=== PATIENT | female | born 1940 | race Caucasian/White ===

== ENCOUNTER → 2017-12-03 13:32 | Outpatient (CLI) | payer MEDICARE, OTHER, SELFPAY ==
--- NOTE | 2017-12-03 13:36 | RAD_ITS ---
STUDY: X-RAY - UNILATERAL RIBS ( LEFT ) WITH CHEST REASON FOR EXAM: Female, 77 years old. Sharp pain in mid lateral to anterior left rib after shutting door TECHNIQUE - RIBS: 2 view(s) of the ribs. TECHNIQUE - CHEST: Single frontal view of the chest. COMPARISON: Chest x-ray 04/30/2015. CT chest 05/19/2014 FINDINGS - RIBS: Acute minimal displaced fracture anterior 6 left rib. FINDINGS - CHEST: There is no demonstrated pneumothorax. Stable hyperinflation with interstitial disease, blunting of the left costophrenic angle. Stable left basilar nodules. New left perihilar linear interstitial changes possible scarring or atelectasis. Left pleural effusion/thickening along the left lower chest wall. Normal size heart. There are calcified mediastinal lymph nodes. Normal visualized pulmonary arteries. There is atherosclerotic calcification of the aortic arch with tortuosity. There is demineralization of the osseous structures. There is degenerative osteoarthritis of the bilateral shoulders. There is no demonstrated abnormality of the visualized soft tissue structures of the upper abdomen. RAD/Ribs Uni Min 3V w/PA Chest IMPRESSION: RIBS: Acute minimally displaced fracture anterior sixth left rib. CHEST: Stable emphysema, chronic interstitial lung disease, blunting of the left costophrenic angle left lower chest wall, remote granulomatous exposure, arteriosclerosis, osteoporosis and degenerative changes. Question of atelectasis and/or scarring in the left perihilar parenchyma. Electronically Signed: Tierra Hinojosa MD at 3:13 EST , Service support ,
== END ==
PROVIDERS: Family Provider Internal Medicine; PCP Internal Medicine; Visit Provider Internal Medicine
DX: R07.81 Pleurodynia (principal)
CPT/HCPCS: 71101

== ENCOUNTER → 2018-06-03 08:05 | Outpatient (CLI) | payer MEDICARE, OTHER, SELFPAY ==
[2018-06-03 08:11] LABS: Bacteria 0 SEEN /hpf (None Seen); Mucous, Urine 0 SEEN /hpf (<or=2+); Red Blood Cells-Urine 0 SEEN /hpf (0-5); White Blood Cells 0 SEEN /hpf (0-5)
[2018-06-03 08:57] LABS: Color, Urine Yellow (Yellow); Glucose, Dipstick Normal (Normal); Ketone-Dipstick Negative (Negative); Leukocyte Esterase-Dipstick Negative /ul (Negative); Nitrite-Dipstick Negative (Negative); Occult Blood-Urine Negative /ul (Negative); Protein-Dipstick 30 mg/dl (Negative); Specific Gravity, Urine 1.005 (1.002-1.030); Urine Bilirubin Dipstick Negative (Negative); Urine Clarity Clear (Clear); Urine Urobilinogen Normal (Normal)
[2018-06-03 09:02] LABS: Squamous Epithelial Cells - UA 0-5 SEEN /hpf (5-10)
[2018-06-03 09:04] LABS: Absolute Lymphocyte Count 1.48 X10^3/ul (0.83-4.51); Absolute Neutrophil Count 7.6 X10^3/uL (2.0-7.7); Basophil# 0.05 X10^3/uL; Basophil% 0.5 % (0-1); Eosinophil# 0.31 X10^3/uL; Hematocrit 55.5 % (37-47); Lymphocyte # 1.48 X10^3/ul (4.0); Lymphocyte % 14.2 % (19-41); Mean Corp Hgb Conc 32.4 g/gl (32-36); Mean Corpuscular Hgb 29.8 pg (27.0-32.0); Mean Corpuscular Volume 91.9 fL (81-99); Mean Platelet Vol. 10.7 fl (6.2-12.0); Monocyte# 0.98 X10^3/uL; Monocyte% 9.4 % (0-10); Neutrophil # 7.56 X10^3/uL (2.7-7.7); Neutrophil % 72.6 % (47-70); Platelet Count 224 K/mm3 (150-450); RBC Distribution Width CV 16.9 % (11.6-14.6); RBC Distribution Width SD 56.5 fl (35.1-43.9); Red Blood Count 6.04 M/mm3 (4.2-5.4); White Blood Count 10.4 K/mm3 (4.4-11.0)
[2018-06-03 09:13] LABS: POSITIVE COUNT NO; POSITIVE DIFFERENTIAL NO; POSITIVE MORPHOLOGY NO
[2018-06-03 09:23] LABS: Microalbumin:Creatinine Ratio 725.2 mg/g CRE (<30 mg/g CRE)
[2018-06-03 09:33] LABS: Vitamin D,25 Hydroxy 48.8 ng/mL (29.95-100.01)
[2018-06-03 09:58] LABS: BUN 12 mg/dL (7-18); Creatinine, Serum 0.75 mg/dL (0.55-1.02); Glucose 85 mg/dL (74-106)
[2018-06-03 09:59] LABS: ALB/GLOB Ratio 0.9 RATIO (0.9-2.4); AST(SGOT) 29 U/L (15-37); Alanine Aminotransfer ALT/SGPT 18 U/L (13-56); Albumin, Serum 3.7 g/dL (3.2-5.0); Alkaline Phosphatase 81 U/L (45-117); Anion Gap 7 (5-15); BUN/Creat Ratio 15.9 RATIO (10-20); Calcium,Total 10.2 mg/dL (8.5-10.1); Chloride 96 mmol/L (98-107); Cholesterol 129 mg/dL (200); EST Glomerular Filtration Rate 79 mL/min (>60); Est Glom Filt Rate - Afr Amer 96 mL/min (>60); Globulin 4.3 g/dL (2.2-4.2); High Density Lipoprotein 59 mg/dL; Potassium 4.8 mmol/L (3.5-5.1); Sodium Level 133 mmol/L (136-145); T4 Free Direct 1.17 ng/dL (0.76-1.46); Thyroid Stim Hormone (TSH) 2.48 uIU/mL (0.358-3.74); Triglycerides 166 mg/dL; Very Low Density Lipoprotein 33 mg/dL (5-40)
[2018-06-05 12:09] LABS: CHOLESTEROL TOTAL 147 mg/dL (100-199); HDL-C 52 mg/dL (>39); HDL-P TOTAL 31.5 umol/L (>=30.5); SMALL LDL-P 279 nmol/L (<=527); TRIGLYCERIDES 168 mg/dL (0-149)
[2018-06-06 17:01] LABS: LDL SIZE 20.9 nm (>20.5); LDL-C 61 mg/dL (0-99); LDL-P 743 nmol/L (<1000); LP-IR SCORE ** 47 (<=45)
== END ==
PROVIDERS: Family Provider Internal Medicine; PCP Internal Medicine; Visit Provider Internal Medicine
DX: E11.65 Type 2 diabetes mellitus with hyperglycemia (principal); I25.10 Atherosclerotic heart disease of native coronary artery without angina pectoris; E78.00 Pure hypercholesterolemia, unspecified; R94.6 Abnormal results of thyroid function studies; E55.9 Vitamin D deficiency, unspecified
CPT/HCPCS: 80053; 80061; 81001; 82043; 82306; 82570; 83704; 84439; 84443; 84481; 85025

== ENCOUNTER → 2018-06-04 09:38 | Outpatient (CLI) | payer MEDICARE, OTHER, SELFPAY ==
--- NOTE | 2018-06-04 09:42 | RAD_ITS ---
STUDY: X-RAY - ABDOMEN/PELVIS REASON FOR EXAM: Female, 78 years old. Abdominal pain TECHNIQUE: A single AP view of the abdomen and pelvis was obtained. COMPARISON: CT abdomen and pelvis dated March 19, 2017 FINDINGS: The lung bases were not imaged. There is an unremarkable bowel gas pattern. There is no demonstrated free abdominal air. There is no demonstrated abnormality of the major organs. There are stable phleboliths in the mid left pelvis. There are diffuse vascular calcifications. There are mild degenerative changes in the visualized spine. RAD/Abdomen Single View IMPRESSION: No acute abnormalities are seen in the abdomen or pelvis. Electronically Signed: America Gan MD at 1:29 EDT Tel Direct: [phone], Service support ,
--- NOTE | 2018-06-04 09:43 | RAD_ITS ---
STUDY: X-RAY - LUMBAR SPINE REASON FOR EXAM: Female, 78 years old. Pain TECHNIQUE: Five view(s) of the lumbar spine were obtained. COMPARISON: CT abdomen and pelvis dated March 19, 2017 FINDINGS: Normal lumbar lordosis. There is no significant scoliosis. There is normal alignment of the vertebrae. The vertebral bodies show no significant abnormalities. Vertebral body heights are maintained. There is mild disc space narrowing at L5-S1. There is atherosclerotic calcification of the abdominal aorta without a demonstrated aneurysm. RAD/L/S Spine Min 4 Views IMPRESSION: There are mild degenerative disc changes at L5-S1. Electronically Signed: America Gan MD at 22:44 EDT Tel Direct: [phone], Service support ,
== END ==
PROVIDERS: Family Provider Internal Medicine; PCP Internal Medicine; Visit Provider Nurse Practitioner Gerontology
DX: M54.5 Low back pain (principal); R10.9 Unspecified abdominal pain
CPT/HCPCS: 72110; 74018

== ENCOUNTER → 2018-07-02 06:25 | Outpatient (CLI) | payer MEDICARE, OTHER, SELFPAY ==
--- NOTE | 2018-07-02 13:18 | STRESSREP ---
Stress Test Report Date: 07/02/2018 Procedure: Pharmacologic stress nuclear imaging study Indications: Abnormal ECG; CAD; PCI Consent: Per the patient Procedure: The patient underwent pharmacologic (Regadenoson) evaluation with a peak heart rate of 110 beats per minute (77 predicted maximal heart rate) and a peak blood pressure of 168/72 mmHg. The baseline ECG demonstrated sinus rhythm with a left bundle branch block pattern. The peak pharmacologic ECG demonstrated a continued left bundle branch block pattern. There were rare ventricular couplets during recovery. There was no complaint of chest discomfort during pharmacologic infusion or recovery. The examination was discontinued secondary to completion of protocol. Impression: 1. Pharmacologic (Regadenoson) evaluation 2. Peak pharmacologic ECG with a continued left bundle branch block pattern. 3. There were rare ventricular couplets during recovery 4. Nuclear images pending Myocardial perfusion imaging study: Technique: The patient was injected with 11.3 millicuries of technetium 99m Cardiolite and subsequently rest SPECT Cardiolite nuclear imaging was obtained in the horizontal long, vertical long, and short axis views. The patient underwent pharmacologic (Regadenoson) evaluation with a peak heart rate of 110 beats per minute (77 % percent predicted maximal heart rate) and a peak blood pressure of 168/72 mmHg. The patient was injected with 33.6 millicuries of technetium 99m Cardiolite and subsequently stress SPECT Cardiolite nuclear imaging was obtained in the horizontal long, vertical long, and short axis views. A gated Cardiolite study at peak stress was obtained. Interpretation: Rest and stress SPECT Cardiolite nuclear imaging status post realignment, normalization, and attenuation correction demonstrate a small area of diminished tracer uptake in portions of the distal anteroseptal/septal apical segments without significant change between rest and stress. There are similar type changes on the resting and stress polar map images. There is end systolic thickening and brightening. The gated Cardiolite study demonstrates myocardial thickening and inward wall motion. The reported LVEF is 67 %. Impression: 1. Rest and stress SPECT currently nuclear imaging demonstrate a small area of diminished tracer uptake in portions of the distal anteroseptal/septal apical segments without significant change between rest and stress potentially compatible with the underlying IVCD pattern, although, an area of previous myocardial injury/infarction cannot necessarily be excluded. There are no myocardial perfusion changes consider diagnostic for associated stress-induced myocardial ischemia. 2. The gated Cardiolite study reports an LVEF of 67 %. This note was generated with [employer] software. It may contain incorrect words, spelling, and punctuation that were not noted in checking the note before signing.
== END ==
PROVIDERS: Family Provider Internal Medicine; PCP Internal Medicine; Visit Provider Internal Medicine
DX: I25.10 Atherosclerotic heart disease of native coronary artery without angina pectoris (principal); R94.31 Abnormal electrocardiogram [ECG] [EKG]; J44.9 Chronic obstructive pulmonary disease, unspecified; M81.0 Age-related osteoporosis without current pathological fracture; Z12.2 Encounter for screening for malignant neoplasm of respiratory organs; Z87.891 Personal history of nicotine dependence
CPT/HCPCS: 78452; 93017; 93306; A9500; G0297; A4216; J2785

== ENCOUNTER → 2018-07-29 10:27 | Outpatient (CLI) | payer MEDICARE, OTHER, SELFPAY ==
--- NOTE | 2018-07-29 07:00 | PET_ITS ---
EXAMINATION: FDG PET CT INDICATIONS: A 78-year-old female with reported history of pulmonary nodularity. COMPARISON EXAMINATION: CT of the chest report dated 07/02/18. NON-INDEX LESION SIZE SUV INTERPRETATION Mediastinum, aorticopulmonary window 2.3 (max) Quantitative criteria for viable neoplasm are not fulfilled Right parotid space 1.1 Quantitative criteria for viable neoplasm are not fulfilled TECHNIQUE: Following the intravenous administration of 15.8 mCi of F-18 deoxyglucose via the right hand, multiplanar image acquisitions of the neck, chest, abdomen and pelvis to level of mid thigh, obtained at one hour post radiopharmaceutical administration contemporaneously interpreted with the current CT of the neck, chest, abdomen and pelvis to level of mid thigh, dated 07/29/[address] of the chest report dated 07/02/18 reveal: SERUM GLUCOSE LEVEL: 124 mg/dl. HEIGHT: 62 inches. WEIGHT: 120 lbs. FINDINGS: 1. Focal increased glucose metabolism is defined in the superior and carinal level mediastinum, region of the aorticopulmonary window generating a calculated maximum standard uptake value of 2.3. 2. Normal physiologic distribution of the radiopharmaceutical is apparent in the hepatic (3.3) and splenic parenchyma, both renal units, bladder and visualized intestinal tract. There is symmetric and preserved glucose metabolism noted in the visualized portion of the frontal, occipital, temporal and parietal lobes of the cerebral cortex, as well as cerebral hemispheres and basal ganglia. Diffuse intestinal tract activity is noted throughout all four quadrants of the abdominal-pelvic retroperitoneum, mesentery consistent with normal physiologic distribution of the radiopharmaceutical. Increased glucose concentration is noted in the right parotid space generating a calculated maximum standard uptake value of 1.1. Pertinent CT findings are as follows. CHEST: Atherosclerotic calcification is defined in the thoracic aorta without evidence of dilatation, aneurysm formation. Coronary arterial calcification is observed. Right-left axillary soft tissue densities with fatty hilus formation are non-glucose avid. Emphysematous change is noted in the bilateral upper-mid lung zones. Parenchymal densities defined in the bilateral hemithorax demonstrate no evidence of quantitatively significant, discernible increased glucose concentration. ABDOMEN AND PELVIS: Calcified granuloma formation is noted within the hepatic and splenic parenchyma. Exophytic density is defined in the left kidney without evidence of facilitated glucose metabolism demonstrating soft tissue density with a Hounsfield unit evaluation. There is evidence of an apparent splenule in the left upper abdomen. Atherosclerotic calcification is defined in the abdominal aorta without evidence of dilatation, aneurysm formation. Pelvic arterial calcification is observed. Colonic diverticulosis is defined. Right-left inguinal soft tissue densities with fatty hilus formation are ametabolic. The uterus appears surgically absent. SKELETAL: Degenerative changes defined in the cervical, thoracic and lumbar spine demonstrate no evidence for glucose hypermetabolism. Diffuse demineralization is defined. PET/PET/CT Tumor Base -Thigh Init IMPRESSION: 1. NEGATIVE EXAMINATION. There is no definitive quantitative scintigraphic evidence of viable neoplasm. 2. Mild increased glucose concentration observed in the mediastinum and aorticopulmonary window does not fulfill quantitative criteria for viable neoplasm. (Velasquezkikrishna et al, Journal of Clinical Oncology 16:2142, 1998). 3. Asymmetric increased FDG concentration noted in the right parotid space does not fulfill quantitative criteria for viable neoplasm. 4. Anatomic stability may be ensured in the bilateral hemithorax ametabolic parenchymal densities with repeat CT of the thorax in six months. (Yuliya, Seminars in Thoracic and Cardiovascular Surgery 14:292, 2002). Electronic Signature Will Bell D.O. Electronically Signed: Will Bell DO at 23:49 EDT Tel , Service support ,
== END ==
PROVIDERS: Family Provider Internal Medicine; PCP Internal Medicine; Visit Provider Internal Medicine
DX: R91.8 Other nonspecific abnormal finding of lung field (principal)
CPT/HCPCS: 78815; A9552

== ENCOUNTER → 2018-08-22 12:24 | Outpatient (CLI) | payer MEDICARE, OTHER, SELFPAY ==
--- NOTE | 2018-08-22 12:27 | BI_ITS ---
MAMMOGRAPHY - BILATERAL SCREENING REASON FOR EXAM: Female, 78 years old. Routine annual screening examination. PERTINENT HISTORY: Non-contributory. Remote right needle breast biopsy. TECHNIQUE: Digital bilateral breast dinora (3D mammographic acquisition) in the CC and MLO projections. 2-D mediolateral oblique (MLO) and craniocaudad (CC) views of both breasts were obtained. CAD: Full Field Digital Mammography with Computer Added Detection was performed. COMPARISON: Comparison is made with prior study dated February 28, 2017 and February 16, 2016. FINDINGS: Breast Composition: There are scattered areas of fibroglandular density. There are no dominant masses or suspicious calcifications. Once again, there is a densely calcified nodule in the mid medial portion of the right breast. This is unchanged. No other significant abnormalities are identified. There has been no significant change since the prior study. BI/SCREENING MAMM (CAD), BILAT IMPRESSION: Stable bilateral screening mammogram. Yearly follow-up mammogram recommended. (A) ASSESSMENT CATEGORY: BIRADS Category 2: Benign. A letter regarding these results will be sent to the patient by the facility within 30 days. Approximately 10% of breast cancers are not detected by mammography. A normal mammogram should not delay biopsy of a clinically suspicious abnormality. [id number] Electronically Signed: Vel David MD at 10:15 EDT Tel [phone], Service support ,
--- NOTE | 2018-08-22 12:29 | BD_ITS ---
STUDY: DUAL ENERGY X-RAY ABSORPTIOMETRY / DXA REASON FOR EXAM: Female, 78 years old. The patient is postmenopausal. Loss of height. TECHNIQUE: Bone Mineral Density (BMD) measurements of lumbar spine and bilateral hips were obtained. COMPARISON: Comparison is made with prior study dated December 29, 2014. FINDINGS: Lumbar Spine (L1-L4): g/cm2 (0.914) / T-score (-2.2) / Z-score (-0.4) Findings are suggestive of osteopenia with a moderate fracture risk. Left Femur Total: g/cm2 (0.643) / T-score (-2.9) / Z-score (-1.0) Left Femoral Neck: g/cm2 (0.635) / T-score (-2.9) / Z-score (-0.8) Right Femur Total: g/cm2 (0.644) / T-score (-2.9) / Z-score (-1.0) Right Femoral Neck: g/cm2 (0.627) / T-score (-3.0) / Z-score (-0.9) The T-Scores on the most recent prior examination were: Lumbar Spine (L1-L4): There has been improvement of bone density since the previous examination. Left Femur Total: which represents an improvement of 1.3%. Right Femur Total: which represents a worsening of 5.7%. BD/Dexa Bone Density Study IMPRESSION: The patient is considered osteoporotic as outlined below according to World [employer]ah[employer] Organization (WHO) criteria with a high fracture risk. There has been improvement of bone density since the previous examination. Reference Information: The T-score is the number of standard deviations above or below the standard which is normal for young adults at their peak bone mineral density. The World Health Organization (WHO) interprets the T-scores as follows: Above -1 Normal bone density Between -1 and -2.5 Osteopenia Equal to / or below -2.5 Osteoporosis As a practical clinical guideline, osteopenia may be graded as follows: Mild -1 through -1.5 Moderate -1.6 through -2.0 Severe -2.1 through -2.4 The Z-score is the number of standard deviations above or below age-matched controls. A Z-score of less than -1.5 would be considered abnormal. References: 1. NIH Osteoporosis and Related Bone Diseases http://www.osteo.org 2. International Society for Clinical Densitometry http://www.iscd.org 3. National Osteoporosis Foundation http://www.nof.org Electronically Signed: Vel David MD at 15:12 EDT Tel [phone], Service support ,
== END ==
PROVIDERS: Family Provider Internal Medicine; PCP Internal Medicine; Visit Provider Internal Medicine
DX: Z12.31 Encounter for screening mammogram for malignant neoplasm of breast (principal); M81.0 Age-related osteoporosis without current pathological fracture
CPT/HCPCS: 77063; 77067; 77080

== ENCOUNTER → 2019-01-30 13:14 | Outpatient (CLI) | payer MEDICARE, OTHER, SELFPAY ==
[2018-10-25 14:08] VITALS: BMI 20.2
--- NOTE | 2019-01-30 13:24 | RAD_ITS ---
STUDY: X-RAY CHEST REASON FOR EXAM: Female, 79 years old. Cough. TECHNIQUE: PA and lateral views of the chest. COMPARISON: Comparison is made with prior study dated April 30, 2015. FINDINGS: There is evidence of diffuse increased interstitial markings in both lungs with areas of confluence in the right lower lobe. Small bilateral pleural effusions slightly worse on the right side. Findings are suggestive of CHF with bibasilar atelectasis and/or superimposed right basilar infiltrate. Normal size heart. Normal mediastinum and mellissa. Normal visualized pulmonary arteries. There is atherosclerotic calcification of the aortic arch with tortuosity. There is demineralization of the osseous structures. Increased kyphosis. Normal visualized ribs, clavicles, and shoulders. There is no demonstrated abnormality of the visualized soft tissue structures of the upper abdomen. RAD/Chest PA and Lateral IMPRESSION: Findings suggestive of CHF with right basilar atelectasis and/or infiltrate and small bilateral effusions. Electronically Signed: Vel David, at 14:30 EDT , Service support ,
== END ==
PROVIDERS: Family Provider Internal Medicine; PCP Internal Medicine; Referring Provider Internal Medicine; Visit Provider Internal Medicine
DX: R05 Cough (principal)
CPT/HCPCS: 71046

== ENCOUNTER 2019-01-31 19:01 | Inpatient (IN) | payer MEDICARE, OTHER, SELFPAY ==
[2018-10-25 14:08] VITALS: BMI 20.2
[2019-01-31] VITALS (15 sets, daily range): BP systolic 123–164; BP diastolic 57–77; PULSE 68–80; RESP 18–38; TEMP 36.4–36.7; O2SAT 78–91; BMI 22.0; BMI 21.9
--- NOTE | 2019-01-31 19:45 | EKG12_ITS ---
Test Reason : Blood Pressure : / mmHG Vent. Rate : 068 BPM Atrial Rate : 068 BPM P-R Int : 198 ms QRS Dur : 140 ms QT Int : 438 ms P-R-T Axes : 062 -28 114 degrees QTc Int : 465 ms Normal sinus rhythm Left bundle branch block Abnormal ECG Confirmed by SHREYAS CRUMP, ABIMBOLA ([id number]), fan mail editor NAOMI HIGGINS ([id number]) on 02/03/2019 1:48:48 PM Referred By: Isaiah Barnes Confirmed By:ABIMBOLA PRITCHETT MD
--- NOTE | 2019-01-31 19:50 | RAD_ITS ---
STUDY: X-RAY CHEST REASON FOR EXAM: Female, 79 years old. Shortness of breath TECHNIQUE: 1 view COMPARISON: January 30, 2019 FINDINGS: There is a background of chronic interstitial lung disease but no acute pneumonia or failure. No pleural effusions. Mild cardiomegaly. Central vascular congestion. Normal visualized thoracic spine. Normal visualized ribs, clavicles, and shoulders. There is no demonstrated abnormality of the visualized soft tissue structures of the upper abdomen. RAD/Chest 1 View (Portable) IMPRESSION: Mild cardiomegaly with central vascular congestion. No chronic interstitial lung disease Electronically Signed: Raymon Kincaid MD at 21:47 EDT Tel , Service support ,
--- NOTE | 2019-01-31 20:09 | ED.DCSUM_ITS ---
- ER Visit Summary Date of Service: 01/31/19 Chief Complaint: Generalized weakness History of Present Illness: The patient is a 79 F history of COPD, CVA, PR x2 with stent on Plavix and aspirin. History of diabetes and chronic hypoxia on O2 secondary to COPD. Patient states she just feels weaker. Her primary care physician Dr. No Espinoza called in and thought she was having more shortness of breath. Patient states it is more generalized weakness and her shortness of breath. She denies chest pain or fever. She denies dysuria. She denies melena or diarrhea. She denies abdominal pain. Her and her friends state this is been going on a month. Physical Examination: Older female vital signs stable except for her pulse ox is only 90% on oxygen she is hypoxic. HEENT exam dry mucous membranes. Neck nontender no JVD. Lungs prolonged expiratory phase bilaterally. Wheezes expiratory. No rales or rhonchi. Heart regular rhythm rate about 70 no murmur. Abdomen is soft and nontender. Normal bowel sounds no peritoneal signs. Extremities moves all 4. She does have 1+ edema both lower extremities primarily around the ankles. Calves are nontender. Neurologically she is awake and alert and moving all 4 extremities. Back nontender. Test Results: Chest x-ray shows chronic changes consistent with COPD. Basilar congestion consistent with CHF. And borderline cardiomegaly. CBC showed a white count 7. Hemoglobin 18. No bands. Chemistry panel shows a potassium of 3.0. Creatinine 1.4. Normal gap. UA normal. Troponin normal. Lactate is pending. BNP of 2261 consistent with CHF. Blood gas pH 7.34 with 84% sat on 4 L of oxygen. With a PCO2 of 52 on oxygen. She is in respiratory failure. Emergency Department Course and Treatment: Elderly female with weakness and chronic hypoxia. Treated with aerosols with DuoNeb and albuterol. IV Solu-Medrol. And she will be given IV Lasix chest. Treatment Plan: Patient is doing better after aerosols. I very spoken to the hospitalist who is in the room evaluating her for admission at this time. Disposition: Admission Impression: Generalized weakness Exacerbation of COPD with chronic hypoxia Acute CHF Respiratory failure with worsening hypoxia History of IDDM This note was generated with [employer] dictation software. It may contain incorrect words, spelling, and punctuation that were not noted in review of the chart prior to signing ED Disposition - Plan for ED Patient: Referrals: No Espinoza DO [Primary Care Provider] -
[2019-01-31] MEDS: MethylPREDNISolone 125 MG/2 ML Vial IV (20:17)
[2019-01-31 20:21] LABS: Absolute Lymphocyte Count 1.14 X10^3/ul (0.83-4.51); Absolute Neutrophil Count 5.6 X10^3/uL (2.0-7.7); Basophil# 0.03 X10^3/uL; Basophil% 0.4 % (0-1); Eosinophils% 1.3 % (0-5); Lymphocyte # 1.14 X10^3/ul (4.0); Lymphocyte % 14.5 % (19-41); Mean Corp Hgb Conc 32.4 g/gl (32-36); Mean Corpuscular Hgb 30.1 pg (27.0-32.0); Mean Corpuscular Volume 92.8 fL (81-99); Mean Platelet Vol. 11.3 fl (6.2-12.0); Monocyte% 12.8 % (0-10); Neutrophil # 5.56 X10^3/uL (2.7-7.7); Neutrophil % 70.9 % (47-70); Platelet Count 127 K/mm3 (150-450); RBC Distribution Width SD 53.9 fl (35.1-43.9); Red Blood Count 6.25 M/mm3 (4.2-5.4); White Blood Count 7.8 K/mm3 (4.4-11.0)
[2019-01-31 20:22] LABS: POSITIVE COUNT NO; POSITIVE DIFFERENTIAL NO; POSITIVE MORPHOLOGY NO
[2019-01-31 20:23] LABS: Hemoglobin 18.8 g/dl (12.0-15.0)
--- NOTE | 2019-01-31 20:27 | ED.RN ---
PT HEMOGLOBIN 18.8. DR. DAVALOS INFORMED.
[2019-01-31 20:31] LABS: Anion Gap 9 (5-15); BUN 24 mg/dL (7-18); BUN/Creat Ratio 16.7 RATIO (10-20); Calcium,Total 8.9 mg/dL (8.5-10.1); Chloride 99 mmol/L (98-107); Creatinine, Serum 1.44 mg/dL (0.55-1.02); EST Glomerular Filtration Rate 37 mL/min (>60); Est Glom Filt Rate - Afr Amer 45 mL/min (>60); Estimated Creatinine Clearance 25.05 ml/min; Glucose 178 mg/dL (74-106); Sodium Level 139 mmol/L (136-145)
[2019-01-31 20:45] LABS: Allen Test POS; Base Excess 4 mmol/L (-2 to +2); Bicarbonate 29.8 mmol/L (22-26); Blood Gas Specimen Type ART; O2 Delivery Device Nasal Can; PO2 52 mmHG (75-100); SITE L Radial; SO2 84 % (95-99); Total Carbon Dioxide 31 mmol/L; pCO2 55.4 mmHg (35-45); pH 7.34 (7.35-7.45)
[2019-01-31 20:54] LABS: BNP,B-Type NATRIURETIC PEPTIDE 2261.6 pg/mL (0-100)
[2019-01-31] MEDS: Albuterol 2.5 MG/3 ML VIAL.NEB. INHALATION ×2 (21:14)
[2019-01-31] MEDS: Ipratropium/Albuterol Sulfate 3 ML AMPUL.NEB INHALATION (21:14)
[2019-01-31 21:51] LABS: Bacteria 0 SEEN /hpf (None Seen); Mucous, Urine 0 SEEN /hpf (<or=2+); Red Blood Cells-Urine 0 SEEN /hpf (0-5)
[2019-01-31 21:53] LABS: Color, Urine Yellow (Yellow); Glucose, Dipstick 100 mg/dl (Normal); Ketone-Dipstick Negative (Negative); Leukocyte Esterase-Dipstick Negative /ul (Negative); Nitrite-Dipstick Negative (Negative); Occult Blood-Urine 150 /ul (Negative); Protein-Dipstick 100 mg/dl (Negative); Urine Bilirubin Dipstick Negative (Negative); Urine Clarity Clear (Clear); Urine Urobilinogen Normal (Normal); Urine pH 6.5 (5.0 - 8.0)
[2019-01-31 22:04] LABS: Squamous Epithelial Cells - UA 0-5 SEEN /hpf (5-10); White Blood Cells 0-5 SEEN /hpf (0-5)
[2019-01-31 22:41] LABS: Lactic Acid 1.4 mmol/L (0.4-2.0)
[2019-01-31] MEDS: Furosemide 40 MG/4 ML Vial IV (23:17)
--- NOTE | 2019-01-31 23:23 | PCM.HP.STD ---
Problem List (1) Shortness of breath Status: Acute (2) Generalized weakness Status: Acute History of Present Illness Date of Admission: 01/31/19 Chief Complaint: Shortness of breath The patient is a 79 year old F who was seen in the emergency room at [facility] with a chief complaint of shortness of breath and generalized weakness. She was sent in by her PCP for evaluation. Patient is on chronic home oxygen at 2 L, patient continues to smoke. Patient denies any fevers or chills, she denies any recent change in the color of her sputum. Patient denies any chest pain. Patient states she has shortness of breath at rest and on activity. Labs obtained in the emergency room revealed an increased hemoglobin at 18.8, arterial blood gas was drawn on 4 L nasal cannula: PH 7.34, PCO2 55.4, PO2 52, patient's chemistry panel was remarkable for potassium of 3, creatinine of 1.44, BUN of 24, glucose of 178, and the patient's beta natruretic peptide was elevated at 2261. Patient's urinalysis was unremarkable. Patient's chest x-ray showed bilateral infiltrates suggesting central vascular congestion, this examiner also felt that the patient had chronic interstitial lung changes present although the radiologist did not agree with this finding. She was given 40 mg of Lasix IV, she will be admitted to PCU for acute diastolic congestive heart failure, she will also be seen by pulmonary medicine in consultation, she will also have a CT of her chest performed. Patient's last chest CT showed a spiculated nodule-this chest CT was performed in June 2018 and the patient had a PET scan in July 2018 which did not show evidence of increased uptake indicative of cancer. CAT scan showed emphysematous changes worse in the upper lobes with increased focal linear scarring in the lingular segment of the left upper lobe. Past Medical History Past Medical History (Chronic Problems): Chronic Problems (Last Updated 08/05/18 @ 16:17 by Nayeli Young) Tobacco abuse (Chronic) Essential hypertension (Chronic) Atherosclerotic heart disease of [place] coronary artery without angina pectoris (Chronic) Presence of stent in coronary artery (Chronic ~03/2002) PTCA/Stent of RCA 03/2002 COPD (chronic obstructive pulmonary disease) (Chronic) Chronic back pain (Chronic) Hyperlipidemia (Chronic) Diabetes mellitus, type II (Chronic) Medical History: Medical History (Last Updated 08/05/18 @ 16:17 by Nayeli Young) History of myocardial infarction (Acute) I25.2 Essential hypertension (Chronic) I10 Atherosclerotic heart disease of [place] coronary artery without angina pectoris (Chronic) I25.10 Decreased stool caliber (Acute) R19.5 Constipation (Acute) K59.00 COPD (chronic obstructive pulmonary disease) (Chronic) J44.9 Chronic back pain (Chronic) M54.9, G89.29 Hyperlipidemia (Chronic) E78.5 Diabetes mellitus, type II (Chronic) E11.9 History of hysterectomy Z90.710 Peripheral vascular disease I73.9 TIA (transient ischemic attack) G45.9 Allergies Sulfa (Sulfonamide Antibiotics) Allergy (Verified 01/31/19 19:04) Nausea/Vom/Diarrhea acetaminophen [From Vicodin] Adverse Reaction (Verified 01/31/19 19:04) Other hydrocodone bitartrate [From Vicodin] Adverse Reaction (Verified 01/31/19 19:04) Other Home Medications: Ambulatory Orders Medication Instructions Recorded Aspirin [Aspirin, Baby] 81 mg PO DAILY@0800 04/30/15 Clopidogrel Bisulfate [Plavix] 75 mg PO DAILY 04/30/15 Folic Acid 0.8 mg PO DAILY@0800 04/30/15 Losartan Potassium [Cozaar] 100 mg PO DAILY 04/30/15 Nitroglycerin [Nitrostat] 0.4 mg SUBLINGUAL Q5M PRN 04/30/15 [place]-3 Fatty Acids [Fish Oil] 300 mg PO DAILY 04/30/15 Rosuvastatin Calcium [Crestor] 40 mg PO DAILY 04/30/15 glipiZIDE [Glucotrol] 10 mg PO BID 04/30/15 Metformin HCl [Glucophage] 1,000 mg PO BID #1 tab 05/02/15 Sitagliptin Phosphate [Januvia] 100 mg PO DAILY 02/19/17 metoprolol succinate ER 100 mg 50 mg PO QDAY tab 04/29/18 tablet,extended release 24 hr spironolactone 25 mg tablet 12.5 mg PO DAILY #45 tab 01/02/19 Surgical History: Surgical History (Last Updated 08/05/18 @ 16:17 by Nayeli Young) Presence of stent in coronary artery (Chronic) Onset Date: ~03/2002 Z95.5 PTCA/Stent of RCA 03/2002 History of breast biopsy Z98.890 History of cholecystectomy Z90.49 History of heart artery stent Z95.5 Postsurgical percutaneous transluminal coronary angioplasty (PTCA) status Onset Date: ~03/2002 Z98.61 PTCA/Stent of RCA 03/2002 Surgical History: cataract, hysterectomy, - - Coronary artery stent placement Psychiatric History: Anxiety [employer] History: No pertinent [employer] history Lives: Alone Smoking Status: Current every day smoker Tobacco Use: Cigarettes Alcohol: None Drugs: None - *Family History Maternal Family History: Family History (Last Updated 08/05/18 @ 16:19 by Nayeli Young) Mother CAD (coronary artery disease) Myocardial infarction, Onset Age: 50 Diabetes Sister CAD (coronary artery disease) History of coronary artery bypass surgery Sister CAD (coronary artery disease) Sister History of coronary artery bypass surgery Other CVA (cerebral vascular accident) Cancer Hypertension History Items: Diabetes Paternal Family History: Family History (Last Updated 08/05/18 @ 16:19 by Nayeli Young) Mother CAD (coronary artery disease) Myocardial infarction, Onset Age: 50 Diabetes Sister CAD (coronary artery disease) History of coronary artery bypass surgery Sister CAD (coronary artery disease) Sister History of coronary artery bypass surgery Other CVA (cerebral vascular accident) Cancer Hypertension History Items: Cancer - Father w/ prostate CA. Review of Systems Constitutional: Reports: Weakness, Fatigue. Denies: Anorexia, Chills, Fever, Night Sweats, Malaise, Weight Change Eyes: Denies: Blurred vision, Cataracts, Conjunctivae Inflammation, Double vision, Drainage HEENT: Denies: Difficulty Swallowing, Dysphasia, Ear Pain, Eye Pain, Hearing Changes, Nasal bleeding, Nasal Congestion, Post Nasal Drip Cardiovascular: Denies: Chest Pain, Claudication, Chest Pressure, Chest Tightness, Heaviness, Orthopnea, Palpitations Respiratory: Reports: Cough, Shortness of Breath, Shortness of breath at rest, Shortness of breath upon exertion, Sputum production - Clear sputum production. Denies: Hemoptysis, Pleuritic Pain Gastrointestinal: Denies: Abdominal Pain, Constipation, Diarrhea, Hematemesis, Hematochezia, Nausea Genitourinary: Denies: Frequency, Hematuria, Nocturia, Retention Gynecological: Denies: Breast symptoms Musculoskeletal: Denies: Back Pain, Foot Pain, Hand Pain, Joint swelling, Joint Tenderness, Leg Pain Skin: Denies: Dryness, Jaundice, Pruritis, Rash Neurological: Denies: Balance problems, Blurred vision, Double vision, Change in Speech, Slurred speech, Difficulty swallowing, Focal weakness, Headaches, Incoordination Psychiatric: Denies: Anxiety, Depression Endocrine: Denies: Change in Body Habitus, Heat/ Cold Intolerance, Polyuria, Hx of Irradiation Hematologic/ Lymphatic: Denies: Adenopathy, Anemia, Petechiae, Purpura VTE Information - Inpt Only VTE Present on Admission: No VTE Mechan Device Prophylaxis: None VTE Pharm Prophylaxis ordered?: Yes Patient Problems: Active and Suspected Problems (Last Updated 08/05/18 @ 16:17 by Nayeli Young) Shortness of breath (Acute) Generalized weakness (Acute) - Physical Exam General: Alert, Oriented x3, Cooperative, No apparent distress, Well developed, Well nourished HEENT: Atraumatic, PERRLA, EOMI, Normocephalic Oral: Moist Mucosa Neck: Supple, No JVD, Negative Carotid Bruits, No Nuchal Rigidity, Trachea Midline, Thyroid Normal Size and Texture Lungs: Normal air movement, No rhonchi, No wheeze, Diminished, Rales - Inspiratory rales are noted over the patient's lower lung [place] bilaterally Cardiovascular: Regular rate, Regular Rhythm, Normal S1, Normal S2, No murmurs, No Ectopic Activity, PMI Normal, No rub noted, No Gallop Abdomen: Bowel Sounds Present, Soft, Non Tender, Non-Distended, No hernias noted Extremities: No clubbing, No cyanosis, Capillary Refill Less than 3 Seconds, Edema - +1 pitting edema is noted over the lower extremities bilaterally Skin: No rashes, No breakdown Musculoskeletal: No Tenderness to Palpation of Joints or Extremities, No Muscle Wasting Neurological: Cranial nerves II-XII grossly intact, Neuro grossly intact, Sensory exam intact to light touch and pain, Coordination normal Psych/Mental Status: Normal Affect, Appropriate, Alert and oriented to time, place, person, mood and affect Vital Signs Temp Pulse Resp BP Pulse Ox 98 F 76 22 H 164/76 H 89 01/31/19 19:30 01/31/19 21:34 01/31/19 21:34 01/31/19 21:34 01/31/19 21:34 Oxygen Flow Rate (L/min) 4 Oxygen Delivery Method Nasal Cannula Weight: 54.7 kg Body Mass Index (BMI) 22.0 Laboratory Tests Past 24 Hrs 01/31/19 01/31/19 01/31/19 19:48 19:48 19:48 WBC 7.8 RBC 6.25 H Hgb 18.8 H* Hct 58.0 H MCV 92.8 MCH 30.1 MCHC 32.4 RDW 16.0 H RDW Differential 53.9 H Plt Count 127 L MPV 11.3 Immature Gran % (Auto) 0.100 Neut % (Auto) 70.9 H Lymph % (Auto) 14.5 L [place] % (Auto) 12.8 H Eos % (Auto) 1.3 Baso % (Auto) 0.4 Absolute Neuts (auto) 5.6 Absolute Lymphs (auto) 1.14 Total Counted Not Reportable Specimen Type Sample Site pH Bicarbonate Actual POC Total CO2 Base Excess O2 Saturation ABG pCO2 ABG pO2 Patrick Test O2 Delivery Device Liter Flow Blood Gas Notified Whom Sodium 139 Potassium 3.0 L Chloride 99 Carbon Dioxide 31.0 Anion Gap 9 BUN 24 H Creatinine 1.44 H Estim Creat Clear Calc 25.05 Est GFR (MDRD) Af Amer 45 L Est GFR (MDRD) Non-Af 37 L BUN/Creatinine Ratio 16.7 Glucose 178 H Lactic Acid Cancelled Calcium 8.9 Troponin I 0.041 B-Natriuretic Peptide Urine Color Urine Clarity Urine pH Ur Specific [place] Urine Protein Urine Glucose (UA) Urine Ketones Urine Occult Blood Urine Nitrite Urine Bilirubin Urine Urobilinogen Ur Leukocyte Esterase Urine RBC Urine WBC Ur Squamous Epith Cells Urine Bacteria Urine Mucus 01/31/19 01/31/19 01/31/19 19:48 20:41 20:46 WBC RBC Hgb Hct MCV MCH MCHC RDW RDW Differential Plt Count MPV Immature Gran % (Auto) Neut % (Auto) Lymph % (Auto) [place] % (Auto) Eos % (Auto) Baso % (Auto) Absolute Neuts (auto) Absolute Lymphs (auto) Total Counted Specimen Type ART Sample Site L Radial pH 7.34 L Bicarbonate Actual 29.8 H POC Total CO2 31 Base Excess 4 H O2 Saturation 84 L ABG pCO2 55.4 H ABG pO2 52 L Patrick Test POS O2 Delivery Device Nasal Can Liter Flow 4.0 Blood Gas Notified Whom ED Sodium Potassium Chloride Carbon Dioxide Anion Gap BUN Creatinine Estim Creat Clear Calc Est GFR (MDRD) Af Amer Est GFR (MDRD) Non-Af BUN/Creatinine Ratio Glucose Lactic Acid Cancelled Calcium Troponin I B-Natriuretic Peptide 2261.6 H Urine Color Urine Clarity Urine pH Ur Specific [place] Urine Protein Urine Glucose (UA) Urine Ketones Urine Occult Blood Urine Nitrite Urine Bilirubin Urine Urobilinogen Ur Leukocyte Esterase Urine RBC Urine WBC Ur Squamous Epith Cells Urine Bacteria Urine Mucus 01/31/19 01/31/19 21:42 21:58 WBC RBC Hgb Hct MCV MCH MCHC RDW RDW Differential Plt Count MPV Immature Gran % (Auto) Neut % (Auto) Lymph % (Auto) [place] % (Auto) Eos % (Auto) Baso % (Auto) Absolute Neuts (auto) Absolute Lymphs (auto) Total Counted Specimen Type Sample Site pH Bicarbonate Actual POC Total CO2 Base Excess O2 Saturation ABG pCO2 ABG pO2 Patrick Test O2 Delivery Device Liter Flow Blood Gas Notified Whom Sodium Potassium Chloride Carbon Dioxide Anion Gap BUN Creatinine Estim Creat Clear Calc Est GFR (MDRD) Af Amer Est GFR (MDRD) Non-Af BUN/Creatinine Ratio Glucose Lactic Acid 1.4 Calcium Troponin I B-Natriuretic Peptide Urine Color Yellow Urine Clarity Clear Urine pH 6.5 Ur Specific [place] 1.010 Urine Protein 100 H Urine Glucose (UA) 100 H Urine Ketones Negative Urine Occult Blood 150 H Urine Nitrite Negative Urine Bilirubin Negative Urine Urobilinogen Normal Ur Leukocyte Esterase Negative Urine RBC 0 SEEN Urine WBC 0-5 SEEN Ur Squamous Epith Cells 0-5 SEEN Urine Bacteria 0 SEEN Urine Mucus 0 SEEN Assessment/Plan All Active Problems (Last Updated 08/05/18 @ 16:17 by Nayeli Yuong) Shortness of breath (Acute) Generalized weakness (Acute) History of myocardial infarction (Acute) Decreased stool caliber (Acute) Constipation (Acute) #1 acute diastolic congestive heart failure-patient will be admitted to PCU, IV Lasix will be administered, I do not feel the patient needs to be seen by cardiology at this point, patient had an echocardiogram done last June which showed a normal EF with severe pulmonary hypertension. #2 acute on chronic hypoxic respiratory failure secondary to #1 with an overlay of COPD-patient will be seen in consultation by pulmonary medicine, O2 sat will be monitored and oxygen will be titrated if possible #3 pulmonary hypertension #4 type 2 diabetes-blood sugars will be monitored and she will be given sliding scale insulin as needed #5 chronic kidney disease stage III secondary to type 2 diabetes #6 reactive polycythemia secondary to smoking #7 hypokalemia-patient will be given potassium supplementation #8 COPD Code Visit Inpatient E&M: [id number] Init Hosp L3
[2019-02-01] VITALS (20 sets, daily range): BP systolic 110–126; BP diastolic 44–53; PULSE 61–77; RESP 16–20; TEMP 36.1–36.7; O2SAT 86–95
[2019-02-01] MEDS: Ipratropium/Albuterol Sulfate 3 ML AMPUL.NEB INHALATION ×4 (00:15→19:25)
[2019-02-01 05:43] LABS: Absolute Lymphocyte Count 0.33 X10^3/ul (0.83-4.51); Absolute Neutrophil Count 5.2 X10^3/uL (2.0-7.7); Hematocrit 55.3 % (37-47); Hemoglobin 17.8 g/dl (12.0-15.0); Lymphocyte # 0.33 X10^3/ul (4.0); Lymphocyte % 5.9 % (19-41); Mean Corp Hgb Conc 32.2 g/gl (32-36); Mean Corpuscular Hgb 30.2 pg (27.0-32.0); Mean Corpuscular Volume 93.7 fL (81-99); Mean Platelet Vol. 11.1 fl (6.2-12.0); Monocyte% 1.8 % (0-10); Neutrophil # 5.18 X10^3/uL (2.7-7.7); Neutrophil % 92.1 % (47-70); Platelet Count 118 K/mm3 (150-450); RBC Distribution Width CV 15.9 % (11.6-14.6); RBC Distribution Width SD 53.2 fl (35.1-43.9); White Blood Count 5.6 K/mm3 (4.4-11.0)
[2019-02-01 05:44] LABS: Differential Indicated SCAN CRITERIA MET; POSITIVE COUNT NO; POSITIVE DIFFERENTIAL YES; POSITIVE MORPHOLOGY NO
[2019-02-01 05:55] LABS: Anion Gap 8 (5-15); BUN 21 mg/dL (7-18); BUN/Creat Ratio 15.2 RATIO (10-20); Calcium,Total 8.8 mg/dL (8.5-10.1); Chloride 100 mmol/L (98-107); Creatinine, Serum 1.38 mg/dL (0.55-1.02); EST Glomerular Filtration Rate 39 mL/min (>60); Est Glom Filt Rate - Afr Amer 47 mL/min (>60); Estimated Creatinine Clearance 26.14 ml/min; Glucose 301 mg/dL (74-106); Potassium 3.4 mmol/L (3.5-5.1); Sodium Level 139 mmol/L (136-145)
--- NOTE | 2019-02-01 05:55 | CT_ITS ---
STUDY: CT CHEST WITHOUT CONTRAST REASON FOR EXAM: Female, 79 years old. Cough and shortness of breath with weakness RADIATION DOSAGE (If Supplied By Facility): CTDIvol = ( 7.43 ) mGy, DLP = ( 273.10 ) mGycm TECHNIQUE: Transaxial imaging was performed without the administration of intravenous contrast material. Individualized dose optimization techniques were used for this CT. COMPARISON: 07/02/2018 FINDINGS: There is hyperinflation of the lungs consistent with chronic obstructive lung disease (COPD). Diffuse pulmonary vascular congestion and interstitial edema compatible with CHF. Superimposed right lower lobe consolidation with effusion. Stable nodular densities along the midsegment of the left lower lobe along the pleural surface. There is mild cardiac enlargement. There are calcifications of the coronary arteries. Stable small mediastinal lymph nodes Normal hilar regions. Normal unenhanced pulmonary arteries. There is atherosclerotic calcification of the aortic arch with tortuosity and elongation of the aortic arch and descending thoracic aorta. There are multi-level degenerative changes of the thoracic spine. Grossly unremarkable upper abdomen CT/Chest without Contrast IMPRESSION: CHF with right lower lobe consolidation and effusion. Cardiomegaly. Stable left lower lobe pleural-based nodularity. Electronically Signed: Timothy Casanova DO at 8:19 EDT Tel , Service support ,
[2019-02-01] MEDS: Furosemide 20 MG/2 ML VIAL IV ×3 (06:45→21:07)
[2019-02-01] MEDS: 0.9% NaCl Peripheral Flush Adult/Peds IV ×2 (06:45→21:08)
[2019-02-01 06:56] LABS: Bedside Glucose 259 mg/dL (70-110)
[2019-02-01] MEDS: glipiZIDE 10 MG Tablet PO ×2 (08:38→16:14)
[2019-02-01] MEDS: Insulin Lispro 100 UNIT/ML INSULN.PEN SC ×3 (08:39→16:14)
[2019-02-01] MEDS: Clopidogrel Bisulfate 75 MG Tablet PO (08:39)
[2019-02-01] MEDS: Folic Acid 1 MG Tablet PO (08:39)
[2019-02-01] MEDS: Aspirin 81 MG TAB.CHEW PO (08:39)
[2019-02-01] MEDS: Spironolactone 25 MG Tablet 12.5 MG PO (08:40)
[2019-02-01] MEDS: Losartan Potassium 100 MG Tablet PO (08:41)
[2019-02-01] MEDS: Metoprolol(XL)Succ 50 MG Tablet PO (08:42)
[2019-02-01] MEDS: LINAGLIPTIN 5 MG TABLET PO (08:42)
[2019-02-01] MEDS: Heparin Injection (Vial) 5,000 UNIT/ML VIAL 5000 UNIT SC ×2 (08:42→21:06)
--- NOTE | 2019-02-01 10:02 | NURSING ---
Student nurse charting reviewed.
--- NOTE | 2019-02-01 11:13 | PCM.PROGNOTE ---
Patient Problems: Active and Suspected Problems (Last Updated 08/05/18 @ 16:17 by Nayeli Young) Shortness of breath (Acute) Generalized weakness (Acute) Subjective: Patient seen and examined. Reports shortness of breath is improved. Continues to complain of generalized weakness although she feels this is improved as well. Denies other complaints. - Physical Exam General: Alert, Oriented x3, Cooperative HEENT: Atraumatic, PERRLA, EOMI, Normocephalic Oral: Moist Mucosa Neck: Supple, No JVD, Negative Carotid Bruits Lungs: Clear to auscultation, Diminished Cardiovascular: Regular rate, Regular Rhythm, Normal S1, Normal S2, No murmurs Abdomen: Bowel Sounds Present, Soft, Non Tender, Non-Distended Extremities: No clubbing, No cyanosis, No edema, Capillary Refill Less than 3 Seconds Skin: No rashes, No breakdown Musculoskeletal: No Tenderness to Palpation of Joints or Extremities Neurological: Cranial nerves II-XII grossly intact, Neuro grossly intact Psych/Mental Status: Normal Affect, Appropriate Vital Signs Temp Pulse Resp BP Pulse Ox 97.8 F 65 18 117/44 L 93 02/01/19 08:45 02/01/19 08:45 02/01/19 08:45 02/01/19 08:45 02/01/19 09:35 Oxygen Flow Rate (L/min) 4 Oxygen Delivery Method Nasal Cannula Weight: 113 lb 12.136 oz Body Mass Index (BMI) 21.9 Intake and Output for Last 24 Hours 01/30/19 01/31/19 02/01/19 23:59 23:59 23:59 Intake Total 240 / 240 240 / 240 Output Total 350 / 350 Balance 240 / 240 -110 / -110 Laboratory Tests Past 24 Hrs 01/31/19 01/31/19 01/31/19 19:48 19:48 19:48 WBC 7.8 RBC 6.25 H Hgb 18.8 H* Hct 58.0 H MCV 92.8 MCH 30.1 MCHC 32.4 RDW 16.0 H RDW Differential 53.9 H Plt Count 127 L MPV 11.3 Immature Gran % (Auto) 0.100 Neut % (Auto) 70.9 H Lymph % (Auto) 14.5 L [place] % (Auto) 12.8 H Eos % (Auto) 1.3 Baso % (Auto) 0.4 Absolute Neuts (auto) 5.6 Absolute Lymphs (auto) 1.14 Total Counted Not Reportable Specimen Type Sample Site pH Bicarbonate Actual POC Total CO2 Base Excess O2 Saturation ABG pCO2 ABG pO2 Patrick Test O2 Delivery Device Liter Flow Blood Gas Notified Whom Sodium 139 Potassium 3.0 L Chloride 99 Carbon Dioxide 31.0 Anion Gap 9 BUN 24 H Creatinine 1.44 H Estim Creat Clear Calc 25.05 Est GFR (MDRD) Af Amer 45 L Est GFR (MDRD) Non-Af 37 L BUN/Creatinine Ratio 16.7 Glucose 178 H Lactic Acid Cancelled Calcium 8.9 Troponin I 0.041 B-Natriuretic Peptide Urine Color Urine Clarity Urine pH Ur Specific [place] Urine Protein Urine Glucose (UA) Urine Ketones Urine Occult Blood Urine Nitrite Urine Bilirubin Urine Urobilinogen Ur Leukocyte Esterase Urine RBC Urine WBC Ur Squamous Epith Cells Urine Bacteria Urine Mucus 01/31/19 01/31/19 01/31/19 19:48 20:41 20:46 WBC RBC Hgb Hct MCV MCH MCHC RDW RDW Differential Plt Count MPV Immature Gran % (Auto) Neut % (Auto) Lymph % (Auto) [place] % (Auto) Eos % (Auto) Baso % (Auto) Absolute Neuts (auto) Absolute Lymphs (auto) Total Counted Specimen Type ART Sample Site L Radial pH 7.34 L Bicarbonate Actual 29.8 H POC Total CO2 31 Base Excess 4 H O2 Saturation 84 L ABG pCO2 55.4 H ABG pO2 52 L Patrick Test POS O2 Delivery Device Nasal Can Liter Flow 4.0 Blood Gas Notified Whom ED MD Sodium Potassium Chloride Carbon Dioxide Anion Gap BUN Creatinine Estim Creat Clear Calc Est GFR (MDRD) Af Amer Est GFR (MDRD) Non-Af BUN/Creatinine Ratio Glucose Lactic Acid Cancelled Calcium Troponin I B-Natriuretic Peptide 2261.6 H Urine Color Urine Clarity Urine pH Ur Specific [place] Urine Protein Urine Glucose (UA) Urine Ketones Urine Occult Blood Urine Nitrite Urine Bilirubin Urine Urobilinogen Ur Leukocyte Esterase Urine RBC Urine WBC Ur Squamous Epith Cells Urine Bacteria Urine Mucus 01/31/19 01/31/19 02/01/19 21:42 21:58 05:10 WBC RBC Hgb Hct MCV MCH MCHC RDW RDW Differential Plt Count MPV Immature Gran % (Auto) Neut % (Auto) Lymph % (Auto) [place] % (Auto) Eos % (Auto) Baso % (Auto) Absolute Neuts (auto) Absolute Lymphs (auto) Total Counted Specimen Type Sample Site pH Bicarbonate Actual POC Total CO2 Base Excess O2 Saturation ABG pCO2 ABG pO2 Patrick Test O2 Delivery Device Liter Flow Blood Gas Notified Whom Sodium 139 Potassium 3.4 L Chloride 100 Carbon Dioxide 31.0 Anion Gap 8 BUN 21 H Creatinine 1.38 H Estim Creat Clear Calc 26.14 Est GFR (MDRD) Af Amer 47 L Est GFR (MDRD) Non-Af 39 L BUN/Creatinine Ratio 15.2 Glucose 301 H Lactic Acid 1.4 Calcium 8.8 Troponin I B-Natriuretic Peptide Urine Color Yellow Urine Clarity Clear Urine pH 6.5 Ur Specific [place] 1.010 Urine Protein 100 H Urine Glucose (UA) 100 H Urine Ketones Negative Urine Occult Blood 150 H Urine Nitrite Negative Urine Bilirubin Negative Urine Urobilinogen Normal Ur Leukocyte Esterase Negative Urine RBC 0 SEEN Urine WBC 0-5 SEEN Ur Squamous Epith Cells 0-5 SEEN Urine Bacteria 0 SEEN Urine Mucus 0 SEEN 02/01/19 05:10 WBC 5.6 RBC 5.90 H Hgb 17.8 H Hct 55.3 H MCV 93.7 MCH 30.2 MCHC 32.2 RDW 15.9 H RDW Differential 53.2 H Plt Count 118 L MPV 11.1 Immature Gran % (Auto) 0.200 Neut % (Auto) 92.1 H Lymph % (Auto) 5.9 L [place] % (Auto) 1.8 Eos % (Auto) 0.0 Baso % (Auto) 0.0 Absolute Neuts (auto) 5.2 Absolute Lymphs (auto) 0.33 L Total Counted Not Reportable Specimen Type Sample Site pH Bicarbonate Actual POC Total CO2 Base Excess O2 Saturation ABG pCO2 ABG pO2 Patrick Test O2 Delivery Device Liter Flow Blood Gas Notified Whom Sodium Potassium Chloride Carbon Dioxide Anion Gap BUN Creatinine Estim Creat Clear Calc Est GFR (MDRD) Af Amer Est GFR (MDRD) Non-Af BUN/Creatinine Ratio Glucose Lactic Acid Calcium Troponin I B-Natriuretic Peptide Urine Color Urine Clarity Urine pH Ur Specific [place] Urine Protein Urine Glucose (UA) Urine Ketones Urine Occult Blood Urine Nitrite Urine Bilirubin Urine Urobilinogen Ur Leukocyte Esterase Urine RBC Urine WBC Ur Squamous Epith Cells Urine Bacteria Urine Mucus POC Glucose 02/01/19 06:47 POC Glucose 259 H Medical Necessity - Tobacco Use Smoking Status: Current every day smoker Tobacco Use: Cigarettes Assessment/Plan All Active Problems (Last Updated 08/05/18 @ 16:17 by Nayeli Young) Shortness of breath (Acute) Generalized weakness (Acute) History of myocardial infarction (Acute) Decreased stool caliber (Acute) Constipation (Acute) 1. Acute diastolic CHF-BNP 2261 on admission. Chest x-ray with central vascular congestion. Chest CT shows CHF with right lower lobe consolidation and effusion. Stable left lower lobe pleural-based nodularity. Echocardiogram June 2018 with EF 55%, RVSP estimated to be 71 mmHg. Unable to assess diastolic dysfunction. Continue IV Lasix 20 mg every 8. Repeat echocardiogram. [place]. 2. Acute on chronic hypoxic respiratory failure in the context of chronic COPD-no acute COPD exacerbation. Increased oxygen requirement secondary to #1. Continue supplement oxygen to maintain O2 at or above 90%. Pulmonary medicine consulted. 3. Acute kidney injury on chronic kidney disease stage II-improving, trend BMP. 4. Severe Pulmonary Hypertension- RVSP 71mmhg on echo 07/02/19. Will order repeat echo. 6. Mild hypokalemia-replace per protocol. Trend BMP. 7. Chronic polycythemia-secondary to #2/tobacco use. 8. Type 2 diabetes mellitus-continue home glipizide, Tradjenta regimen. Accu-Cheks ACHS with sliding scale insulin. 9. CAD status post PCI to RCA-continue aspirin, statin, Plavix. 10. Hypertension-stable, continue home losartan, metoprolol, Aldactone regimen. 11. Hyperlipidemia-continue statin. 12. Tobacco dependence-encouraged smoking cessation. Nicotine replacement patch if desired. 13. Generalized weakness- PT/OT eval. DVT prophylaxis-heparin subcu This patient was seen by [facility] Mon under the supervision of Dr. Bryan.
--- NOTE | 2019-02-01 11:32 | ECHOD_ITS ---
Reason For Study: CHF Procedure This was a 2D Doppler, Color Flow transthoracic echocardiogram. Did not use Definity due to increased PAP. The study was technically difficult. Exam performed portable in patient room. Left Ventricle Normal LV size. Left ventricular systolic function is normal. The estimated ejection fraction is 65 %. There is evidence of diastolic dysfunction. No regional wall motion abnormalities noted. Right Ventricle Moderately dilated right ventricle. Moderate global right ventricular systolic dysfunction. Atria The left atrium is mildly enlarged. The right atrium is moderately enlarged. No doppler evidence for ASD. Mitral Valve There is mild mitral annular calcification. Extension of the mitral annular calcification onto the posterior mitral valve leaflet. Trivial mitral valve insufficiency. Tricuspid Valve Normal tricuspid valve. Moderate (2+) tricuspid valve insufficiency. Right ventricular systolic pressure estimated to be 67 mmHg. Aortic Valve Trisinus/trileaflet aortic valve. Mild diffuse aortic valve thickening. Mild focal aortic valve calcification. Pulmonic Valve The pulmonic valve is not well visualized. Mild (1+) pulmonic valve insufficiency. Great Vessels Normal sized aortic root. Calcified aortic root. Pericardium/Pleural No pericardial effusion. MMode/2D Measurements & Calculations LVIDd: 3.1 cm IVSd: 1.6 cm Ao root diam: 2.8 cm LVIDs: 2.2 cm LVPWd: 1.1 cm RVDd: 5.2 cm FS: 29.2 % LAV(MOD-bp): 25.3 ml LVAd ap4: 14.0 cm2 SV(MOD-sp4): 14.9 ml LAV(MOD-bp) Indexed: 16.3 ml/m2 EDV(MOD-sp4): 27.7 ml LAV(MOD-sp2): 27.6 ml EDV(sp4-el): 29.6 ml LAV(MOD-sp4): 22.4 ml LVAs ap4: 8.6 cm2 ESV(MOD-sp4): 12.8 ml ESV(sp4-el): 13.0 ml EF(MOD-sp4): 53.8 % EF(sp4-el): 56.0 % SV(sp4-el): 16.6 ml LA A4 area: 11.3 cm2 LA dimension(2D): 3.9 cm RA A4 area: 23.5 cm2 Doppler Measurements & Calculations MV E max marco antonio: 66.9 cm/sec Lat Peak E' Marco Antonio: 4.4 cm/sec Med Peak E' Marco Antonio: 3.7 cm/sec MV A max marco antonio: 122.9 cm/sec E/E' lat: 15.2 E/E' med: 17.9 MV E/A: 0.54 Ao V2 max: 147.2 cm/sec LV V1 max: 109.5 cm/sec PA V2 max: 115.6 cm/sec Ao max P.7 mmHg LV V1 max P.8 mmHg Ao V2 mean: 104.2 cm/sec Ao mean P.8 mmHg Ao V2 VTI: 29.7 cm TR max marco antonio: 360.1 cm/sec TR max P.9 mmHg Interpretation Summary The study was technically difficult. Left ventricular systolic function is normal. The estimated ejection fraction is 65 %. Moderately dilated right ventricle. Moderate global right ventricular systolic dysfunction. The left atrium is mildly enlarged. The right atrium is moderately enlarged. There is mild mitral annular calcification. Extension of the mitral annular calcification onto the posterior mitral valve leaflet. Trivial mitral valve insufficiency. Moderate (2+) tricuspid valve insufficiency. Right ventricular systolic pressure estimated to be 67 mmHg. There is evidence of diastolic dysfunction. Ordering Physician: GRACY Mon Referring Physician: No Espinoza Performed By: Rosie Magallanes, STEPHANIE, RVT
[2019-02-01 11:45] LABS: Bedside Glucose 327 mg/dL (70-110)
--- NOTE | 2019-02-01 12:24 | CM.UR ---
RN CM Assessment Met face to face with patient for initial transition planning/care coordination assessment. Introduced myself and my role. Verb understanding and agreement for assessment. Presentation: Increasing weakness PCP: Dr. Espinoza Specialists: Dr. Dunne (cardio), Dr. Bart Martell (Derm). Preferred Pharmacy: [facility]: [facility] Insurance: [facility] w/AARP supplement Prescription Benefit: yes Home: mobile home w/3 steps railing on both sides. ADLs: Usually independent with ADLs. Currently plan is for her niece to stay with her until she gets her strength back. Transportation: drives self DME: Oxygen. Denies has any other DME. States can borrow from sister. States she does NOT have a nebulizer. Gets her o2 from [facility], [place]. Also stating that the portable oxygen is difficult for her to manage, carry as it is heavy. SNF/HHC: Denies ever having either. Passport/waiver clinic mgr: Denies Advance Directives: States has both. Daughter is DPOA: Aixa Cavazos. Requested copy is brought in. States she will ask daughter. DC PLAN: Home w/family staying with her. Jer Helton RN, CCM.
[2019-02-01 15:40] LABS: AST(SGOT) 26 U/L (15-37); Alanine Aminotransfer ALT/SGPT 22 U/L (13-56); Albumin, Serum 2.8 g/dL (3.2-5.0); Alkaline Phosphatase 99 U/L (45-117); Bilirubin, Direct 0.15 mg/dL (0.00-0.30); Globulin 3.6 g/dL (2.2-4.2); Magnesium 2.1 mg/dL (1.6-2.6); Phosphorus 3.1 mg/dL (2.5-4.9); Protein, Total 6.4 g/dL (6.4-8.2)
[2019-02-01 16:20] LABS: Bedside Glucose 253 mg/dL (70-110)
[2019-02-01] MEDS: Atorvastatin Calcium 80 MG Tablet PO (21:07)
[2019-02-01 22:26] LABS: Bedside Glucose 142 mg/dL (70-110)
[2019-02-02] VITALS (15 sets, daily range): BP systolic 116–138; BP diastolic 62–73; PULSE 67–86; RESP 14–20; TEMP 36.7–36.8; O2SAT 87–93
[2019-02-02] MEDS: 0.9% NaCl Peripheral Flush Adult/Peds IV (05:53)
[2019-02-02] MEDS: Furosemide 20 MG/2 ML VIAL IV ×2 (05:55→16:06)
[2019-02-02 06:00] LABS: Hematocrit 52.8 % (37-47); Hemoglobin 13.8 g/dl (12.0-15.0); Mean Corp Hgb Conc 26.1 g/gl (32-36); Mean Corpuscular Hgb 24.4 pg (27.0-32.0); Mean Corpuscular Volume 93.5 fL (81-99); Mean Platelet Vol. 11.4 fl (6.2-12.0); Platelet Count 127 K/mm3 (150-450); RBC Distribution Width CV 15.8 % (11.6-14.6); RBC Distribution Width SD 52.5 fl (35.1-43.9); Red Blood Count 5.65 M/mm3 (4.2-5.4); White Blood Count 10.7 K/mm3 (4.4-11.0)
[2019-02-02 06:06] LABS: Scan Indicated on CBC? Y/N NO
--- NOTE | 2019-02-02 06:07 | CON.PCM_ITS ---
Reason for Consult Date of Consultation: 02/02/19 Reason for Consultation: Acute on chronic respiratory failure History of Present Illness: The patient is a 79-year-old female, with a history as outlined below, who presented to the emergency department on January 31 with complaints of generalized weakness and shortness of breath. The patient has self-reported COPD of unknown severity. She states that she utilizes 2 L/min of supplemental oxygen at her baseline. She has never been evaluated by a theatre instructor, nor has she ever undergone pulmonary function testing. The patient has a 50+ pack year smoking history and continues to smoke approximately 0.5 packs of cigarettes daily. She does not routinely utilize any inhalers at her baseline. On presentation to the emergency department, the patient was noted to be afebrile and hemodynamically stable. She was initially documented to be saturating 78% on room air. Laboratory evaluation revealed a normal white blood cell count. However, the patient did have an elevated hemoglobin to 19 with a hematocrit of 58. Chemistry profile was notable for a potassium of 3.0, along with evidence of acute kidney injury with a creatinine of 1.4. Lactate was within normal limits. Troponin was negative. BNP was elevated to 2261. Plain film chest x-ray initially demonstrated mild cardiomegaly with central vascular congestion. The patient received aerosol treatments along with IV Solu-Medrol and Lasix. She was subsequently admitted to the progressive care unit for ongoing management. Since her admission, the patient has been maintained on scheduled bronchodilators and diuretic therapy. A CT chest obtained on February 01 revealed some pulmonary vascular congestion along with what appears to be a right lower lobe consolidation and associated effusion. Surface echocardiogram revealed normal LV size and function with an ejection fraction of 65%. The RV was moderately dilated with moderate global RV systolic dysfunction. Right ventricular systolic pressure was estimated to be 67 mmHg. There was evidence of diastolic dysfunction. Past Medical History Past Medical History (Chronic Problems): Chronic Problems (Last Updated 08/05/18 @ 16:17 by Nayeli Young) Tobacco abuse (Chronic) Essential hypertension (Chronic) Atherosclerotic heart disease of [place] coronary artery without angina pectoris (Chronic) Presence of stent in coronary artery (Chronic ~03/2002) PTCA/Stent of RCA 03/2002 COPD (chronic obstructive pulmonary disease) (Chronic) Chronic back pain (Chronic) Hyperlipidemia (Chronic) Diabetes mellitus, type II (Chronic) Medical History: Medical History (Last Updated 08/05/18 @ 16:17 by Nayeli Young) History of myocardial infarction (Acute) I25.2 Essential hypertension (Chronic) I10 Atherosclerotic heart disease of [place] coronary artery without angina pectoris (Chronic) I25.10 Decreased stool caliber (Acute) R19.5 Constipation (Acute) K59.00 COPD (chronic obstructive pulmonary disease) (Chronic) J44.9 Chronic back pain (Chronic) M54.9, G89.29 Hyperlipidemia (Chronic) E78.5 Diabetes mellitus, type II (Chronic) E11.9 History of hysterectomy Z90.710 Peripheral vascular disease I73.9 TIA (transient ischemic attack) G45.9 Allergies Sulfa (Sulfonamide Antibiotics) Allergy (Verified 01/31/19 19:04) Nausea/Vom/Diarrhea acetaminophen [From Vicodin] Adverse Reaction (Verified 01/31/19 19:04) Other hydrocodone bitartrate [From Vicodin] Adverse Reaction (Verified 01/31/19 19:04) Other Home Medications: Ambulatory Orders Medication Instructions Recorded Aspirin [Aspirin, Baby] 81 mg PO DAILY@0800 04/30/15 Clopidogrel Bisulfate [Plavix] 75 mg PO DAILY 04/30/15 Folic Acid 0.8 mg PO DAILY@0800 04/30/15 Losartan Potassium [Cozaar] 100 mg PO DAILY 04/30/15 Nitroglycerin [Nitrostat] 0.4 mg SUBLINGUAL Q5M PRN 04/30/15 [place]-3 Fatty Acids [Fish Oil] 300 mg PO DAILY 04/30/15 Rosuvastatin Calcium [Crestor] 40 mg PO DAILY 04/30/15 glipiZIDE [Glucotrol] 10 mg PO BID 04/30/15 Metformin HCl [Glucophage] 1,000 mg PO BID #1 tab 05/02/15 Sitagliptin Phosphate [Januvia] 100 mg PO DAILY 02/19/17 metoprolol succinate ER 100 mg 50 mg PO DAILY tab 04/29/18 tablet,extended release 24 hr spironolactone 25 mg tablet 12.5 mg PO DAILY #45 tab 01/02/19 Surgical History: Surgical History (Last Updated 08/05/18 @ 16:17 by Nayeli Young) Presence of stent in coronary artery (Chronic) Onset Date: ~03/2002 Z95.5 PTCA/Stent of RCA 03/2002 History of breast biopsy Z98.890 History of cholecystectomy Z90.49 History of heart artery stent Z95.5 Postsurgical percutaneous transluminal coronary angioplasty (PTCA) status Onset Date: ~03/2002 Z98.61 PTCA/Stent of RCA 03/2002 Surgical History: cataract, hysterectomy, - - Coronary artery stent placement Psychiatric History: Anxiety 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 pertinent 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 IMPROVEMENT SPECIALIST history Lives: Alone Smoking Status: Current every day smoker Tobacco Use: Cigarettes Alcohol: None Drugs: None - *Family History Maternal Family History: Family History (Last Updated 08/05/18 @ 16:19 by Nayeli Young) Mother CAD (coronary artery disease) Myocardial infarction, Onset Age: 50 Diabetes Sister CAD (coronary artery disease) History of coronary artery bypass surgery Sister CAD (coronary artery disease) Sister History of coronary artery bypass surgery Other CVA (cerebral vascular accident) Cancer Hypertension History Items: Diabetes Paternal Family History: Family History (Last Updated 08/05/18 @ 16:19 by Nayeli Young) Mother CAD (coronary artery disease) Myocardial infarction, Onset Age: 50 Diabetes Sister CAD (coronary artery disease) History of coronary artery bypass surgery Sister CAD (coronary artery disease) Sister History of coronary artery bypass surgery Other CVA (cerebral vascular accident) Cancer Hypertension History Items: Cancer - Father w/ prostate CA. Review of Systems Constitutional: Reports: Weakness, Fatigue Eyes: Denies: Blurred vision, Double vision HEENT: Denies: Head Aches, Sinus Congestion, Sinus Drainage Cardiovascular: Denies: Chest Pain, Palpitations Respiratory: Reports: Cough, Shortness of Breath, Sputum production Gastrointestinal: Denies: Abdominal Pain, Nausea, Vomiting Genitourinary: Denies: Dysuria Musculoskeletal: Denies: Joint Pain, Joint Tenderness Skin: Denies: Rash, Wounds Neurological: Denies: Numbness, Tingling, Focal weakness Psychiatric: Denies: Anxiety, Depression, Homicidal Ideations, Suicidal Ideations Hematologic/ Lymphatic: Denies: Easy Bruising, Easy Bleeding Patient Problems: Active and Suspected Problems (Last Updated 08/05/18 @ 16:17 by Nayeli Young) Shortness of breath (Acute) Generalized weakness (Acute) Objective: The patient's most recent lab work, culture data and imaging studies have all been personally reviewed. - Physical Exam General: Alert, Oriented x3, Cooperative, No apparent distress HEENT: Atraumatic, PERRLA, Normocephalic Oral: No Gingival or Mucosal Lesions/ Ulcerations Neck: Supple, No Nodes, No Nuchal Rigidity, Trachea Midline Lungs: - - Globally diminished air movement throughout all lung sheldon without appreciable wheezes, rales or rhonchi. Increased AP diameter. Cardiovascular: Regular rate, Regular Rhythm, Normal S1, Normal S2, No murmurs Abdomen: Bowel Sounds Present, Soft, Non Tender Extremities: No cyanosis, Clubbing, Edema Skin: No breakdown Musculoskeletal: No Tenderness to Palpation of Joints or Extremities Lymphatic: No Cervical, Supraclavicular, or Inguinal Adenopathy Neurological: Cranial nerves II-XII grossly intact, Neuro grossly intact Psych/Mental Status: Normal Affect, Appropriate Vital Signs Temp Pulse Resp BP Pulse Ox 36.7 C 75 20 H 138/62 H 92 02/02/19 02:56 02/02/19 03:08 02/02/19 02:56 02/02/19 02:56 02/02/19 02:56 Oxygen Flow Rate (L/min) 3 Oxygen Delivery Method Nasal Cannula Weight: 113 lb 12.136 oz Body Mass Index (BMI) 21.9 Intake and Output for Last 24 Hours 01/31/19 02/01/19 02/02/19 23:59 23:59 23:59 Intake Total 240 / 240 1715 / 1715 350 / 350 Output Total 3425 / 3425 1475 / 1475 Balance 240 / 240 -1710 / -1710 -1125 / -1125 Microbiology Past 72 Hours 02/01/19 16:15 Influenza Types A,B Direct FA (ZONIA) - Final Mucosa - Nasopharyngeal Laboratory Tests Past 24 Hrs 02/01/19 02/01/19 02/02/19 05:00 05:10 05:10 WBC Pending RBC Pending Hgb Pending Hct Pending MCV Pending MCH Pending MCHC Pending RDW Pending RDW Differential Pending Plt Count Pending Total Counted Not Reportable Sodium Potassium Chloride Carbon Dioxide Anion Gap BUN Creatinine Est GFR (MDRD) Af Amer Est GFR (MDRD) Non-Af BUN/Creatinine Ratio Glucose Calcium Phosphorus 3.1 Magnesium 2.1 Total Bilirubin 0.50 Direct Bilirubin 0.15 AST 26 ALT 22 Alkaline Phosphatase 99 Total Protein 6.4 Albumin 2.8 L Globulin 3.6 02/02/19 05:10 WBC RBC Hgb Hct MCV MCH MCHC RDW RDW Differential Plt Count Total Counted Sodium Pending Potassium Pending Chloride Pending Carbon Dioxide Pending Anion Gap Pending BUN Pending Creatinine Pending Est GFR (MDRD) Af Amer Pending Est GFR (MDRD) Non-Af Pending BUN/Creatinine Ratio Pending Glucose Pending Calcium Pending Phosphorus Magnesium Total Bilirubin Direct Bilirubin AST ALT Alkaline Phosphatase Total Protein Albumin Globulin POC Glucose 02/01/19 02/01/19 02/01/19 21:05 16:12 11:14 POC Glucose 142 H 253 H 327 H 02/01/19 06:47 POC Glucose 259 H Clinical Impression(s) from Imaging Studies Chest X-Ray 01/31/19 19:50 IMPRESSION: Mild cardiomegaly with central vascular congestion. No chronic interstitial lung disease Electronically Signed: Raymon Kincaid MD at 21:47 EDT Tel , Service support , Chest CT 02/01/19 05:55 IMPRESSION: CHF with right lower lobe consolidation and effusion. Cardiomegaly. Stable left lower lobe pleural-based nodularity. Electronically Signed: Timothy Casanova DO at 8:19 EDT Tel , Service support , Assessment/Plan All Active Problems (Last Updated 08/05/18 @ 16:17 by Nayeli Young) Shortness of breath (Acute) Generalized weakness (Acute) History of myocardial infarction (Acute) Decreased stool caliber (Acute) Constipation (Acute) RECOMMENDATIONS: 1. Continue bronchodilators and IV diuretics. 2. Start Levaquin empirically. 3. Nicotine replacement therapy can be offered to the patient. 4. Electrolyte repletion as indicated. 5. Wean supplemental oxygen to maintain saturations 88-92%. 6. Perform walking oximetry study prior to consideration for discharge from the hospital. 7. Smoking cessation and outpatient pulmonary follow-up was strongly recommended. IMPRESSIONS: 1. Acute on chronic combined respiratory failure The patient presented to the hospital with what appears to be a component of decompensated heart failure along with significant pulmonary hypertension and evidence of a right basilar infiltrate. Sputum culture is currently pending. In the interim, recommend starting Levaquin. Continue scheduled bronchodilators and IV diuretic therapy. The patient's echocardiogram did reveal right-sided systolic dysfunction along with evidence of diastolic dysfunction and pulmonary hypertension. Given the patient's extensive smoking history, I strongly suspect that she has underlying advanced age obstructive lung disease. However, this would require outpatient pulmonary follow-up and PFTs for further quantification. I would continue to wean her supplemental oxygen to maintain saturations at or above 88%. 2. Severe pulmonary hypertension with cor pulmonale I strongly suspect that the patient has underlying obstructive lung disease and despite being on 2 L/min of supplemental oxygen at her baseline is still hypoxic. Continue current supportive measures including diuretic therapy and supplemental oxygen. She would certainly benefit from outpatient pulmonary follow-up and pulmonary function testing. 3. Polycythemia Suspect secondary to long-standing hypoxemia. 4. Hypokalemia Electrolyte repletion as ordered. 5. Hypertension/hyperlipidemia/diabetes mellitus/continuous tobacco dependency Complicates care, management, recovery and prognosis. Smoking cessation is strongly advisable. Nicotine replacement therapy can be offered while the patient is admitted to the hospital. This note was generated with [employer] dictation software. It may contain incorrect words, spelling, and punctuation that were not noted in checking the note before signing. Code Visit Inpatient E&M: 55920 Init Hosp L3
[2019-02-02 06:09] LABS: Anion Gap 7 (5-15); BUN 24 mg/dL (7-18); BUN/Creat Ratio 17.3 RATIO (10-20); Calcium,Total 9.1 mg/dL (8.5-10.1); Chloride 93 mmol/L (98-107); Creatinine, Serum 1.39 mg/dL (0.55-1.02); EST Glomerular Filtration Rate 39 mL/min (>60); Est Glom Filt Rate - Afr Amer 47 mL/min (>60); Estimated Creatinine Clearance 25.96 ml/min; Glucose 126 mg/dL (74-106); Potassium 3.1 mmol/L (3.5-5.1); Sodium Level 135 mmol/L (136-145)
[2019-02-02] MEDS: Ipratropium/Albuterol Sulfate 3 ML AMPUL.NEB INHALATION ×3 (06:31→19:28)
[2019-02-02 07:05] LABS: Bedside Glucose 141 mg/dL (70-110)
[2019-02-02] MEDS: Losartan Potassium 100 MG Tablet PO (08:36)
[2019-02-02] MEDS: Aspirin 81 MG TAB.CHEW PO (08:36)
[2019-02-02] MEDS: Spironolactone 25 MG Tablet 12.5 MG PO (08:36)
[2019-02-02] MEDS: Heparin Injection (Vial) 5,000 UNIT/ML VIAL 5000 UNIT SC ×2 (08:36→21:14)
[2019-02-02] MEDS: Folic Acid 1 MG Tablet PO (08:36)
[2019-02-02] MEDS: glipiZIDE 10 MG Tablet PO ×2 (08:36→16:05)
[2019-02-02] MEDS: LINAGLIPTIN 5 MG TABLET PO (08:37)
[2019-02-02] MEDS: Metoprolol(XL)Succ 50 MG Tablet PO (08:37)
[2019-02-02] MEDS: Clopidogrel Bisulfate 75 MG Tablet PO (08:37)
[2019-02-02] MEDS: levoFLOXacin IV 500 MG/100 ML BAG 100 MG IV (10:01)
[2019-02-02] MEDS: Insulin Lispro 100 UNIT/ML INSULN.PEN SC ×3 (11:08→21:14)
[2019-02-02 11:16] LABS: Bedside Glucose 265 mg/dL (70-110)
--- NOTE | 2019-02-02 12:25 | PN_ITS ---
Patient Problems: Active and Suspected Problems (Last Updated 08/05/18 @ 16:17 by Nayeli Young) Shortness of breath (Acute) Generalized weakness (Acute) Subjective: Patient seen and examined. Reports continued improvement in breathing. Denies other current complaints. - Physical Exam General: Alert, Oriented x3, Cooperative HEENT: Atraumatic, PERRLA, EOMI, Normocephalic Oral: Moist Mucosa Neck: Supple, No JVD, Negative Carotid Bruits Lungs: Clear to auscultation, Diminished Cardiovascular: Regular rate, Regular Rhythm, Normal S1, Normal S2, No murmurs Abdomen: Bowel Sounds Present, Soft, Non Tender, Non-Distended Extremities: No clubbing, No cyanosis, Clubbing, Edema - Nonpitting bilateral lower extremities Skin: No rashes, No breakdown Musculoskeletal: No Tenderness to Palpation of Joints or Extremities Neurological: Cranial nerves II-XII grossly intact, Neuro grossly intact Psych/Mental Status: Normal Affect, Appropriate Vital Signs Temp Pulse Resp BP Pulse Ox 98.2 F 80 14 134/73 H 93 02/02/19 09:00 02/02/19 11:00 02/02/19 09:00 02/02/19 09:00 02/02/19 09:00 Oxygen Flow Rate (L/min) 3 Oxygen Delivery Method Nasal Cannula Weight: 117 lb 4.575 oz Body Mass Index (BMI) 21.9 Intake and Output for Last 24 Hours 01/31/19 02/01/19 02/02/19 23:59 23:59 23:59 Intake Total 240 / 240 1715 / 1715 938 / 938 Output Total 3425 / 3425 2385 / 2385 Balance 240 / 240 -1710 / -1710 -1447 / -1447 Microbiology Past 72 Hours 02/01/19 16:15 Respiratory Panel (PCR) - Final Mucosa - Nose 02/01/19 16:15 Influenza Types A,B Direct FA (ZONIA) - Final Mucosa - Nasopharyngeal Laboratory Tests Past 24 Hrs 02/01/19 02/02/19 02/02/19 05:00 05:10 05:10 WBC 10.7 RBC 5.65 H Hgb 13.8 Hct 52.8 H MCV 93.5 MCH 24.4 L MCHC 26.1 L RDW 15.8 H RDW Differential 52.5 H Plt Count 127 L MPV 11.4 Sodium 135 L Potassium 3.1 L Chloride 93 L Carbon Dioxide 35.0 H Anion Gap 7 BUN 24 H Creatinine 1.39 H Estim Creat Clear Calc 25.96 Est GFR (MDRD) Af Amer 47 L Est GFR (MDRD) Non-Af 39 L BUN/Creatinine Ratio 17.3 Glucose 126 H Calcium 9.1 Phosphorus 3.1 Magnesium 2.1 Total Bilirubin 0.50 Direct Bilirubin 0.15 AST 26 ALT 22 Alkaline Phosphatase 99 Total Protein 6.4 Albumin 2.8 L Globulin 3.6 POC Glucose 02/02/19 02/02/19 02/01/19 11:06 07:01 21:05 POC Glucose 265 H 141 H 142 H 02/01/19 16:12 POC Glucose 253 H Medical Necessity - Tobacco Use Smoking Status: Current every day smoker Tobacco Use: Cigarettes Assessment/Plan All Active Problems (Last Updated 08/05/18 @ 16:17 by Nayeli Young) Shortness of breath (Acute) Generalized weakness (Acute) History of myocardial infarction (Acute) Decreased stool caliber (Acute) Constipation (Acute) 1. Acute diastolic CHF-BNP 2261 on admission. Chest x-ray with central vascular congestion. Chest CT shows CHF with right lower lobe consolidation and effusion. Stable left lower lobe pleural-based nodularity. Echocardiogram June 2018 with EF 55%, RVSP estimated to be 71 mmHg. Unable to assess diastolic dysfunction. Continue IV Lasix 20 mg every 8. Repeat echocardiogram shows an EF of 65%, moderate global right ventricular systolic dysfunction, moderate tricuspid valve insufficiency, RVSP estimated to be 67 mmHg. ZEE san. Repeat chest x-ray in a.m. 2. Acute on chronic combined hypoxic and hypercapnic respiratory failure in the context of chronic COPD-suspect increased oxygen requirement secondary to #1. Continue supplement oxygen to maintain O2 at or above 90%. Pulmonary medicine consulted. Patient does have continued cough, sputum culture pending. IV Levaquin initiated empirically pending culture. No wheezing on assessment, do not feel steroids are necessary at this time. Recommend establishing with pulmonary medicine as outpatient for pulmonary function testing. 3. Acute kidney injury on chronic kidney disease stage II-stable, trend BMP. 4. Severe Pulmonary Hypertension- RVSP 71mmhg on echo 07/02/19. Repeat echo with RVSP 67 mmHg as noted above. 6. Mild hypokalemia-replace per protocol. Trend BMP. 7. Chronic polycythemia-secondary to chronic hypoxia. 8. Type 2 diabetes mellitus-continue home glipizide, Tradjenta regimen. Accu- Cheks ACHS with sliding scale insulin. 9. CAD status post PCI to RCA-continue aspirin, statin, Plavix. 10. Hypertension-stable, continue home losartan, metoprolol, Aldactone regimen. 11. Hyperlipidemia-continue statin. 12. Tobacco dependence-encouraged smoking cessation. Nicotine replacement patch if desired. 13. Generalized weakness- PT/OT eval. DVT prophylaxis-heparin subcu This patient was seen by GRACY Mon under the supervision of Dr. Bryan.
[2019-02-02 16:16] LABS: Bedside Glucose 166 mg/dL (70-110)
[2019-02-02] MEDS: Pantoprazole Sodium 40 MG Tablet PO (16:33)
[2019-02-02] MEDS: Atorvastatin Calcium 80 MG Tablet PO (21:14)
[2019-02-02 22:50] LABS: Bedside Glucose 238 mg/dL (70-110)
[2019-02-03] VITALS (8 sets, daily range): BP systolic 109–118; BP diastolic 55–61; PULSE 67–87; RESP 16–20; TEMP 35.8–36.9; O2SAT 86–98
--- NOTE | 2019-02-03 05:55 | RAD_ITS ---
STUDY: X-RAY CHEST REASON FOR EXAM: Female, 79 years old. History of congestive heart failure. TECHNIQUE: PA and lateral views of the chest. COMPARISON: Comparison is made with prior examination dated January 31, 2019. FINDINGS: EKG electrodes are seen. There now is evidence of a improvement expansion of both lungs. Stable increased interstitial markings in both lungs worse in the left lower lobe with blunting of the left costo phrenic angle. Findings are suggestive of chronic interstitial fibrosis with superimposed vascular congestion. There is borderline cardiomegaly. Normal mediastinum and mellissa. Normal visualized pulmonary arteries. There is atherosclerotic calcification of the aortic arch with tortuosity. There are diffuse degenerative changes of the visualized thoracic spine. Increased kyphosis. Normal visualized ribs, clavicles, and shoulders. There is no demonstrated abnormality of the visualized soft tissue structures of the upper abdomen. RAD/Chest PA and Lateral IMPRESSION: Chronic interstitial fibrosis worse in the left lower lobe with a mild degree of superimposed CHF. Has been mild improvement as compared to prior study. Electronically Signed: Vel David, at 15:52 EDT , Service support ,
[2019-02-03 06:07] LABS: Anion Gap 7 (5-15); BUN 24 mg/dL (7-18); BUN/Creat Ratio 17.6 RATIO (10-20); Calcium,Total 9.1 mg/dL (8.5-10.1); Chloride 94 mmol/L (98-107); Creatinine, Serum 1.36 mg/dL (0.55-1.02); EST Glomerular Filtration Rate 40 mL/min (>60); Est Glom Filt Rate - Afr Amer 48 mL/min (>60); Estimated Creatinine Clearance 26.53 ml/min; Glucose 78 mg/dL (74-106); Potassium 4.1 mmol/L (3.5-5.1); Sodium Level 131 mmol/L (136-145)
[2019-02-03 07:20] LABS: Bedside Glucose 91 mg/dL (70-110)
[2019-02-03] MEDS: glipiZIDE 10 MG Tablet PO (07:48)
[2019-02-03] MEDS: Aspirin 81 MG TAB.CHEW PO (07:49)
[2019-02-03] MEDS: Folic Acid 1 MG Tablet PO (07:49)
[2019-02-03] MEDS: Spironolactone 25 MG Tablet 12.5 MG PO (07:50)
[2019-02-03] MEDS: Losartan Potassium 100 MG Tablet PO (07:51)
[2019-02-03] MEDS: Heparin Injection (Vial) 5,000 UNIT/ML VIAL 5000 UNIT SC (07:51)
[2019-02-03] MEDS: Clopidogrel Bisulfate 75 MG Tablet PO (07:52)
[2019-02-03] MEDS: Furosemide 20 MG/2 ML VIAL IV (07:52)
[2019-02-03] MEDS: Pantoprazole Sodium 40 MG Tablet PO (07:52)
[2019-02-03] MEDS: Metoprolol(XL)Succ 50 MG Tablet PO (07:52)
[2019-02-03] MEDS: LINAGLIPTIN 5 MG TABLET PO (07:53)
[2019-02-03] MEDS: levoFLOXacin IV 250 MG/50 ML BAG 50 MG IV (08:02)
--- NOTE | 2019-02-03 11:05 | PCM.DC ---
- Discharge Diagnoses Current Active Problems: Current Active and Chronic Problems (Last Updated 08/05/18 @ 16:17 by Nayeli Young) 1. Acute diastolic CHF 2. Acute on chronic combined hypoxic and hypercapnic respiratory failure in the context of chronic COPD and right lower lobe community-acquired pneumonia You will use the following diet at home:: Cardiac Discharge Activity: Return to Normal Activity Call your doctor if you observe: Shortness of breath, Dizziness, Fainting spells, Chest pain Allergies/Adverse Reactions: Allergies Sulfa (Sulfonamide Antibiotics) Allergy (Verified 01/31/19 19:04) Nausea/Vom/Diarrhea acetaminophen [From Vicodin] Adverse Reaction (Verified 01/31/19 19:04) Other hydrocodone bitartrate [From Vicodin] Adverse Reaction (Verified 01/31/19 19:04) Other Medications to take at Discharge Aspirin [Aspirin, Baby] 81 mg PO DAILY@0800 04/30/15 Clopidogrel Bisulfate [Plavix] 75 mg PO DAILY 04/30/15 Folic Acid 0.8 mg PO DAILY@0800 04/30/15 Losartan Potassium [Cozaar] 100 mg PO DAILY 04/30/15 Nitroglycerin [Nitrostat] 0.4 mg SUBLINGUAL Q5M PRN 04/30/15 [place]-3 Fatty Acids [Fish Oil] 300 mg PO DAILY 04/30/15 Rosuvastatin Calcium [Crestor] 40 mg PO DAILY 04/30/15 glipiZIDE [Glucotrol] 10 mg PO BID 04/30/15 Metformin HCl [Glucophage] 1,000 mg PO BID #1 tab 05/02/15 Sitagliptin Phosphate [Januvia] 100 mg PO DAILY 02/19/17 metoprolol succinate ER 100 mg tablet,extended release 24 hr 50 mg PO DAILY tab 04/29/18 spironolactone 25 mg tablet 12.5 mg PO DAILY #45 tab 01/02/19 Levofloxacin [Levaquin] 750 mg PO Q48H #3 tablet 02/03/19 Pantoprazole Sodium [Protonix] 40 mg PO DAILY #30 tablet 02/03/19 The following prescriptions were given: Levofloxacin [Levaquin] 750 mg PO Q48H #3 tablet Pantoprazole Sodium [Protonix] 40 mg PO DAILY #30 tablet Primary Care Physician: No Espinoza DO [Primary Care Provider] - Please follow up with your Primary Care Physician in: 1 Week Test Results: Test results from this visit will be discussed in further detail at your follow-up appointment, if applicable. Please Follow Up With: Perico Dunne MD - May see PA/COMMERCIAL ILLUSTRATOR When: 2-3 Weeks Please Follow Up With: Gt Sherwood DO When: Recommend follow up with pulmonary medicine in 1-2 Weeks Proposed Discharge Date: 02/03/19
--- NOTE | 2019-02-03 11:08 | DCINST_ITS ---
- Discharge Diagnoses Current Active Problems: Current Active and Chronic Problems (Last Updated 08/05/18 @ 16:17 by Nayeli Young) 1. Acute diastolic CHF 2. Acute on chronic combined hypoxic and hypercapnic respiratory failure in the context of chronic COPD and right lower lobe community-acquired pneumonia You will use the following diet at home:: Cardiac Discharge Activity: Return to Normal Activity Call your doctor if you observe: Shortness of breath, Dizziness, Fainting spells, Chest pain Allergies/Adverse Reactions: Allergies Sulfa (Sulfonamide Antibiotics) Allergy (Verified 01/31/19 19:04) Nausea/Vom/Diarrhea acetaminophen [From Vicodin] Adverse Reaction (Verified 01/31/19 19:04) Other hydrocodone bitartrate [From Vicodin] Adverse Reaction (Verified 01/31/19 19:04) Other Medications to take at Discharge Aspirin [Aspirin, Baby] 81 mg PO DAILY@0800 04/30/15 Clopidogrel Bisulfate [Plavix] 75 mg PO DAILY 04/30/15 Folic Acid 0.8 mg PO DAILY@0800 04/30/15 Losartan Potassium [Cozaar] 100 mg PO DAILY 04/30/15 Nitroglycerin [Nitrostat] 0.4 mg SUBLINGUAL Q5M PRN 04/30/15 [place]-3 Fatty Acids [Fish Oil] 300 mg PO DAILY 04/30/15 Rosuvastatin Calcium [Crestor] 40 mg PO DAILY 04/30/15 glipiZIDE [Glucotrol] 10 mg PO BID 04/30/15 Metformin HCl [Glucophage] 1,000 mg PO BID #1 tab 05/02/15 Sitagliptin Phosphate [Januvia] 100 mg PO DAILY 02/19/17 metoprolol succinate ER 100 mg tablet,extended release 24 hr 50 mg PO DAILY tab 04/29/18 spironolactone 25 mg tablet 12.5 mg PO DAILY #45 tab 01/02/19 Levofloxacin [Levaquin] 750 mg PO Q48H #3 tablet 02/03/19 Pantoprazole Sodium [Protonix] 40 mg PO DAILY #30 tablet 02/03/19 The following prescriptions were given: Levofloxacin [Levaquin] 750 mg PO Q48H #3 tablet Pantoprazole Sodium [Protonix] 40 mg PO DAILY #30 tablet Primary Care Physician: No Espinoza DO [Primary Care Provider] - Please follow up with your Primary Care Physician in: 1 Week Test Results: Test results from this visit will be discussed in further detail at your follow- up appointment, if applicable. Please Follow Up With: Perico Dunne MD - May see PA/FLUXER When: 2-3 Weeks Please Follow Up With: Gt Sherwood DO When: Recommend follow up with pulmonary medicine in 1-2 Weeks Proposed Discharge Date: 02/03/19
--- NOTE | 2019-02-03 11:11 | PCM.DC.SUM ---
<Rhonda Hamlin - Last Filed: 02/03/19 11:23> Discharge Date and Diagnosis Date of Admission: 01/31/19 Date of Discharge: 02/03/19 - Primary Discharge Diagnosis Active and Suspected Problems (Last Updated 08/05/18 @ 16:17 by Nayeli Young) 1. Acute diastolic CHF 2. Acute on chronic combined hypoxic and hypercapnic respiratory failure in the context of chronic COPD and suspected right lower lobe community acquired pneumonia 3. Acute kidney injury on chronic kidney disease stage II 4. Severe Pulmonary Hypertension with cor pulmonale 6. Mild hypokalemia 7. Chronic polycythemia 8. Type 2 diabetes mellitus 9. CAD status post PCI to RCA 10. Hypertension 11. Hyperlipidemia 12. Tobacco dependence 13. Generalized weakness - Secondary Discharge Diagnosis Chronic Problems (Last Updated 08/05/18 @ 16:17 by Nayeli Young) Tobacco abuse (Chronic) Essential hypertension (Chronic) Atherosclerotic heart disease of [place] coronary artery without angina pectoris (Chronic) Presence of stent in coronary artery (Chronic ~03/2002) PTCA/Stent of RCA 03/2002 COPD (chronic obstructive pulmonary disease) (Chronic) Chronic back pain (Chronic) Hyperlipidemia (Chronic) Diabetes mellitus, type II (Chronic) Hospital Course and Treatment Imaging Results: Diagnostic Data Chest CT 02/01/19 05:55 IMPRESSION: CHF with right lower lobe consolidation and effusion. Cardiomegaly. Stable left lower lobe pleural-based nodularity. Electronically Signed: Timothy Casanova DO at 8:19 EDT Tel , Service support , Dr. Sherwood- Pulmonary Medicine Operations: None Procedures: 2-D Echocardiogram Summary of Care Provided: The patient is a 79 year old F admitted 01/31/2018 due to shortness of breath. 1. Acute diastolic CHF-BNP 2261 on admission. Chest x-ray with central vascular congestion. Chest CT shows CHF with right lower lobe consolidation and effusion. Stable left lower lobe pleural-based nodularity. Echocardiogram June 2018 with EF 55%, RVSP estimated to be 71 mmHg. Unable to assess diastolic dysfunction. Continue IV Lasix 20 mg every 8. Repeat echocardiogram shows an EF of 65%, moderate global right ventricular systolic dysfunction, moderate tricuspid valve insufficiency, RVSP estimated to be 67 mmHg. Continue ZEE hose at discharge. Follow-up with primary care physician in 1 week. Continue follow-up with cardiology as scheduled. 2. Acute on chronic combined hypoxic and hypercapnic respiratory failure in the context of chronic COPD and suspected right lower lobe community-acquired pneumonia-suspect increased oxygen requirement mostly secondary to #1. Continue supplement oxygen to maintain O2 at or above 90%. Pulmonary medicine consulted. IV Levaquin initiated empirically pending culture. Sputum culture showing 3+ gram-positive cocci and 2+ gram-negative cocci. Continue oral Levaquin 750 mg every 48 hours x3 doses at discharge. Patient has been afebrile with no leukocytosis. Recommend establishing with pulmonary medicine as outpatient for pulmonary function testing. Patient declines follow-up with pulmonary medicine at this time. 3. Acute kidney injury on chronic kidney disease stage II-stable, recommend repeat BMP by primary care physician in 1 week. Patient's creatinine actually improved during admission despite IV Lasix. 4. Severe Pulmonary Hypertension with cor pulmonale- RVSP 71mmhg on echo 07/02/19. Repeat echo with RVSP 67 mmHg as noted above. Recommend outpatient follow-up with pulmonary medicine. Patient currently does not wish to follow with another doctor. 6. Mild hypokalemia-replace per protocol, resolved. 7. Chronic polycythemia-secondary to chronic hypoxia. 8. Type 2 diabetes mellitus-continue home glipizide, Tradjenta regimen. 9. CAD status post PCI to RCA-continue aspirin, statin, Plavix. 10. Hypertension-stable, continue home losartan, metoprolol, Aldactone regimen. 11. Hyperlipidemia-continue statin. 12. Tobacco dependence-encouraged smoking cessation. 13. Generalized weakness-PT recommended outpatient physical therapy. Patient declined. General: Alert, Oriented x3, Cooperative HEENT: Atraumatic, PERRLA, EOMI, Normocephalic Oral: Moist Mucosa Neck: Supple, No JVD, Negative Carotid Bruits Lungs: Clear to auscultation, Diminished Cardiovascular: Regular rate, Regular Rhythm, Normal S1, Normal S2, No murmurs Abdomen: Bowel Sounds Present, Soft, Non Tender, Non-Distended Extremities: No clubbing, No cyanosis, Clubbing, Edema - Nonpitting bilateral lower extremities Skin: No rashes, No breakdown Musculoskeletal: No Tenderness to Palpation of Joints or Extremities Neurological: Cranial nerves II-XII grossly intact, Neuro grossly intact Psych/Mental Status: Normal Affect, Appropriate Patient seen and examined prior to discharge. Physical assessment as noted above. Patient is stable for discharge with follow up recommendations as noted above. This patient was seen by GRACY Mon under the supervision of Dr. Thacker. - Physical Exam Vital Signs Temp Pulse Resp BP Pulse Ox 96.4 F L 67 18 109/61 98 02/03/19 08:23 02/03/19 08:23 02/03/19 08:23 02/03/19 08:23 02/03/19 08:23 Oxygen Flow Rate (L/min) 3 Oxygen Delivery Method Nasal Cannula Weight: 115 lb 1.301 oz Body Mass Index (BMI) 21.9 Intake and Output for Last 24 Hours 02/01/19 02/02/19 02/03/19 23:59 23:59 23:59 Intake Total 1715 / 1715 1488 / 1488 Output Total 3425 / 3425 5585 / 5585 850 / 850 Balance -1710 / -1710 -4097 / -4097 -850 / -850 Microbiology Past 72 Hours 02/01/19 20:30 Gram Stain - Final Sputum, Expectorated/Coughed 02/01/19 16:15 Respiratory Panel (PCR) - Final Mucosa - Nose 02/01/19 16:15 Influenza Types A,B Direct FA (ZONIA) - Final Mucosa - Nasopharyngeal Laboratory Tests Past 24 Hrs 02/03/19 05:00 Sodium 131 L Potassium 4.1 Chloride 94 L Carbon Dioxide 30.0 Anion Gap 7 BUN 24 H Creatinine 1.36 H Estim Creat Clear Calc 26.53 Est GFR (MDRD) Af Amer 48 L Est GFR (MDRD) Non-Af 40 L BUN/Creatinine Ratio 17.6 Glucose 78 Calcium 9.1 POC Glucose 02/03/19 02/02/19 02/02/19 07:05 21:05 16:04 POC Glucose 91 238 H 166 H 02/02/19 11:06 POC Glucose 265 H Discharge Diet: Low fat/ Low Cholesterol Discharge Activity: Return to Normal Activity Call your doctor if you observe: Shortness of breath, Dizziness, Fainting spells, Chest pain Home Medications: Medications to take at Discharge Aspirin [Aspirin, Baby] 81 mg PO DAILY@0800 04/30/15 Clopidogrel Bisulfate [Plavix] 75 mg PO DAILY 04/30/15 Folic Acid 0.8 mg PO DAILY@0800 04/30/15 Losartan Potassium [Cozaar] 100 mg PO DAILY 04/30/15 Nitroglycerin [Nitrostat] 0.4 mg SUBLINGUAL Q5M PRN 04/30/15 [place]-3 Fatty Acids [Fish Oil] 300 mg PO DAILY 04/30/15 Rosuvastatin Calcium [Crestor] 40 mg PO DAILY 04/30/15 glipiZIDE [Glucotrol] 10 mg PO BID 04/30/15 Metformin HCl [Glucophage] 1,000 mg PO BID #1 tab 05/02/15 Sitagliptin Phosphate [Januvia] 100 mg PO DAILY 02/19/17 metoprolol succinate ER 100 mg tablet,extended release 24 hr 50 mg PO DAILY tab 04/29/18 spironolactone 25 mg tablet 12.5 mg PO DAILY #45 tab 01/02/19 Levofloxacin [Levaquin] 750 mg PO Q48H #3 tablet 02/03/19 Pantoprazole Sodium [Protonix] 40 mg PO DAILY #30 tablet 02/03/19 Following Prescrptions Were Given to Patient: Levofloxacin [Levaquin] 750 mg PO Q48H #3 tablet Pantoprazole Sodium [Protonix] 40 mg PO DAILY #30 tablet Primary Care Physician: No Espinoza DO [Primary Care Provider] - Please follow up with your Primary Care Physician in: 1 Week Please Follow Up With: Perico Dunne MD - May see PA/IT APPLICATION DEVELOPMENT MANAGER When: 2-3 Weeks Please Follow Up With: Gt Sherwood DO When: Recommend follow up with pulmonary medicine in 1-2 Weeks Disposition: Home Minutes spent on discharge:: 35 Patient Condition:: Stable Medical Necessity - Tobacco Use Smoking Status: Current every day smoker Tobacco Use: Cigarettes Meaningful Use Info Meaningful Use Diagnoses (Choose all that apply): CHF - CHF WINDY/ARB ordered at discharge?: Yes Documented LVEF (%): 55 <Elzbieta Thacker - Last Filed: 02/03/19 18:17> Discharge Date and Diagnosis - Secondary Discharge Diagnosis Chronic Problems (Last Updated 08/05/18 @ 16:17 by Nayeli Young) Tobacco abuse (Chronic) Essential hypertension (Chronic) Atherosclerotic heart disease of [place] coronary artery without angina pectoris (Chronic) Presence of stent in coronary artery (Chronic ~03/2002) PTCA/Stent of RCA 03/2002 COPD (chronic obstructive pulmonary disease) (Chronic) Chronic back pain (Chronic) Hyperlipidemia (Chronic) Diabetes mellitus, type II (Chronic) Hospital Course and Treatment Summary of Care Provided: This patient was seen in conjunction with Rhonda Hamlin NP. I have independently interviewed and examined the patient and reviewed pertinent historical, laboratory, and other data. Please refer to her note for patient's presentation, findings, and recommendations. 89-year-old female with past medical history of COPD, hypertension, type II DM, CAD status post stent, hypertension who comes in with complaints of shortness of breath and has been managed as acute diastolic CHF. Patient is admitting chest x-ray shows central vascular congestion, chest CT showed right lower lobe consolidation with effusion. Patient was started on IV Lasix with good improvement. She was started on IV Levaquin. Pulmonology was consulted, recommended treatment outpatient pulmonary function testing. Patient was discharged on Lasix 20mg po bid, needs to have her kidney function rechecked. Patient voices understanding of instructions. Subjective: On the day of discharge, patient was seen and examined. She feels much improved. She typically is on 2 L of oxygen. Currently on 3 L of oxygen. She has been diuresing a lot. Objective: Physical exam: General: Alert, Oriented x3, Cooperative, on 3L oxygen, comfortable HEENT: Atraumatic, PERRLA, EOMI, Normocephalic Oral: Moist Mucosa Neck: Supple, No JVD, Negative Carotid Bruits Lungs: Clear to auscultation, Diminished Cardiovascular: Regular rate, Regular Rhythm, Normal S1, Normal S2, No murmurs Abdomen: Bowel Sounds Present, Soft, Non Tender, Non-Distended Extremities: No clubbing, No cyanosis, Clubbing, Edema - Nonpitting bilateral lower extremities Skin: No rashes, No breakdown Musculoskeletal: No Tenderness to Palpation of Joints or Extremities Neurological: Cranial nerves II-XII grossly intact, Neuro grossly intact Psych/Mental Status: Normal Affect, Appropriate - Physical Exam Vital Signs Temp Pulse Resp BP Pulse Ox 97.1 F L 67 20 H 117/55 L 91 02/03/19 13:40 02/03/19 13:40 02/03/19 13:40 02/03/19 13:40 02/03/19 13:40 Oxygen Flow Rate (L/min) [At 2 REST on Room Air] Oxygen Flow Rate (L/min) 3 Oxygen Delivery Method Nasal Cannula Weight: 52.2 kg Body Mass Index (BMI) 21.9 Intake and Output for Last 24 Hours 02/01/19 02/02/19 02/03/19 23:59 23:59 23:59 Intake Total 1715 / 1715 1488 / 1488 Output Total 3425 / 3425 5585 / 5585 850 / 850 Balance -1710 / -1710 -4097 / -4097 -850 / -850 Microbiology Past 72 Hours 02/01/19 20:30 Gram Stain - Final Sputum, Expectorated/Coughed Respiratory Culture - Final 02/01/19 16:15 Respiratory Panel (PCR) - Final Mucosa - Nose 02/01/19 16:15 Influenza Types A,B Direct FA (ZONIA) - Final Mucosa - Nasopharyngeal Laboratory Tests Past 24 Hrs 02/03/19 02/03/19 05:00 05:10 Sodium 131 L Potassium 4.1 Chloride 94 L Carbon Dioxide 30.0 Anion Gap 7 BUN 24 H Creatinine 1.36 H Estim Creat Clear Calc 26.53 Est GFR (MDRD) Af Amer 48 L Est GFR (MDRD) Non-Af 40 L BUN/Creatinine Ratio 17.6 Glucose 78 Hemoglobin A1c 7.4 H Calcium 9.1 POC Glucose 02/03/19 02/03/19 02/02/19 11:24 07:05 21:05 POC Glucose > 500 H* 91 238 H Code Visit Inpatient E&M: 99656 Disch Hosp
--- NOTE | 2019-02-03 11:28 | CASEMGMT ---
Per therapy note, they are recommending HHC at this time but per Dr. Thacker, pt adamantly refused HHC at this time and states that niece will be coming to stay with her and help care for her. This RN CM to room at this time and pt does decline HHC and OP therapy at this time. [facility] and RN is testing if more than 2 liters will be needed at discharge. Pt also states that a nebulizer was supposed to be [facility]. SStaten RN CM
[2019-02-03 11:31] LABS: Bedside Glucose > 500 mg/dL (70-110)
--- NOTE | 2019-02-03 11:35 | PHA.DC.MC ---
Pharmacy Service has performed discharge medication reconciliation and counseling for this patient. The patient's discharge medication list was reviewed for discrepancies and discrepancies were resolved. The patient was counseled on the following discharge medications and changes in medications for homegoing were reviewed. 1. LEVOFLOXACIN 2. PANTOPRAZOLE The Reason for Use, instructions for use, and potential side effects were reviewed for all new medications. The patient's questions regarding all of their medications were answered. The patient demonstrated some understanding but would benefit from further education and reinforcement. Home Medications Aspirin [Aspirin, Baby] 81 mg PO DAILY@0800 04/30/15 Clopidogrel Bisulfate [Plavix] 75 mg PO DAILY 04/30/15 Folic Acid 0.8 mg PO DAILY@0800 04/30/15 Losartan Potassium [Cozaar] 100 mg PO DAILY 04/30/15 Nitroglycerin [Nitrostat] 0.4 mg SUBLINGUAL Q5M PRN 04/30/15 [place]-3 Fatty Acids [Fish Oil] 300 mg PO DAILY 04/30/15 Rosuvastatin Calcium [Crestor] 40 mg PO DAILY 04/30/15 glipiZIDE [Glucotrol] 10 mg PO BID 04/30/15 Metformin HCl [Glucophage] 1,000 mg PO BID #1 tab 05/02/15 Sitagliptin Phosphate [Januvia] 100 mg PO DAILY 02/19/17 metoprolol succinate ER 100 mg tablet,extended release 24 hr 50 mg PO DAILY tab 04/29/18 spironolactone 25 mg tablet 12.5 mg PO DAILY #45 tab 01/02/19 Levofloxacin [Levaquin] 750 mg PO Q48H #3 tablet 02/03/19 Pantoprazole Sodium [Protonix] 40 mg PO DAILY #30 tablet 02/03/19
[2019-02-03] MEDS: Insulin Lispro 100 UNIT/ML INSULN.PEN 15 UNIT SC (11:36)
--- NOTE | 2019-02-03 12:50 | CASEMGMT ---
Pt was 86% on 2 liters nc at rest and requires 3 liters to stay above 89%. New order for 3 liters of home oxygen faxed to [facility] at this time as well as accompanying documentation. Per Riaz [employer]INGLE [employer]NER [employer], pt does not require nebulizer at this time. Pt was also requesting hall monitor portable tanks but per Tiffanie at [facility], pt is already set up with 4lb tanks which are the lightest they have. Pt updated on all and voices understanding. Pt voices no further questions/concerns/needs at this time. Chalo RN CM
--- NOTE | 2019-02-03 12:58 | CASEMGMT ---
Pt's niece here to pick her up and they do not have portable tank with them to take pt home on. Call to Gurjit at [facility] and she states that will bring a portable tank right over for pt to go home on at this time. Chalo GARCIA CM
--- NOTE | 2019-02-03 13:00 | NURSING ---
pt ready to be dcd. niece her eto take pt home. pt has no portable o2 here. doug called by sw to bring portable o2 for pt. pt aware
--- NOTE | 2019-02-03 14:16 | NURSING ---
this rn called pt to advise pt to check her bs when she gets home. pt states she is currently at the pharmacy. states she will call the hospital with results
[2019-02-03 14:56] LABS: Hemoglobin A1c 7.4 % (4.2-6.3)
--- NOTE | 2019-02-03 15:36 | NURSING ---
pt called in. states blood sugar is 104.
[2019-02-04 07:05] LABS: Bedside Glucose > 500 mg/dL (70-110)
[2019-02-04 07:05] LABS: Bedside Glucose 466 mg/dL (70-110)
--- NOTE | 2019-02-04 16:10 | CASEMGMT ---
JOSE CARO DC PHONE CALL DC DATE: 02/03/19 DC Disposition: Home LACE/STRATA:09/07 Intro role of CM to patient via home phone. Pt states she is doing better. JOSE CARO inquired re: her blood sugar monitoring. She stated her am blood sugar was around 200 and it was 290 after lunch because she forgot to take it before lunch. Pt's sister is picking up her lasix today. JOSE CARO reviewed importance of taking the medications as prescribed. No further questions and no care improvement suggestions were given. Tammy LAO RN ACM
== END 2019-02-03 13:42 | disposition home or self-care (01) | DRG 291 ==
LOC: ED 20:08 → PCU 22:52
PROVIDERS: Internal Medicine; Nurse Practitioner Family; Admitting Provider Internal Medicine; Emergency Provider Emergency Medicine; Family Provider Internal Medicine; PCP Internal Medicine; Referring Provider Internal Medicine; Visit Provider Internal Medicine
DX: I13.0 Hypertensive heart and chronic kidney disease with heart failure and stage 1 through stage 4 chronic kidney disease, or unspecified chronic kidney disease (principal); J96.21 Acute and chronic respiratory failure with hypoxia; I50.31 Acute diastolic (congestive) heart failure; J18.9 Pneumonia, unspecified organism; J96.22 Acute and chronic respiratory failure with hypercapnia; N17.9 Acute kidney failure, unspecified; J44.0 Chronic obstructive pulmonary disease with (acute) lower respiratory infection; E87.6 Hypokalemia; D75.1 Secondary polycythemia; I25.10 Atherosclerotic heart disease of native coronary artery without angina pectoris; I27.29 Other secondary pulmonary hypertension; E78.5 Hyperlipidemia, unspecified; Z23 Encounter for immunization; R53.1 Weakness; E11.22 Type 2 diabetes mellitus with diabetic chronic kidney disease; N18.2 Chronic kidney disease, stage 2 (mild); Z95.5 Presence of coronary angioplasty implant and graft; G89.29 Other chronic pain; M54.9 Dorsalgia, unspecified; Z79.84 Long term (current) use of oral hypoglycemic drugs; F17.210 Nicotine dependence, cigarettes, uncomplicated
CPT/HCPCS: 36415; 36600; 71045; 71046; 71250; 80048; 80076; 81001; 82803; 82962; 83036; 83605; 83735; 83880; 84100; 84484; 85025; 85027; 87070; 87205; 87633; 87804; 93005; 93306; 94640; 94760; 97161; 97165; 97530; 99251; 99283; 99406; 90686; A4216; G0463; J1940

== ENCOUNTER 2019-12-09 14:07 | Inpatient (IN) | payer MEDICARE, OTHER, SELFPAY ==
[2019-06-04 14:04] VITALS: BMI 21.2
[2019-12-09] VITALS (16 sets, daily range): BP systolic 81–122; BP diastolic 40–86; PULSE 60–67; RESP 18–25; TEMP 35.8–36.6; O2SAT 86–100; BMI 20.7; BMI 22.4; BMI 22.5
--- NOTE | 2019-12-09 14:19 | RAD_ITS ---
STUDY: X-RAY CHEST REASON FOR EXAM: Female, 79 years old. Shortness of breath TECHNIQUE: Frontal and lateral views of the chest COMPARISON: 02/03/2019 FINDINGS: There is airspace opacity in the left lower lobe which is best visualized on the lateral view. This is consistent with an infiltrate. The lungs are otherwise clear. There are no pleural effusions. There is no pneumothorax. The heart is normal in size. The visualized osseous structures are within normal limits. RAD/Chest PA and Lateral IMPRESSION: Left lower lobe infiltrate. Electronically Signed: Larry Epstein, at 17:05 EST Tel , Service support ,
--- NOTE | 2019-12-09 15:03 | ED.DCSUM_ITS ---
History of Present Illness Chief Complaint: Shortness of Breath Informant: Patient Onset: Days Context: Gradual Onset Timing: Continuous Current Severity: Moderate Maximum Severity: Moderate Narrative: The patient is a 79-year-old female with history of COPD on home oxygen that presents to the emergency department with multiple complaints. The patient states that over the past 4 days, she has had fever, myalgias, decreased urinary output, and generalized malaise. She is had increasing shortness of breath with nonproductive cough. She denies any recent sick contacts. She states she is otherwise been in her normal state of health. She states that she just has not had any energy over the past few days. She has not had increase her oxygen. She is unsure of the last time she was on antibiotics. Prior similar symptoms: No Recent Illness/Hospitalization: No Past Medical History - Allergies and Home Meds Allergies/Adverse Reactions: Allergies Sulfa (Sulfonamide Antibiotics) Allergy (Verified 06/04/19 14:05) Nausea/Vom/Diarrhea hydrocodone bitartrate [From Vicodin] Adverse Reaction (Verified 06/04/19 14:05) Other Primary Care Physician: No Espinoza DO [Primary Care Provider] - Prior records reviewed: Yes Past Medical History: - - COPD Surgical History: cataract, hysterectomy, - - Coronary artery stent placement Smoking Status: Former smoker - Family History Maternal Family History: Family History (Last Reviewed 06/04/19 @ 14:11 by Nayeli Young) Mother CAD (coronary artery disease) Myocardial infarction, Onset Age: 50 Diabetes Sister CAD (coronary artery disease) History of coronary artery bypass surgery Sister CAD (coronary artery disease) Sister History of coronary artery bypass surgery Other CVA (cerebral vascular accident) Cancer Hypertension Family History: Reports: Diabetes Paternal Family History: Family History (Last Reviewed 06/04/19 @ 14:11 by Nayeli Young) Mother CAD (coronary artery disease) Myocardial infarction, Onset Age: 50 Diabetes Sister CAD (coronary artery disease) History of coronary artery bypass surgery Sister CAD (coronary artery disease) Sister History of coronary artery bypass surgery Other CVA (cerebral vascular accident) Cancer Hypertension Family History: Reports: Cancer - Father w/ prostate CA. Review of Systems General: Reports: Chills, Fever. Denies: Sweats Eyes: Denies: Visual changes - bilaterally, Diplopia ENT: Denies: Rhinorrhea, Sore throat Cardiovascular: Denies: Chest pain, Palpitations Respiratory: Reports: Cough. Denies: Dyspnea, Dyspnea on exertion Gastrointestinal: Reports: Nausea. Denies: Abdominal pain, Vomiting, Diarrhea, Melena, Hematochezia Genitourinary: Reports: Hematuria. Denies: Dysuria, Frequency Musculoskeletal: Denies: Back pain, Extremity Pain Skin: Denies: Rash, Wounds Neurological: Denies: Headache, Weakness, Numbness Physical Exam Vital Signs/Narrative: Vital Signs Temp Pulse Resp BP Pulse Ox 12/09/19 14:11 96.4 F L 62 18 102/42 L 100 12/09/19 14:10 96.4 F L 62 18 102/42 L 100 Inital Vital Signs reviewed: Yes General: Well nourished, Well developed, No Acute Distress Head: Normocephalic, Atraumatic Eyes: Perrl, EOMI ENT: Moist mucous membranes, No rhinorrhea Neck: Supple, Nontender Cardiovascular: Regular rate, Regular rhythm, No murmurs Respiratory: No distress, Chest nontender, Wheezing, Decreased Air Movement Abdomen: Soft, Nontender, Nondistended, Normal bowel sounds Back: Nontender, Normal Inspection Extremities: Nontender, No edema Skin: Normal color, No rash Neurological: Alert, Oriented x3, Cranial nerves II-XII grossly intact, Normal Strength, Normal Sensation Psychological: Normal affect, Normal Mood Diagnostic/Tx/Re-eval Chest X-Ray - ED: 2 View, Chronic Changes, Left Infiltrate Abnormal Lab Results 12/09/19 12/09/19 12/09/19 14:55 14:55 14:55 WBC 9.3 RBC 5.61 H Hgb 17.5 H Hct 53.8 H MCV 95.9 MCH 31.2 MCHC 32.5 RDW Std Deviation 57.2 H RDW Coeff of Dipika 16.3 H Plt Count 145 L MPV 12.0 Immature Gran % (Auto) 0.600 Neut % (Auto) 86.3 H Lymph % (Auto) 6.8 L Pierce % (Auto) 6.0 Eos % (Auto) 0.1 Baso % (Auto) 0.2 Absolute Neuts (auto) 8.0 H Absolute Lymphs (auto) 0.63 L Nucleated RBC % 0 Sodium Cancelled Potassium Cancelled Chloride Cancelled Carbon Dioxide Cancelled Anion Gap Cancelled BUN Cancelled Creatinine Cancelled Estim Creat Clear Calc Cancelled Est GFR (MDRD) Af Amer Cancelled Est GFR (MDRD) Non-Af Cancelled BUN/Creatinine Ratio Cancelled Glucose Cancelled Lactic Acid Cancelled Calcium Cancelled Total Bilirubin Cancelled AST Cancelled ALT Cancelled Alkaline Phosphatase Cancelled Troponin I Cancelled Total Protein Cancelled Albumin Cancelled Globulin Cancelled Albumin/Globulin Ratio Cancelled Urine Color Urine Clarity Urine pH Ur Specific [place] Urine Protein Urine Glucose (UA) Urine Ketones Urine Occult Blood Urine Nitrite Urine Bilirubin Urine Urobilinogen Ur Leukocyte Esterase Urine RBC Urine WBC Ur Squamous Epith Cells Amorphous Sediment Urine Bacteria Urine Mucus 12/09/19 12/09/19 12/09/19 15:38 15:38 15:53 WBC RBC Hgb Hct MCV MCH MCHC RDW Std Deviation RDW Coeff of Dipika Plt Count MPV Immature Gran % (Auto) Neut % (Auto) Lymph % (Auto) Pierce % (Auto) Eos % (Auto) Baso % (Auto) Absolute Neuts (auto) Absolute Lymphs (auto) Nucleated RBC % Sodium Cancelled Potassium Cancelled Chloride Cancelled Carbon Dioxide Cancelled Anion Gap Cancelled BUN Cancelled Creatinine Cancelled Estim Creat Clear Calc Cancelled Est GFR (MDRD) Af Amer Cancelled Est GFR (MDRD) Non-Af Cancelled BUN/Creatinine Ratio Cancelled Glucose Cancelled Lactic Acid Cancelled Calcium Cancelled Total Bilirubin Cancelled AST Cancelled ALT Cancelled Alkaline Phosphatase Cancelled Troponin I Cancelled Total Protein Cancelled Albumin Cancelled Globulin Cancelled Albumin/Globulin Ratio Cancelled Urine Color Yellow Urine Clarity Sl. Cloudy Urine pH 5.0 Ur Specific [place] 1.020 Urine Protein 100 H Urine Glucose (UA) 250 H Urine Ketones 5 H Urine Occult Blood 10 H Urine Nitrite Negative Urine Bilirubin Negative Urine Urobilinogen Normal Ur Leukocyte Esterase 25 H Urine RBC 0-5 SEEN Urine WBC 0-5 SEEN Ur Squamous Epith Cells 0-5 SEEN Amorphous Sediment 1+ URATE Urine Bacteria 0 SEEN Urine Mucus 0 SEEN - Medical Decision Making Hauser catheter was placed. The patient only had 150 cc of dark urine out. There was no evidence of infection. Her symptoms do seem primarily infectious. She has coarse lung sounds with wheezing. She was given a nebulized breathing treatment and shortly after became 88% on her 3 L. Her oxygen was increased. She was given Solu-Medrol. The patient's blood pressure was on the lower aspect of normal. She was aggressively hydrated especially given she has had little urine output within the past 2 days. Screening labs were obtained. The patient does not have a leukocytosis, but she does have evidence of acute kidney injury. Her troponin is also indeterminant, but she has not had chest pain. She has been dyspneic, but is also had cough, fevers, and chills. My suspicion is that this is more likely infectious. Chest x-ray does show left lower lobe infiltrate. The patient had blood cultures. She was covered with broad- spectrum antibiotics. Her blood pressure is stabilized after fluids. However, given the fact she has acute kidney injury, diminished appetite, and an infectious process I do feel that she would benefit from admission. Impression 1. Community-acquired pneumonia 2. Acute kidney injury 3. Indeterminate troponin ED Disposition - Plan for ED Patient: Referrals: No Espinoza DO [Primary Care Provider] -
[2019-12-09 15:11] LABS: Absolute Lymphocyte Count 0.63 X10^3/uL (0.83-4.51); Basophil# 0.02 X10^3/uL; Basophil% 0.2 % (0-1); Eosinophil# 0.01 X10^3/uL; Eosinophils% 0.1 % (0-5); Hematocrit 53.8 % (37-47); Hemoglobin 17.5 g/dL (12.0-15.0); Lymphocyte # 0.63 X10^3/ul (4.0); Lymphocyte % 6.8 % (19-41); Mean Corp Hgb Conc 32.5 g/dL (32-36); Mean Corpuscular Hgb 31.2 pg (27.0-32.0); Mean Corpuscular Volume 95.9 fL (81-99); Monocyte# 0.56 X10^3/uL; NRBC Flagged by Analyzer 0 % (0-5); Neutrophil # 8.04 X10^3/uL (2.7-7.7); Neutrophil % 86.3 % (47-70); Platelet Count 145 K/mm3 (150-450); RBC Distribution Width CV 16.3 % (11.6-14.6); RBC Distribution Width SD 57.2 fl (35.1-43.9); Red Blood Count 5.61 M/mm3 (4.2-5.4); White Blood Count 9.3 K/mm3 (4.4-11.0)
[2019-12-09] MEDS: Ondansetron 4 MG/2 ML Vial IV (15:27)
[2019-12-09] MEDS: 0.9% Normal Saline 1,000 ML 1000 ML IV (15:27)
[2019-12-09] MEDS: Ipratropium/Albuterol Sulfate 3 ML AMPUL.NEB INHALATION (15:52)
[2019-12-09 16:02] LABS: Bacteria 0 SEEN /hpf (None Seen); Mucous, Urine 0 SEEN /hpf (<or=2+)
[2019-12-09 16:06] LABS: Color, Urine Yellow (Yellow); Glucose, Dipstick 250 mg/dl (Normal); Ketone-Dipstick 5 mg/dl (Negative); Leukocyte Esterase-Dipstick 25 /ul (Negative); Nitrite-Dipstick Negative (Negative); Occult Blood-Urine 10 /ul (Negative); Protein-Dipstick 100 mg/dl (Negative); Urine Bilirubin Dipstick Negative (Negative); Urine Clarity Sl. Cloudy (Clear); Urine Urobilinogen Normal (Normal)
[2019-12-09 16:26] LABS: Red Blood Cells-Urine 0-5 SEEN /hpf (0-5); Squamous Epithelial Cells - UA 0-5 SEEN /hpf (5-10); White Blood Cells 0-5 SEEN /hpf (0-5)
[2019-12-09 16:27] LABS: Amorphous Sediment 1+ URATE
[2019-12-09] MEDS: 0.9% Normal Saline 1,000 ML 999 ML IV (16:34)
--- NOTE | 2019-12-09 16:41 | ED.RN ---
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 pt now going to xray. dr. zhao informed.
[2019-12-09] MEDS: MethylPREDNISolone 125 MG/2 ML Vial IV (16:46)
[2019-12-09 16:51] LABS: ALB/GLOB Ratio 0.7 RATIO (0.9-2.4); AST(SGOT) 37 U/L (15-37); Alanine Aminotransfer ALT/SGPT 27 U/L (13-56); Albumin, Serum 2.5 g/dL (3.2-5.0); Alkaline Phosphatase 90 U/L (45-117); Anion Gap 14 (5-15); BUN 64 mg/dL (7-18); BUN/Creat Ratio 15.2 RATIO (10-20); Calcium,Total 7.6 mg/dL (8.5-10.1); Chloride 90 mmol/L (98-107); EST Glomerular Filtration Rate 11 mL/min (>60); Est Glom Filt Rate - Afr Amer 13 mL/min (>60); Estimated Creatinine Clearance 8.59 ml/min; Globulin 3.8 g/dL (2.2-4.2); Glucose 64 mg/dL (74-106); Potassium 4.9 mmol/L (3.5-5.1); Protein, Total 6.3 g/dL (6.4-8.2); Sodium Level 127 mmol/L (136-145)
--- NOTE | 2019-12-09 16:53 | EKG12_ITS ---
Test Reason : SOB Blood Pressure : / mmHG Vent. Rate : 065 BPM Atrial Rate : 065 BPM P-R Int : 204 ms QRS Dur : 138 ms QT Int : 520 ms P-R-T Axes : 073 257 070 degrees QTc Int : 540 ms Normal sinus rhythm Non-specific intra-ventricular conduction block Possible Anterolateral infarct , age undetermined Abnormal ECG Confirmed by MYRIAM SULLIVAN ([id number]), order editor FITO PANDEY ([id number]) on 12/12/2019 9:41:39 AM Referred By: BEATRIZ Confirmed By:MYRIAM SULLIVAN
--- NOTE | 2019-12-09 16:59 | HP.PCM_ITS ---
<Rhonda Hamlin - Last Filed: 12/09/19 17:46> Problem List (1) Pure hypercholesterolemia Status: Chronic (2) Chronic diastolic heart failure Status: Chronic (3) Respiratory failure Status: Chronic Qualifiers: Chronicity: unspecified Respiratory failure complication: hypoxia and hypercapnia Qualified Code(s): J96.91 - Respiratory failure, unspecified with hypoxia; J96.92 - Respiratory failure, unspecified with hypercapnia (4) Pulmonary hypertension Status: Chronic Comment: RVSP 67 mmHg, likely WHO group 3 (5) History of myocardial infarction Status: Acute (6) Tobacco abuse Status: Chronic (7) Essential hypertension Status: Chronic (8) Atherosclerotic heart disease of enterprise coronary artery without angina pectoris Status: Chronic Qualifiers: [place] vs. 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 The patient is a 79 year old F who presents to the emergency room due to malaise and generalized weakness. Patient reports she has had ongoing cough for the last few weeks and progressive weakness. She also reports diarrhea for the past week which is dark in color. She denies blood in stool. She has had poor oral intake, nausea and vomiting. Patient reports she fell on Sunday. She denies hitting her head or other injury. Patient's niece lives with her who is her car electronics installer. Patient and car electronics installer state she has not urinated for 4 days. Patient denies exposure to sick contacts. Denies recent antibiotic use. She also reports fever, chills. Patient denies chest pain. She chronically wears 3 L nasal cannula and has not required increasing supplemental O2. 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 Past Medical History Past Medical History (Chronic Problems): Chronic Problems (Last Reviewed 06/04/19 @ 14:11 by Nayeli Young) Pure hypercholesterolemia (Chronic) Chronic diastolic heart failure (Chronic) Respiratory failure (Chronic) Pulmonary hypertension (Chronic) RVSP 67 mmHg, likely WHO group 3 Tobacco abuse (Chronic) Essential hypertension (Chronic) Atherosclerotic heart disease of enterprise coronary artery without angina pectoris (Chronic) Presence of stent in coronary artery (Chronic ~03/2002) PTCA/Stent of RCA 03/2002 COPD (chronic obstructive pulmonary disease) (Chronic) Chronic back pain (Chronic) Diabetes mellitus, type II (Chronic) Medical History: Medical History (Last Reviewed 06/04/19 @ 14:11 by Nayeli Young) Pure hypercholesterolemia (Chronic) E78.00 Chronic diastolic heart failure (Chronic) I50.32 History of myocardial infarction (Acute) I25.2 Essential hypertension (Chronic) I10 Atherosclerotic heart disease of enterprise coronary artery without angina pectoris (Chronic) I25.10 COPD (chronic obstructive pulmonary disease) (Chronic) J44.9 Chronic back pain (Chronic) M54.9, G89.29 Diabetes mellitus, type II (Chronic) E11.9 Peripheral vascular disease I73.9 TIA (transient ischemic attack) G45.9 Constipation (Resolved) K59.00 Decreased stool caliber (Resolved) R19.5 Allergies Sulfa (Sulfonamide Antibiotics) Allergy (Verified 06/04/19 14:05) Nausea/Vom/Diarrhea hydrocodone bitartrate [From Vicodin] Adverse Reaction (Verified 06/04/19 14:05) Other Home Medications: Ambulatory Orders Medication Instructions Recorded Aspirin [Aspirin, Baby] 81 mg PO DAILY@0800 04/30/15 Clopidogrel Bisulfate [Plavix] 75 mg PO DAILY 04/30/15 Folic Acid 0.8 mg PO DAILY@0800 04/30/15 Nitroglycerin (INPATIENT USE) 0.4 mg SUBLINGUAL Q5M PRN 04/30/15 [Nitrostat] Rosuvastatin Calcium [Crestor] 40 mg PO DAILY 04/30/15 glipiZIDE [Glucotrol] 10 mg PO BID #60 tab 02/03/19 cholecalciferol (vitamin D3) 125 5,000 unit PO DAILY cap 02/25/19 mcg (5,000 unit) capsule empagliflozin 10 mg tablet 10 mg PO DAILY 02/25/19 insulin glargine U-300 conc 300 10 unit SC DAILY 90 Days #2.7 ml 02/25/19 unit/mL (1.5 mL) subcutaneous pen omega-3 fatty acids 1,000 mg 1,000 mg PO DAILY 02/25/19 capsule furosemide 20 mg tablet 10 mg PO DAILY tab 06/04/19 metformin 500 mg tablet 500 mg PO BID tab 06/04/19 metoprolol succinate 100 mg 100 mg PO BID tab 06/04/19 tablet,extended release 24 hr sitagliptin 100 mg tablet 100 mg PO DAILY 06/04/19 spironolactone 25 mg tablet 12.5 mg PO DAILY tab 06/04/19 Losartan Potassium 50 mg PO DAILY 12/09/19 Naproxen Sodium [Aleve] 440 mg PO BID PRN PRN 12/09/19 Surgical History: Surgical History (Last Reviewed 12/09/19 @ 17:04 by GRACY Mon) Presence of stent in coronary artery (Chronic) Onset Date: ~03/2002 Z95.5 PTCA/Stent of RCA 03/2002 History of breast biopsy Z98.890 History of cholecystectomy Z90.49 History of heart artery stent Z95.5 History of hysterectomy Z90.710 Postsurgical percutaneous transluminal coronary angioplasty (PTCA) status Onset Date: ~03/2002 Z98.61 PTCA/Stent of RCA 03/2002 Surgical History: cataract, hysterectomy, - - Coronary artery stent placement Psychiatric History: Anxiety 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 Lives: Alone Smoking Status: Former smoker Alcohol: None Drugs: None - *Family History Maternal Family History: Family History (Last Reviewed 12/09/19 @ 17:04 by GRACY Mon) Mother CAD (coronary artery disease) Myocardial infarction, Onset Age: 50 Diabetes Sister CAD (coronary artery disease) History of coronary artery bypass surgery Sister CAD (coronary artery disease) Sister History of coronary artery bypass surgery Other CVA (cerebral vascular accident) Cancer Hypertension History Items: Diabetes Paternal Family History: Family History (Last Reviewed 12/09/19 @ 17:04 by GRACY Mon) Mother CAD (coronary artery disease) Myocardial infarction, Onset Age: 50 Diabetes Sister CAD (coronary artery disease) History of coronary artery bypass surgery Sister CAD (coronary artery disease) Sister History of coronary artery bypass surgery Other CVA (cerebral vascular accident) Cancer Hypertension History Items: Cancer - Father w/ prostate CA. Review of Systems Constitutional: Reports: Anorexia, Chills, Fever, Malaise, Weakness, Fatigue HEENT: Denies: Head Aches, Sinus Congestion, Sinus Drainage Cardiovascular: Denies: Chest Pain, Edema, Light Headedness, Palpitations, Syncope Respiratory: Reports: Cough, Shortness of Breath. Denies: Sputum production Gastrointestinal: Reports: Diarrhea, Nausea, Vomiting. Denies: Abdominal Pain Genitourinary: Reports: - - No urine output x4 days. Denies: Dysuria Musculoskeletal: Denies: Joint Pain, Joint Tenderness Skin: Denies: Rash, Wounds Neurological: Denies: Numbness, Tingling, Focal weakness Psychiatric: Denies: Anxiety, Depression, Homicidal Ideations, Suicidal Ideations Hematologic/ Lymphatic: Denies: Easy Bruising, Easy Bleeding VTE Information - Inpt Only VTE Present on Admission: No VTE Mechan Device Prophylaxis: None VTE Pharm Prophylaxis ordered?: Yes - Physical Exam Vitals/I&O's: Vital Signs Temp Pulse Resp BP Pulse Ox 96.4 F L 67 21 H 95/49 L 90 12/09/19 14:11 12/09/19 16:18 12/09/19 16:18 12/09/19 16:37 12/09/19 16:18 Oxygen Flow Rate (L/min) 4 Oxygen Delivery Method Nasal Cannula Weight: 113 lb 3.671 oz Body Mass Index (BMI) 20.7 Intake and Output for Last 24 Hours 12/07/19 12/08/19 12/09/19 23:59 23:59 23:59 Intake Total 1000 / 1000 Balance 1000 / 1000 General: Alert, Oriented x3, Cooperative HEENT: Atraumatic, PERRLA, EOMI, Normocephalic Oral: Dry Mucosa Neck: Supple, No JVD, Negative Carotid Bruits Lungs: Diminished, Wheezes Cardiovascular: Regular rate, Regular Rhythm, Normal S1, Normal S2 Abdomen: Bowel Sounds Present, Soft, Non Tender, Non-Distended Extremities: No clubbing, No cyanosis, Capillary Refill Less than 3 Seconds, Edema - Bilateral lower extremity edema, right greater than left Skin: No rashes, No breakdown Musculoskeletal: No Tenderness to Palpation of Joints or Extremities Neurological: Cranial nerves II-XII grossly intact, Neuro grossly intact Psych/Mental Status: Normal Affect, Appropriate Microbiology Past 72 Hours 12/09/19 15:58 Mucosa - Nasopharyngeal Influenza Types A,B Direct FA ([facility] [place]) - Final Laboratory Results 12/09/19 14:55: WBC 9.3, RBC 5.61 H, Hgb 17.5 H, Hct 53.8 H, MCV 95.9, MCH 31.2, MCHC 32.5, RDW Std Deviation 57.2 H, RDW Coeff of Dipika 16.3 H, Plt Count 145 L, MPV 12.0, Immature Gran % (Auto) 0.600, Neut % (Auto) 86.3 H, Lymph % (Auto) 6.8 L, [place] % (Auto) 6.0, Eos % (Auto) 0.1, Baso % (Auto) 0.2, Absolute Neuts (auto) 8.0 H, Absolute Lymphs (auto) 0.63 L, Nucleated RBC % 0 12/09/19 14:55: Sodium Cancelled, Potassium Cancelled, Chloride Cancelled, Carbon Dioxide Cancelled, Anion Gap Cancelled, BUN Cancelled, Creatinine Cancelled, Estim Creat Clear Calc Cancelled, Est GFR (MDRD) Af Amer Cancelled, Est GFR (MDRD) Non-Af Cancelled, BUN/Creatinine Ratio Cancelled, Glucose Cancelled, Calcium Cancelled, Total Bilirubin Cancelled, AST Cancelled, ALT Cancelled, Alkaline Phosphatase Cancelled, Troponin I Cancelled, Total Protein Cancelled, Albumin Cancelled, Globulin Cancelled, Albumin/Globulin Ratio Cancelled 12/09/19 14:55: Lactic Acid Cancelled 12/09/19 15:38: Lactic Acid Cancelled 12/09/19 15:38: Sodium Cancelled, Potassium Cancelled, Chloride Cancelled, Carbon Dioxide Cancelled, Anion Gap Cancelled, BUN Cancelled, Creatinine Cancelled, Estim Creat Clear Calc Cancelled, Est GFR (MDRD) Af Amer Cancelled, Est GFR (MDRD) Non-Af Cancelled, BUN/Creatinine Ratio Cancelled, Glucose Cancelled, Calcium Cancelled, Total Bilirubin Cancelled, AST Cancelled, ALT Cancelled, Alkaline Phosphatase Cancelled, Troponin I Cancelled, Total Protein Cancelled, Albumin Cancelled, Globulin Cancelled, Albumin/Globulin Ratio Cancelled 12/09/19 15:53: Urine Color Yellow, Urine Clarity Sl. Cloudy, Urine pH 5.0, Ur Specific [place] 1.020, Urine Protein 100 H, Urine Glucose (UA) 250 H, Urine Ketones 5 H, Urine Occult Blood 10 H, Urine Nitrite Negative, Urine Bilirubin Negative, Urine Urobilinogen Normal, Ur Leukocyte Esterase 25 H, Urine RBC 0-5 SEEN, Urine WBC 0-5 SEEN, Ur Squamous Epith Cells 0-5 SEEN, Amorphous Sediment 1+ URATE, Urine Bacteria 0 SEEN, Urine Mucus 0 SEEN 12/09/19 16:25: Sodium 127 L, Potassium 4.9, Chloride 90 L, Carbon Dioxide 23.0, Anion Gap 14, BUN 64 H, Creatinine 4.20 H, Estim Creat Clear Calc 8.59, Est GFR (MDRD) Af Amer 13 L, Est GFR (MDRD) Non-Af 11 L, BUN/Creatinine Ratio 15.2, Glucose 64 L, Calcium 7.6 L, Total Bilirubin 0.80, AST 37, ALT 27, Alkaline Phosphatase 90, Troponin I 0.340 H, Total Protein 6.3 L, Albumin 2.5 L, Globulin 3.8, Albumin/Globulin Ratio 0.7 L 12/09/19 16:25: Lactic Acid Pending Current Medications Sodium Chloride () 1,000 mls @ 999 mls/hr IV .Q1H1M ONE Stop: 12/09/19 17:19 Last Admin: 12/09/19 16:34 Dose: 999 mls/hr Documented by: Ceftriaxone Sodium (Rocephin) 1 gm in 50 mls @ 100 mls/hr IV X1 ONE Stop: 12/09/19 17:19 Doxycycline Hyclate 100 mg/ (Dextrose) 260 mls @ 250 mls/hr IV X1 ONE Stop: 12/09/19 17:52 Assessment/Plan All Active Problems (Last Reviewed 06/04/19 @ 14:11 by Nayeli Young) History of myocardial infarction (Acute) Constipation (Resolved) Decreased stool caliber (Resolved) 1. Community-acquired left lower lobe pneumonia-chest x-ray admission with left lower lobe infiltrate. No leukocytosis. Afebrile. Check urine for strep and Legionella. Sputum culture. Albuterol and DuoNeb aerosols. IV azithromycin and IV Rocephin. 2. Acute on chronic combined hypoxic and hypercapnic respiratory failure secondary to #1 with chronic COPD-patient wears 3 L nasal cannula continuously at baseline. Continue supplement oxygen to maintain O2 at or above 90%. 3. Acute kidney injury on chronic kidney disease stage II-suspect secondary to dehydration as a result of ongoing diarrhea and acute illness. IV fluids, trend BMP. If kidney function not significantly improved, plan for renal ultrasound and nephrology consult tomorrow. Strict I&O. Hauser in place. Hold diuretic regimen. 4. Lactic acidosis-suspect secondary to acute renal failure and hypoxia. No fever or leukocytosis. IV fluids, repeat lactic acid. 5. Hypovolemic hyponatremia-IV fluids, trend BMP. 6. Hypotension-suspect secondary to hypovolemia. Trend BP. 7. Suspected viral gastroenteritis-patient reports nausea, vomiting and diarrhea x1 week. No recent antibiotic use. Check stool for C. difficile, enteric pathogen panel. IV fluids. PRN antiemetics. 8. Abnormal troponin-patient denies chest pain. Suspect secondary to acute renal failure. Trend enzymes. 9. Chronic diastolic CHF-Echocardiogram January 2019 demonstrated an EF of 65%, moderate global right ventricular systolic dysfunction, moderate tricuspid valve insufficiency, RVSP estimated to be 67 mmHg. Monitor for fluid overload given aggressive hydration due to renal failure. 10. Severe Pulmonary Hypertension with cor pulmonale- Echo with RVSP 67 mmHg as noted above. Follows with pulmonary medicine as outpatient. 11. Chronic polycythemia-secondary to chronic hypoxia. 12. Type 2 diabetes mellitus-hold oral regimen. Accu-Cheks with sliding scale insulin. 13. CAD status post PCI to RCA-continue aspirin, statin, Plavix. 14. Hypertension-hold BP regimen given hypotension. 15. Hyperlipidemia-continue statin. 16. Tobacco dependence-encouraged smoking cessation. 17. Moderate to severe protein calorie malnutrition-as evidenced by cachectic appearance, recent weight loss. Nutrition consult. DVT prophylaxis- heparin sc CODE STATUS: DNR CCA This patient was seen by Rhonda Hamlin NP-C under the supervision of Dr. Thacker. <Elzbieta Thacker - Last Filed: 02/04/20 18:42> History of Present Illness The patient is a 79 year old F [] Past Medical History Medical History: Medical History (Last Reviewed 06/04/19 @ 14:11 by Nayeli Young) Pure hypercholesterolemia (Chronic) E78.00 Chronic diastolic heart failure (Chronic) I50.32 History of myocardial infarction (Acute) I25.2 Essential hypertension (Chronic) I10 Atherosclerotic heart disease of [place] coronary artery without angina pectoris (Chronic) I25.10 COPD (chronic obstructive pulmonary disease) (Chronic) J44.9 Chronic back pain (Chronic) M54.9, G89.29 Diabetes mellitus, type II (Chronic) E11.9 Peripheral vascular disease I73.9 TIA (transient ischemic attack) G45.9 Constipation (Resolved) K59.00 Decreased stool caliber (Resolved) R19.5 Allergies Sulfa (Sulfonamide Antibiotics) Allergy (Verified 06/04/19 14:05) Nausea/Vom/Diarrhea hydrocodone bitartrate [From Vicodin] Adverse Reaction (Verified 06/04/19 14:05) Other Surgical History: Surgical History (Last Reviewed 12/09/19 @ 17:04 by GRACY Mon) Presence of stent in coronary artery (Chronic) Onset Date: ~03/2002 Z95.5 PTCA/Stent of RCA 03/2002 History of breast biopsy Z98.890 History of cholecystectomy Z90.49 History of heart artery stent Z95.5 History of hysterectomy Z90.710 Postsurgical percutaneous transluminal coronary angioplasty (PTCA) status Onset Date: ~03/2002 Z98.61 PTCA/Stent of RCA 03/2002 - *Family History Maternal Family History: Family History (Last Reviewed 12/09/19 @ 17:04 by GRACY Mon) Mother CAD (coronary artery disease) Myocardial infarction, Onset Age: 50 Diabetes Sister CAD (coronary artery disease) History of coronary artery bypass surgery Sister CAD (coronary artery disease) Sister History of coronary artery bypass surgery Other CVA (cerebral vascular accident) Cancer Hypertension Paternal Family History: Family History (Last Reviewed 12/09/19 @ 17:04 by GRACY Mon) Mother CAD (coronary artery disease) Myocardial infarction, Onset Age: 50 Diabetes Sister CAD (coronary artery disease) History of coronary artery bypass surgery Sister CAD (coronary artery disease) Sister History of coronary artery bypass surgery Other CVA (cerebral vascular accident) Cancer Hypertension - Physical Exam Vitals/I&O's: Vital Signs Temp Pulse Resp BP Pulse Ox 97.5 F L 65 21 H 101/65 92 12/09/19 17:54 12/09/19 17:54 12/09/19 17:54 12/09/19 17:54 12/09/19 17:54 Oxygen Flow Rate (L/min) 4 Oxygen Delivery Method Nasal Cannula Weight: 51.36 kg Body Mass Index (BMI) 20.7 Intake and Output for Last 24 Hours 12/07/19 12/08/19 12/09/19 23:59 23:59 23:59 Intake Total Balance Microbiology Past 72 Hours 12/09/19 15:58 Mucosa - Nasopharyngeal Influenza Types A,B Direct FA ([facility]) - Final Laboratory Results 12/09/19 14:55: WBC 9.3, RBC 5.61 H, Hgb 17.5 H, Hct 53.8 H, MCV 95.9, MCH 31.2, MCHC 32.5, RDW Std Deviation 57.2 H, RDW Coeff of [place]ika 16.3 H, Plt Count 145 L, MPV 12.0, Immature Gran % (Auto) 0.600, Neut % (Auto) 86.3 H, Lymph % (Auto) 6.8 L, [place] % (Auto) 6.0, Eos % (Auto) 0.1, Baso % (Auto) 0.2, Absolute Neuts (auto) 8.0 H, Absolute Lymphs (auto) 0.63 L, Nucleated RBC % 0 12/09/19 14:55: Sodium Cancelled, Potassium Cancelled, Chloride Cancelled, Carbon Dioxide Cancelled, Anion Gap Cancelled, BUN Cancelled, Creatinine Cancelled, Estim Creat Clear Calc Cancelled, Est GFR (MDRD) Af Amer Cancelled, Est GFR (MDRD) Non-Af Cancelled, BUN/Creatinine Ratio Cancelled, Glucose Cancelled, Calcium Cancelled, Total Bilirubin Cancelled, AST Cancelled, ALT Cancelled, Alkaline Phosphatase Cancelled, Troponin I Cancelled, Total Protein Cancelled, Albumin Cancelled, Globulin Cancelled, Albumin/Globulin Ratio Cancelled 12/09/19 14:55: Lactic Acid Cancelled 12/09/19 15:38: Lactic Acid Cancelled 12/09/19 15:38: Sodium Cancelled, Potassium Cancelled, Chloride Cancelled, Carbon Dioxide Cancelled, Anion Gap Cancelled, BUN Cancelled, Creatinine Cancelled, Estim Creat Clear Calc Cancelled, Est GFR (MDRD) Af Amer Cancelled, Est GFR (MDRD) Non-Af Cancelled, BUN/Creatinine Ratio Cancelled, Glucose Cancelled, Calcium Cancelled, Total Bilirubin Cancelled, AST Cancelled, ALT Cancelled, Alkaline Phosphatase Cancelled, Troponin I Cancelled, Total Protein Cancelled, Albumin Cancelled, Globulin Cancelled, Albumin/Globulin Ratio Cancelled 12/09/19 15:53: Urine Color Yellow, Urine Clarity Sl. Cloudy, Urine pH 5.0, Ur Specific [place] 1.020, Urine Protein 100 H, Urine Glucose (UA) 250 H, Urine Ketones 5 H, Urine Occult Blood 10 H, Urine Nitrite Negative, Urine Bilirubin Negative, Urine Urobilinogen Normal, Ur Leukocyte Esterase 25 H, Urine RBC 0-5 SEEN, Urine WBC 0-5 SEEN, Ur Squamous Epith Cells 0-5 SEEN, Amorphous Sediment 1+ URATE, Urine Bacteria 0 SEEN, Urine Mucus 0 SEEN 12/09/19 16:25: Sodium 127 L, Potassium 4.9, Chloride 90 L, Carbon Dioxide 23.0, Anion Gap 14, BUN 64 H, Creatinine 4.20 H, Estim Creat Clear Calc 8.59, Est GFR (MDRD) Af Amer 13 L, Est GFR (MDRD) Non-Af 11 L, BUN/Creatinine Ratio 15.2, Glucose 64 L, Calcium 7.6 L, Total Bilirubin 0.80, AST 37, ALT 27, Alkaline Phosphatase 90, Troponin I 0.340 H, Total Protein 6.3 L, Albumin 2.5 L, Globulin 3.8, Albumin/Globulin Ratio 0.7 L 12/09/19 16:25: Lactic Acid 4.5 H* Assessment/Plan This patient was seen in conjunction with Rhonda Hamlin. I have independently interviewed and examined the patient and reviewed pertinent historical, laboratory, and other data. I have reviewed her note and concur with her documentation CC: Multiple complaints of generalized weakness, diarrhea, poor urine output, shortness of breath HPI: 79-year-old with past medical history of multiple comorbidities significant for chronic diastolic CHF, COPD, chronic hypoxic respiratory failure on 3 L of oxygen at home who comes in with generalized weakness, diarrhea ongoing for 5 to 6 days, poor urine output and shortness of breath. Patient denies any recent travels, no new restaurant or trying new food. No sick contacts. She denies any fever or chills. She noticed poor urine output. Denies any dizziness or palpitations or chest pain PMHX: As Above, reviewed PSHx: As above, reviewed FHX: As above, reviewed SHX: Denies any smoking, drinking or use of illicit drugs Physical Exam: Vitals: Temperature was 96.4F, heart rate 62, blood pressure 102/42, respiratory rate 18, SPO2 was 100% on 3 L, patient later dropped her blood pressure to 81/47, fluid responsive Gen: Looks in some discomfort, pale, not jaundiced, severely dehydrated CVS:HS I +II, regular, no murmurs RESP: Diminished all over lung sheldon, crackles heard at left lung base GI: BS present and normal, soft, nontender, no palpable organs EXT:Bilateral pedal edema +2 Labs: WBC count is 9.3, hemoglobin 17.5, platelet count 145, sodium 127, potassium 4.9, chloride 90, bicarbonate 23, BUN 64, creatinine 4.2, lactic acid 4.5 Troponin 0 0.340 ASSESSMENT: 1. Severe sepsis secondary to pneumonia, present on admission 2. Pneumonia 3. Acute diarrhea 4. Acute on chronic respiratory failure 5. Type II DM 6. Acute on chronic hyponatremia 7. Acute kidney injury on CKD stage III 8. Elevated troponin likely secondary to YUDI 9. Moderate diastolic CHF/severe pulmonary hypertension with cor pulmonale, no signs of acute exacerbation 10. Chronic polycythemia 11. CAD status post PCI to RCA Plan: Admit to PCU, IV fluids, repeat lactic acid Continue IV ceftriaxone and doxycycline EKG, Trend troponins Ultrasound of the kidneys and bladder Repeat blood work in a.m. CODE STATUS is a DNR CCA Code Visit Inpatient E&M: 13464 Init Hosp L3
[2019-12-09 17:11] LABS: Lactic Acid 4.5 mmol/L (0.4-1.9)
--- NOTE | 2019-12-09 17:15 | NURSING ---
119 CAP, YUDI PAINTSIL
[2019-12-09] MEDS: Ceftriaxone 1 GM/50 ML BAG IV (17:16)
--- NOTE | 2019-12-09 17:31 | ED.RN ---
PT IV INFILTRATED. IV FLUIDS PAUSED AT THIS TIME. PT HARD STICK. ADDITIONAL RN TO TRY FOR IV.
--- NOTE | 2019-12-09 18:44 | VDLE_ITS ---
Reason For Study: SWELLING RIGHT LEFT GSV is normal. GSV is normal. CFV is compressible, spontaneous, phasic, CFV is compressible, spontaneous, phasic, competent and demonstrates normal competent, and demonstrates normal augmentation. augmentation. FV is compressible, spontaneous, phasic, FV is compressible, spontaneous, phasic, competent and demonstrates normal competent and demonstrates normal augmentation. augmentation. POP V is compressible, spontaneous, phasic, POP V is compressible, spontaneous, phasic, competent and demonstrates normal competent and demonstrates normal augmentation. augmentation. T/P Trunk is compressible. T/P Trunk is compressible. PTV is compressible. PTV is compressible. RT PerV is compressible. LT PerV is compressible. Procedure Exam performed portable in patient room. The exam was diagnostic. A preliminary report was called and/or faxed to [facility]. Interpretation Summary No evidence for acute deep venous thrombosis bilateral lower extremities with patent and compressible bilateral great saphenous veins. Ordering Physician: Elzbieta Thacker Referring Physician: No Espinoza Performed By: Vaishali Sweeney, ROBERTCS, RVT
--- NOTE | 2019-12-09 18:44 | EKG12_ITS ---
Test Reason : CP ADMISSION Blood Pressure : / mmHG Vent. Rate : 060 BPM Atrial Rate : 060 BPM P-R Int : 200 ms QRS Dur : 142 ms QT Int : 534 ms P-R-T Axes : 082 252 034 degrees QTc Int : 534 ms Normal sinus rhythm Non-specific intra-ventricular conduction block Abnormal ECG When compared with ECG of 09-DEC-2019 17:00, MANUAL COMPARISON REQUIRED, DATA IS UNCONFIRMED Confirmed by MYRIAM SULLIVAN ([id number]), web editor FITO PANDEY ([id number]) on 12/12/2019 9:54:59 AM Referred By: MARINO Confirmed By:MYRIAM SULLIVAN
--- NOTE | 2019-12-09 18:44 | US_ITS ---
STUDY: RENAL ULTRASOUND - COMPLETE REASON FOR EXAM: Female, 79 years old. YUDI TECHNIQUE: Ultrasound evaluation of the kidneys was performed with real-time and static campos-scale imaging. COMPARISON: Ultrasound abdomen 02/08/2012. FINDINGS: RIGHT KIDNEY: Normal location of the right kidney, which is normal in size. The right kidney measures 10.6 x 5.3 x 5.8 cm. There is a normal cortex of the right kidney. The renal cortex measures 1.4 cm. There is nonspecific lobulated pattern throughout the right kidney, likely congenital. There is no right renal mass or cyst. There are no right renal calculi. There is no right hydronephrosis. DISTAL RIGHT URETER: There is non-visualization of the distal right ureter. There is no demonstrated right ureterovesical junction calculus. There is no demonstrated right ureteral jet. LEFT KIDNEY: Normal location of the left kidney, which is normal in size. The left kidney measures 10.1 x 4.6 x 4.6 cm. There is a normal cortex of the left kidney. The renal cortex measures 1.5 cm. There are multiple anechoic structures within the left kidney, largest measuring 3.4 x 3.1 x 2.5 cm, exophytic and compatible with cysts. There are no left renal calculi. There is no left hydronephrosis. DISTAL LEFT URETER: There is non-visualization of the distal left ureter. There is no demonstrated left ureterovesical junction calculus. There is no demonstrated left ureteral jet. BLADDER: The urinary bladder is empty. A Hauser catheter is seen in place. There is suggestion of trace amount of ascites. US/Kidney and Bladder IMPRESSION: Left-sided multiple renal cysts as described above, otherwise unremarkable retroperitoneal ultrasound. Electronically Signed: Lia Estrada MD at 0:46 EST , Service support ,
[2019-12-09] MEDS: 0.9% Normal Saline 1,000 ML 100 ML IV (18:56)
--- NOTE | 2019-12-09 21:17 | NURSING ---
Notified Fabiola rueda sheriffs detective patient has order for PICC line. She states that they will do 2/5 and she will call with expected time of arrival.
[2019-12-09] MEDS: guaiFENesin 1,200 MG Tablet 1200 MG PO (21:27)
[2019-12-09] MEDS: Heparin Injection (Vial) 5,000 UNIT/ML VIAL 5000 UNIT SC (21:27)
[2019-12-09 21:35] LABS: Lactic Acid 4.2 mmol/L (0.4-1.9)
[2019-12-09 21:41] LABS: Bedside Glucose 148 mg/dL (70-110)
[2019-12-09] MEDS: Albuterol 2.5 MG/3 ML VIAL.NEB. INHALATION (22:20)
[2019-12-09] MEDS: 0.9% Saline Lock 10 ML Syringe IV (23:53)
[2019-12-10] VITALS (18 sets, daily range): BP systolic 78–121; BP diastolic 39–71; PULSE 60–78; RESP 12–26; TEMP 36.1–36.6; O2SAT 78–95
[2019-12-10 01:17] LABS: Reflex Lactate? Y
[2019-12-10] MEDS: Albuterol 2.5 MG/3 ML VIAL.NEB. INHALATION (01:38)
--- NOTE | 2019-12-10 01:45 | CPS ---
Pts. history shows COPD with known CO2 retention. Reported to have seen Pulmonary in the hospital last january. Pulse ox was reported to stay between 88-92% in the pulmonary physician's note during this visit. Will maintain pt. between 88-92% because of CO2 retention and this recommendation during her last visit. RN aware. Was 94% on 6L, so this AG SERVICE MANAGER weaned pt. to 5L. Pulse ox reading in fingers and toes are inaccurate. Pulse ox probe on ear lobe is more reliable.
[2019-12-10] MEDS: 0.9% Saline Lock 10 ML Syringe IV (02:10)
[2019-12-10 02:34] LABS: Absolute Lymphocyte Count 0.26 X10^3/uL (0.83-4.51); Absolute Neutrophil Count 9.1 X10^3/uL (2.0-7.7); Basophil# 0.01 X10^3/uL; Basophil% 0.1 % (0-1); Hemoglobin 15.6 g/dL (12.0-15.0); Lymphocyte # 0.26 X10^3/ul (4.0); Lymphocyte % 2.7 % (19-41); Mean Corp Hgb Conc 31.8 g/dL (32-36); Mean Corpuscular Volume 97.4 fL (81-99); Mean Platelet Vol. 11.4 fl (6.2-12.0); Monocyte# 0.18 X10^3/uL; Monocyte% 1.9 % (0-10); NRBC Flagged by Analyzer 0 % (0-5); Neutrophil % 94.8 % (47-70); POSITIVE DIFFERENTIAL YES; Platelet Count 143 K/mm3 (150-450); RBC Distribution Width CV 16.1 % (11.6-14.6); Red Blood Count 5.03 M/mm3 (4.2-5.4); White Blood Count 9.6 K/mm3 (4.4-11.0)
[2019-12-10 02:39] LABS: Differential Indicated SCAN CRITERIA MET
[2019-12-10 02:55] LABS: Lactic Acid 2.1 mmol/L (0.4-1.9)
[2019-12-10 03:00] LABS: ALB/GLOB Ratio 0.6 RATIO (0.9-2.4); AST(SGOT) 61 U/L (15-37); Alanine Aminotransfer ALT/SGPT 41 U/L (13-56); Albumin, Serum 2.3 g/dL (3.2-5.0); Alkaline Phosphatase 110 U/L (45-117); Anion Gap 14 (5-15); BUN 66 mg/dL (7-18); BUN/Creat Ratio 15.8 RATIO (10-20); Calcium,Total 6.7 mg/dL (8.5-10.1); Chloride 92 mmol/L (98-107); Creatinine, Serum 4.17 mg/dL (0.55-1.02); EST Glomerular Filtration Rate 11 mL/min (>60); Est Glom Filt Rate - Afr Amer 13 mL/min (>60); Estimated Creatinine Clearance 8.65 ml/min; Globulin 3.7 g/dL (2.2-4.2); Glucose 160 mg/dL (74-106); Potassium 4.5 mmol/L (3.5-5.1); Sodium Level 127 mmol/L (136-145)
[2019-12-10 03:53] LABS: Differential Comment SCANNED
[2019-12-10] MEDS: 0.9% Normal Saline 1,000 ML 100 ML IV (05:10)
[2019-12-10 06:41] LABS: Bedside Glucose 148 mg/dL (70-110)
[2019-12-10] MEDS: Ipratropium/Albuterol Sulfate 3 ML AMPUL.NEB INHALATION ×2 (07:17→11:41)
--- NOTE | 2019-12-10 08:44 | RAD_ITS ---
STUDY: X-RAY CHEST REASON FOR EXAM: Female, 79 years old. HYPOXIA. TECHNIQUE: Single AP portable view of the chest. COMPARISON: 12/09/2019 FINDINGS: Interval placement of right upper extremity PICC with tip of the catheter overlying the junction of right atrium and superior vena cava. Poor inspiration with some bibasilar atelectasis. There is no demonstrated pleural abnormality. There is moderate cardiac enlargement. Normal mediastinum and mellissa. Normal visualized pulmonary arteries. Normal visualized aortic arch and descending thoracic aorta. Normal visualized thoracic spine. Normal visualized ribs, clavicles, and shoulders. There is no demonstrated abnormality of the visualized soft tissue structures of the upper abdomen. RAD/Chest 1 View (Portable) IMPRESSION: 1. Interval placement of right upper extremity PICC with tip of the catheter overlying the junction of the right atrium and superior vena cava. 2. Poor inspiration with some bibasilar atelectasis. Electronically Signed: Will Delacruz MD at 9:27 EST Tel , Service support ,
[2019-12-10] MEDS: Ceftriaxone 1 GM/50 ML BAG IV (09:16)
[2019-12-10] MEDS: Clopidogrel Bisulfate 75 MG Tablet PO (09:18)
[2019-12-10] MEDS: guaiFENesin 1,200 MG Tablet 1200 MG PO (09:18)
[2019-12-10] MEDS: Heparin Injection (Vial) 5,000 UNIT/ML VIAL 5000 UNIT SC (09:18)
[2019-12-10] MEDS: Aspirin 81 MG TAB.CHEW PO (09:18)
[2019-12-10] MEDS: Folic Acid 1 MG Tablet PO (09:18)
--- NOTE | 2019-12-10 09:38 | NURSING ---
per pt, okay to given information to Elizabeth Martinez, caregiver.
[2019-12-10 09:51] LABS: Allen Test POS; Base Excess -9 mmol/L (-2 to +2); Bicarbonate 18.4 mmol/L (22-26); Blood Gas Specimen Type ART; O2 Delivery Device Nasal Can; PO2 43 mmHG (75-100); SITE L Brachial; SO2 69 % (95-99); Time Given 947; Total Carbon Dioxide 20 mmol/L; pCO2 45.2 mmHg (35-45); pH 7.22 (7.35-7.45)
--- NOTE | 2019-12-10 10:32 | NURSING ---
attempt made to obtain Spo2, tried 2 fingers, toe & ear and 80% is best reading. notified Rhonda Hamlin NP.
[2019-12-10 11:45] LABS: Bedside Glucose 260 mg/dL (70-110)
--- NOTE | 2019-12-10 12:02 | CASEMGMT ---
Pt to be placed on bipap at this time. This RN CM will attempt CM assessment later. SStaten RN CM
--- NOTE | 2019-12-10 12:03 | PN_ITS ---
<Rhonda Hamlin - Last Filed: 12/10/19 12:24> Subjective: Patient seen and examined. Denies shortness of breath. Denies chest pain. Oxygen saturation continues to be low and nursing staff having difficulty obtaining oxygen level with pulse ox. - Physical Exam Vitals/I&O's: Vital Signs Temp Pulse Resp BP Pulse Ox 97.0 F L 68 20 H 121/71 H 89 12/10/19 10:30 12/10/19 10:30 12/10/19 10:30 12/10/19 10:30 12/10/19 10:30 Oxygen Flow Rate (L/min) 9 Oxygen Delivery Method Nasal Cannula Weight: 126 lb 12.253 oz Body Mass Index (BMI) 22.4 Intake and Output for Last 24 Hours 12/08/19 12/09/19 12/10/19 23:59 23:59 23:59 Intake Total 2430.00 / 2430.00 1608.33 / 1608.33 Output Total 75 / 75 30 / 30 Balance 2355.00 / 2355.00 1578.33 / 1578.33 General: Alert, Oriented x3, Cooperative HEENT: Atraumatic, PERRLA, EOMI, Normocephalic Oral: Dry Mucosa Neck: Supple, No JVD, Negative Carotid Bruits Lungs: Clear to auscultation, Diminished Cardiovascular: Regular rate, Regular Rhythm, Normal S1, Normal S2, No murmurs Abdomen: Bowel Sounds Present, Soft, Non Tender, Non-Distended Extremities: No clubbing, No cyanosis, Capillary Refill Less than 3 Seconds, Edema - Bilateral lower extremity Skin: No rashes, No breakdown Musculoskeletal: No Tenderness to Palpation of Joints or Extremities Neurological: Cranial nerves II-XII grossly intact, Neuro grossly intact Psych/Mental Status: Normal Affect, Appropriate Microbiology Past 72 Hours 12/09/19 21:25 Mucosa - Nasopharyngeal Respiratory Panel (PCR) - Final 12/09/19 20:05 Urine Catheter - Hauser Legionella Antigen - Final 12/09/19 20:05 Urine Catheter - Hauser Streptococcus pneumoniae Antigen (M - Final 12/09/19 15:58 Mucosa - Nasopharyngeal Influenza Types A,B Direct FA (ZONIA) - Final Laboratory Results 12/09/19 14:55: WBC 9.3, RBC 5.61 H, Hgb 17.5 H, Hct 53.8 H, MCV 95.9, MCH 31.2, MCHC 32.5, RDW Std Deviation 57.2 H, RDW Coeff of Dipika 16.3 H, Plt Count 145 L, MPV 12.0, Immature Gran % (Auto) 0.600, Neut % (Auto) 86.3 H, Lymph % (Auto) 6.8 L, [place] % (Auto) 6.0, Eos % (Auto) 0.1, Baso % (Auto) 0.2, Absolute Neuts (auto) 8.0 H, Absolute Lymphs (auto) 0.63 L, Nucleated RBC % 0 12/09/19 14:55: Sodium Cancelled, Potassium Cancelled, Chloride Cancelled, Carbon Dioxide Cancelled, Anion Gap Cancelled, BUN Cancelled, Creatinine Cancelled, Estim Creat Clear Calc Cancelled, Est GFR (MDRD) Af Amer Cancelled, Est GFR (MDRD) Non-Af Cancelled, BUN/Creatinine Ratio Cancelled, Glucose Cancelled, Calcium Cancelled, Total Bilirubin Cancelled, AST Cancelled, ALT Cancelled, Alkaline Phosphatase Cancelled, Troponin I Cancelled, Total Protein Cancelled, Albumin Cancelled, Globulin Cancelled, Albumin/Globulin Ratio Cancelled 12/09/19 14:55: Lactic Acid Cancelled 12/09/19 15:38: Lactic Acid Cancelled 12/09/19 15:38: Sodium Cancelled, Potassium Cancelled, Chloride Cancelled, Carbon Dioxide Cancelled, Anion Gap Cancelled, BUN Cancelled, Creatinine Cancelled, Estim Creat Clear Calc Cancelled, Est GFR (MDRD) Af Amer Cancelled, Est GFR (MDRD) Non-Af Cancelled, BUN/Creatinine Ratio Cancelled, Glucose Cancelled, Calcium Cancelled, Total Bilirubin Cancelled, AST Cancelled, ALT Canc elled, Alkaline Phosphatase Cancelled, Troponin I Cancelled, Total Protein Cancelled, Albumin Cancelled, Globulin Cancelled, Albumin/Globulin Ratio Cancelled 12/09/19 15:53: Urine Color Yellow, Urine Clarity Sl. Cloudy, Urine pH 5.0, Ur Specific [place] 1.020, Urine Protein 100 H, Urine Glucose (UA) 250 H, Urine Ketones 5 H, Urine Occult Blood 10 H, Urine Nitrite Negative, Urine Bilirubin Negative, Urine Urobilinogen Normal, Ur Leukocyte Esterase 25 H, Urine RBC 0-5 SEEN, Urine WBC 0-5 SEEN, Ur Squamous Epith Cells 0-5 SEEN, Amorphous Sediment 1+ URATE, Urine Bacteria 0 SEEN, Urine Mucus 0 SEEN 12/09/19 16:25: Sodium 127 L, Potassium 4.9, Chloride 90 L, Carbon Dioxide 23.0, Anion Gap 14, BUN 64 H, Creatinine 4.20 H, Estim Creat Clear Calc 8.59, Est GFR (MDRD) Af Amer 13 L, Est GFR (MDRD) Non-Af 11 L, BUN/Creatinine Ratio 15.2, Glucose 64 L, Calcium 7.6 L, Total Bilirubin 0.80, AST 37, ALT 27, Alkaline Phosphatase 90, Troponin I 0.340 H, Total Protein 6.3 L, Albumin 2.5 L, Globulin 3.8, Albumin/Globulin Ratio 0.7 L 12/09/19 16:25: Lactic Acid 4.5 H* 12/09/19 20:33: Troponin I 0.345 H 12/09/19 20:33: Lactic Acid 4.2 H* 12/09/19 21:31: POC Glucose 148 H 12/09/19 23:55: Troponin I 0.426 H 12/10/19 02:05: WBC 9.6, RBC 5.03, Hgb 15.6 H, Hct 49.0 H, MCV 97.4, MCH 31.0, MCHC 31.8 L, RDW Std Deviation 58.0 H, RDW Coeff of Dipika 16.1 H, Plt Count 143 L, MPV 11.4, Immature Gran % (Auto) 0.500, Neut % (Auto) 94.8 H, Lymph % (Auto) 2.7 L, [place] % (Auto) 1.9, Eos % (Auto) 0.0, Baso % (Auto) 0.1, Absolute Neuts (auto) 9.1 H, Absolute Lymphs (auto) 0.26 L, Nucleated RBC % 0, Differential Comment SCANNED 12/10/19 02:05: Sodium 127 L, Potassium 4.5, Chloride 92 L, Carbon Dioxide 21.0, Anion Gap 14, BUN 66 H, Creatinine 4.17 H, Estim Creat Clear Calc 8.65, Est GFR (MDRD) Af Amer 13 L, Est GFR (MDRD) Non-Af 11 L, BUN/Creatinine Ratio 15.8, Glucose 160 H, Calcium 6.7 L, Total Bilirubin 0.70, AST 61 H, ALT 41, Alkaline Phosphatase 110, Total Protein 6.0 L, Albumin 2.3 L, Globulin 3.7, Albumin/Globulin Ratio 0.6 L 12/10/19 02:05: Troponin I 0.466 H 12/10/19 02:05: Lactic Acid 2.1 H* 12/10/19 06:33: POC Glucose 148 H 12/10/19 08:00: Troponin I 0.653 H* 12/10/19 09:47: Specimen Type ART, Sample Site L Brachial, pH 7.22 L, Bicarbonate Actual 18.4 L, POC Total CO2 20, Base Excess -9 L, O2 Saturation 69 L, ABG pCO2 45.2 H, ABG pO2 43 L, Patrick Test POS, O2 Delivery Device Nasal Can, Liter Flow 5.0, Blood Gas Notified Whom RN, Blood Gas Notified Time 947 12/10/19 11:42: POC Glucose 260 H Current Medications Acetaminophen (Tylenol) 650 mg PO Q6H PRN PRN PRN Reason: Pain Score 1-10/Temp > 100.7 F Albuterol Sulfate (Ventolin Aerosols) 2.5 mg INHALATION Q2H PRN PRN PRN Reason: SHORTNESS OF BREATH Last Admin: 12/10/19 01:38 Dose: 2.5 mg Documented by: Albuterol/Ipratropium (Duoneb) 3 ml INHALATION Q4H.RT [facility] Last Admin: 12/10/19 11:41 Dose: 3 ml Documented by: Aspirin (Aspirin, Baby) 81 mg PO DAILY@0800 [facility] Last Admin: 12/10/19 09:18 Dose: 81 mg Documented by: Clopidogrel Bisulfate (Plavix) 75 mg PO DAILY [facility] Last Admin: 12/10/19 09:18 Dose: 75 mg Documented by: Folic Acid (Folic Acid) 1 mg PO DAILY@0800 [facility] Last Admin: 12/10/19 09:18 Dose: 1 mg Documented by: Glucagon () 1 mg IM .X1 PRN PRN Reason: Hypoglycemia Guaifenesin (Mucinex) 1,200 mg PO BID [facility] Last Admin: 12/10/19 09:18 Dose: 1,200 mg Documented by: Heparin Sodium (Porcine) (Heparin Na) 5,000 unit SC Q12 ION Last Admin: 12/10/19 09:18 Dose: 5,000 unit Documented by: Sodium Chloride () 250 mls @ 15 mls/hr IV .[id number] PRN PRN Reason: Saline Flush Sodium Chloride () 250 mls @ 15 mls/hr IV .[id number] PRN PRN Reason: Additional IVPB Infusion Ceftriaxone Sodium (Rocephin) 1 gm in 50 mls @ 100 mls/hr IV Q24 ION Last Infusion: 12/10/19 09:59 Dose: Infused Documented by: Doxycycline Hyclate 100 mg/ (Dextrose) 260 mls @ 250 mls/hr IV Q12 ION Last Admin: 12/10/19 09:59 Dose: 250 mls/hr Documented by: Sodium Chloride () 1,000 mls @ 100 mls/hr IV .Q10H ION Last Infusion: 12/10/19 09:33 Dose: 0 mls/hr Documented by: Dextrose (Dextrose 10%-Water) 250 mls @ 999 mls/hr IV .Q16M PRN; Protocol PRN Reason: HYPOGLYCEMIA Sodium Chloride () 1,000 mls @ 60 mls/hr IV .[id number] ION Insulin Human Lispro (Humalog Kwikpen (Bkc)) 0 unit SC ACHS [facility]; Protocol Last Admin: 12/10/19 06:44 Dose: Not Given Documented by: Methylprednisolone (Solu-Medrol) 40 mg IV Q8 ION Nitroglycerin (Nitrostat) 0.4 mg SUBLINGUAL Q5M PRN PRN Reason: CHEST Ondansetron HCl (Zofran) 4 mg IV Q8H PRN PRN PRN Reason: NAUSEA Sodium Chloride () 10 - 40 ml IV UD PRN PRN Reason: SALINE FLUSH Last Admin: 12/10/19 02:10 Dose: 20 ml Documented by: Medical Necessity - Tobacco Use Smoking Status: Former smoker Assessment/Plan All Active Problems (Last Reviewed 06/04/19 @ 14:11 by Nayeli Young) History of myocardial infarction (Acute) Constipation (Resolved) Decreased stool caliber (Resolved) 1. Severe sepsis secondary to community-acquired left lower lobe pneumonia- chest x-ray admission with left lower lobe infiltrate. Urine negative for strep and Legionella. Obtain sputum culture. Albuterol and DuoNeb aerosols. IV azithromycin and IV Rocephin. 2. Acute on chronic combined hypoxic and hypercapnic respiratory failure secondary to #1 and acute exacerbation of chronic COPD-patient wears 3 L nasal cannula continuously at baseline. Continue supplement oxygen to maintain O2 at or above 90%. Initiate IV Solu-Medrol. Albuterol and DuoNeb aerosols. 3. Acute kidney injury on chronic kidney disease stage II-no significant improvement thus far with IV fluids, trend BMP. Hauser in place. Diuretic regimen on hold. Nephrology consult placed. Renal ultrasound unremarkable. 4. Lactic acidosis-improved, treatment per #1. 5. Hypovolemic hyponatremia-IV fluids, trend BMP. 6. Hypotension-improved with IV fluids, monitor BP. 7. Suspected viral gastroenteritis-patient reports nausea, vomiting and diarrhea x1 week. No recent antibiotic use. Check stool for C. difficile, enteric pathogen panel. IV fluids. PRN antiemetics. 8. NSTEMI-patient denies chest pain. Unclear etiology. Continue medical management with aspirin, Plavix, statin. Beta-mark, losartan on hold due to hypotension. If patient improves from respiratory and renal standpoint, may consider further cardiology evaluation. 9. Chronic diastolic CHF-Echocardiogram January 2019 demonstrated an EF of 65%, moderate global right ventricular systolic dysfunction, moderate tricuspid valve insufficiency, RVSP estimated to be 67 mmHg. Monitor for fluid overload given aggressive hydration due to renal failure. 10. Severe Pulmonary Hypertension with cor pulmonale- Echo with RVSP 67 mmHg as noted above. Follows with pulmonary medicine as outpatient. 11. Chronic polycythemia-secondary to chronic hypoxia. 12. Type 2 diabetes mellitus-hold oral regimen. Accu-Cheks with sliding scale insulin. 13. CAD status post PCI to RCA-continue aspirin, statin, Plavix. 14. Hypertension-hold BP regimen given hypotension. 15. Hyperlipidemia-continue statin. 16. Tobacco dependence-encouraged smoking cessation. 17. Moderate to severe protein calorie malnutrition-as evidenced by cachectic appearance, recent weight loss. Nutrition consult. DVT prophylaxis- heparin sc CODE STATUS: DNR CCA This patient was seen by Rhonda Hamlin NP-Melanie under the supervision of Dr. Johansen. <Carlyle Johansen - Last Filed: 12/10/19 13:10> - Physical Exam Vitals/I&O's: Vital Signs Temp Pulse Resp BP Pulse Ox 36.1 C L 77 24 H 121/71 H 90 12/10/19 10:30 12/10/19 11:57 12/10/19 11:57 12/10/19 10:30 12/10/19 11:57 Oxygen Flow Rate (L/min) 8 Oxygen Delivery Method Nasal Cannula Weight: 57.5 kg Body Mass Index (BMI) 22.4 Intake and Output for Last 24 Hours 12/08/19 12/09/19 12/10/19 23:59 23:59 23:59 Intake Total 2430.00 / 2430.00 1868.33 / 1868.33 Output Total 75 / 75 30 / 30 Balance 2355.00 / 2355.00 1838.33 / 1838.33 General: Alert, Cooperative, - - tachypneic. cachectic. HEENT: Atraumatic, Normocephalic Neck: No Nodes, Trachea Midline Lungs: Diminished, - - coarse breath sounds bilaterally. Cardiovascular: Regular rate, Regular Rhythm, Normal S1, Normal S2, No murmurs Abdomen: Bowel Sounds Present, Soft, Non Tender, Non-Distended Extremities: Edema Skin: No rashes, No breakdown Psych/Mental Status: Normal Affect, Appropriate Microbiology Past 72 Hours 12/10/19 09:55 Stool C. difficile DNA Amplification - Final 12/09/19 21:25 Mucosa - Nasopharyngeal Respiratory Panel (PCR) - Final 12/09/19 20:05 Urine Catheter - Hauser Legionella Antigen - Final 12/09/19 20:05 Urine Catheter - Hauser Streptococcus pneumoniae Antigen (M - Final 12/09/19 15:58 Mucosa - Nasopharyngeal Influenza Types A,B Direct FA (ZONIA) - Final Laboratory Results 12/09/19 14:55: WBC 9.3, RBC 5.61 H, Hgb 17.5 H, Hct 53.8 H, MCV 95.9, MCH 31.2, MCHC 32.5, RDW Std Deviation 57.2 H, RDW Coeff of Dipika 16.3 H, Plt Count 145 L, MPV 12.0, Immature Gran % (Auto) 0.600, Neut % (Auto) 86.3 H, Lymph % (Auto) 6.8 L, [place] % (Auto) 6.0, Eos % (Auto) 0.1, Baso % (Auto) 0.2, Absolute Neuts (auto) 8.0 H, Absolute Lymphs (auto) 0.63 L, Nucleated RBC % 0 12/09/19 14:55: Sodium Cancelled, Potassium Cancelled, Chloride Cancelled, Carbon Dioxide Cancelled, Anion Gap Cancelled, BUN Cancelled, Creatinine Cancelled, Estim Creat Clear Calc Cancelled, Est GFR (MDRD) Af Amer Cancelled, Est GFR (MDRD) Non-Af Cancelled, BUN/Creatinine Ratio Cancelled, Glucose Cancelled, Calcium Cancelled, Total Bilirubin Cancelled, AST Cancelled, ALT Cancelled, Alkaline Phosphatase Cancelled, Troponin I Cancelled, Total Protein Cancelled, Albumin Cancelled, Globulin Cancelled, Albumin/Globulin Ratio Cancelled 12/09/19 14:55: Lactic Acid Cancelled 12/09/19 15:38: Lactic Acid Cancelled 12/09/19 15:38: Sodium Cancelled, Potassium Cancelled, Chloride Cancelled, Carbon Dioxide Cancelled, Anion Gap Cancelled, BUN Cancelled, Creatinine Cancelled, Estim Creat Clear Calc Cancelled, Est GFR (MDRD) Af Amer Cancelled, Est GFR (MDRD) Non-Af Cancelled, BUN/Creatinine Ratio Cancelled, Glucose Cancelled, Calcium Cancelled, Total Bilirubin Cancelled, AST Cancelled, ALT Cancelled, Alkaline Phosphatase Cancelled, Troponin I Cancelled, Total Protein Cancelled, Albumin Cancelled, Globulin Cancelled, Albumin/Globulin Ratio Cancelled 12/09/19 15:53: Urine Color Yellow, Urine Clarity Sl. Cloudy, Urine pH 5.0, Ur Specific [place] 1.020, Urine Protein 100 H, Urine Glucose (UA) 250 H, Urine Ketones 5 H, Urine Occult Blood 10 H, Urine Nitrite Negative, Urine Bilirubin Negative, Urine Urobilinogen Normal, Ur Leukocyte Esterase 25 H, Urine RBC 0-5 SEEN, Urine WBC 0-5 SEEN, Ur Squamous Epith Cells 0-5 SEEN, Amorphous Sediment 1+ URATE, Urine Bacteria 0 SEEN, Urine Mucus 0 SEEN 12/09/19 16:25: Sodium 127 L, Potassium 4.9, Chloride 90 L, Carbon Dioxide 23.0, Anion Gap 14, BUN 64 H, Creatinine 4.20 H, Estim Creat Clear Calc 8.59, Est GFR (MDRD) Af Amer 13 L, Est GFR (MDRD) Non-Af 11 L, BUN/Creatinine Ratio 15.2, Glucose 64 L, Calcium 7.6 L, Total Bilirubin 0.80, AST 37, ALT 27, Alkaline Phosphatase 90, Troponin I 0.340 H, Total Protein 6.3 L, Albumin 2.5 L, Globulin 3.8, Albumin/Globulin Ratio 0.7 L 12/09/19 16:25: Lactic Acid 4.5 H* 12/09/19 20:33: Troponin I 0.345 H 12/09/19 20:33: Lactic Acid 4.2 H* 12/09/19 21:31: POC Glucose 148 H 12/09/19 23:55: Troponin I 0.426 H 12/10/19 02:05: WBC 9.6, RBC 5.03, Hgb 15.6 H, Hct 49.0 H, MCV 97.4, MCH 31.0, MCHC 31.8 L, RDW Std Deviation 58.0 H, RDW Coeff of Dipika 16.1 H, Plt Count 143 L, MPV 11.4, Immature Gran % (Auto) 0.500, Neut % (Auto) 94.8 H, Lymph % (Auto) 2.7 L, [place] % (Auto) 1.9, Eos % (Auto) 0.0, Baso % (Auto) 0.1, Absolute Neuts (auto) 9.1 H, Absolute Lymphs (auto) 0.26 L, Nucleated RBC % 0, Differential Comment SCANNED 12/10/19 02:05: Sodium 127 L, Potassium 4.5, Chloride 92 L, Carbon Dioxide 21.0, Anion Gap 14, BUN 66 H, Creatinine 4.17 H, Estim Creat Clear Calc 8.65, Est GFR (MDRD) Af Amer 13 L, Est GFR (MDRD) Non-Af 11 L, BUN/Creatinine Ratio 15.8, Glucose 160 H, Calcium 6.7 L, Total Bilirubin 0.70, AST 61 H, ALT 41, Alkaline Phosphatase 110, Total Protein 6.0 L, Albumin 2.3 L, Globulin 3.7, Albumin/G lobulin Ratio 0.6 L 12/10/19 02:05: Troponin I 0.466 H 12/10/19 02:05: Lactic Acid 2.1 H* 12/10/19 06:33: POC Glucose 148 H 12/10/19 08:00: Troponin I 0.653 H* 12/10/19 09:47: Specimen Type ART, Sample Site L Brachial, pH 7.22 L, Bicarbonate Actual 18.4 L, POC Total CO2 20, Base Excess -9 L, O2 Saturation 69 L, ABG pCO2 45.2 H, ABG pO2 43 L, Patrick Test POS, O2 Delivery Device Nasal Can, Liter Flow 5.0, Blood Gas Notified Whom RN, Blood Gas Notified Time 947 12/10/19 11:42: POC Glucose 260 H Current Medications Acetaminophen (Tylenol) 650 mg PO Q6H PRN PRN PRN Reason: Pain Score 1-10/Temp > 100.7 F Albuterol Sulfate (Ventolin Aerosols) 2.5 mg INHALATION Q2H PRN PRN PRN Reason: SHORTNESS OF BREATH Last Admin: 12/10/19 01:38 Dose: 2.5 mg Documented by: Albuterol/Ipratropium (Duoneb) 3 ml INHALATION Q4H.RT [facility] Last Admin: 12/10/19 11:41 Dose: 3 ml Documented by: Aspirin (Aspirin, Baby) 81 mg PO DAILY@0800 [facility] Last Admin: 12/10/19 09:18 Dose: 81 mg Documented by: Clopidogrel Bisulfate (Plavix) 75 mg PO DAILY [facility] Last Admin: 12/10/19 09:18 Dose: 75 mg Documented by: Folic Acid (Folic Acid) 1 mg PO DAILY@0800 [facility] Last Admin: 12/10/19 09:18 Dose: 1 mg Documented by: Glucagon () 1 mg IM .X1 PRN PRN Reason: Hypoglycemia Guaifenesin (Mucinex) 1,200 mg PO BID [facility] Last Admin: 12/10/19 09:18 Dose: 1,200 mg Documented by: Heparin Sodium (Porcine) (Heparin Na) 5,000 unit SC Q12 [facility] Last Admin: 12/10/19 09:18 Dose: 5,000 unit Documented by: Sodium Chloride () 250 mls @ 15 mls/hr IV .[id number] PRN PRN Reason: Saline Flush Sodium Chloride () 250 mls @ 15 mls/hr IV .[id number] PRN PRN Reason: Additional IVPB Infusion Ceftriaxone Sodium (Rocephin) 1 gm in 50 mls @ 100 mls/hr IV Q24 [facility] Last Infusion: 12/10/19 09:59 Dose: Infused Documented by: Doxycycline Hyclate 100 mg/ (Dextrose) 260 mls @ 250 mls/hr IV Q12 [facility] Last Infusion: 12/10/19 12:03 Dose: Infused Documented by: Dextrose (Dextrose 10%-Water) 250 mls @ 999 mls/hr IV .Q16M PRN; Protocol PRN Reason: HYPOGLYCEMIA Sodium Chloride () 1,000 mls @ 60 mls/hr IV .[id number] ION Insulin Human Lispro (Humalog Kwikpen (Bkc)) 0 unit SC ACHS [facility]; Protocol Last Admin: 12/10/19 06:44 Dose: Not Given Documented by: Methylprednisolone (Solu-Medrol) 40 mg IV Q8 ION Nitroglycerin (Nitrostat) 0.4 mg SUBLINGUAL Q5M PRN PRN Reason: CHEST Ondansetron HCl (Zofran) 4 mg IV Q8H PRN PRN PRN Reason: NAUSEA Sodium Chloride () 10 - 40 ml IV UD PRN PRN Reason: SALINE FLUSH Last Admin: 12/10/19 02:10 Dose: 20 ml Documented by: Assessment/Plan Patient seen and examined independently. Data reviewed. I agree with the above note by the nurse practitioner. Assessement 1. severe sepsis 2. acute on chronic hypoxic and hypercapnic respiratory failure 3. acute pneumococcal pneumonia, suspected 4. YUDI, suspect prerenal 5. NSTEMI, suspect type II (demand) 6. 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 Multiple medical comorbidities: severe pulmonary HTN, HFpEF, polycythemia, DM2, CAD, moderate to sever protein calorie malnutrition Plan: 1. Patient did not tolerate BiPAP. Will continue with High-flow oxygen. 2. Resume IV methylprednisolone 3. Continue BDs 4. Continue CTX and azithromycin 5. Check urine studies 6. IVF 7. VTE proph w SQ heparin 8. Confirmed code status: [id number], ok for intubation 9. Consider hospice if worsens. Prognosis guarded. Code Visit Inpatient E&M: 00250 [facility] Hosp L3
--- NOTE | 2019-12-10 12:21 | CPS ---
Pt says she feels like she is smothering, RN took BIPAP off and placed back on O2 @10lpm. (R.T. already tried different pressures to help pt feel comfortable)
--- NOTE | 2019-12-10 13:55 | CASEMGMT ---
HOSE HANDLER spoke with patient and her daughter and they agreed to Hospice. SW called Hospice and made a referral. SW spoke with Paulina a few minutes later and their appt is 3p. SW notified RN, propellant charge loader, and HOSE HANDLER. Diane ZARAGOZA MSW
[2019-12-10 14:16] LABS: Urine Sodium 46 mmol/L (Not Establ.)
[2019-12-10 14:20] LABS: Urea Nitrogen, Urine 144 mg/dL (NO RANGE EST.)
--- NOTE | 2019-12-10 14:52 | CON.PCM_ITS ---
Consultation - Renal 12/10/19 PCP/ Referring MD: Requesting physician: [] Primary care physician: No Espinoza DO Reason for Consultation:: anuric YUDI - History of Present Illness History of Present Illness: The patient is a 79 year old F who presents to the emergency room due to malaise and generalized weakness. Patient reports falling at home a week ago with progressive weakness. She did not want to seek medical attention until yesterday. She has severe COPD with cor pulmonale on home oxygen. She has a chronic cough. She stopped smoking a week ago. Creatinine on admission 4.1. Received iv fluid bolus for hypotension with minimal urine output and little to no improvement in kidney fxn. She has lightheadedness, near syncope. She reports having diarrhea. Denies abdominal pain but admits to nausea, dry heaves with poor appetite. She has not urinated for 4 days. Patient denies exposure to sick contacts. Denies fever or chills. Denies recent antibiotic use. She denies chest pain. She has a history of CAD s/p [place] x2. Hospice has been consulted. She is DNR no resuscitation. Refuses BIPAP mask. Pt dtr at bedside. - Allergies Allergies: Allergies hydrocodone bitartrate [From Vicodin] Adverse Reaction (Verified 12/09/19 18:47) Nausea Sulfa (Sulfonamide Antibiotics) Adverse Reaction (Verified 12/09/19 18:47) Nausea/Vom/Diarrhea - Current Medications Current Medications: Current Medications Acetaminophen (Tylenol) 650 mg PO Q6H PRN PRN PRN Reason: Pain Score 1-10/Temp > 100.7 F Albuterol Sulfate (Ventolin Aerosols) 2.5 mg INHALATION Q2H PRN PRN PRN Reason: SHORTNESS OF BREATH Last Admin: 12/10/19 01:38 Dose: 2.5 mg Documented by: Albuterol/Ipratropium (Duoneb) 3 ml INHALATION Q4H.RT [facility] Last Admin: 12/10/19 11:41 Dose: 3 ml Documented by: Aspirin (Aspirin, Baby) 81 mg PO DAILY@0800 [facility] Last Admin: 12/10/19 09:18 Dose: 81 mg Documented by: Clopidogrel Bisulfate (Plavix) 75 mg PO DAILY [facility] Last Admin: 12/10/19 09:18 Dose: 75 mg Documented by: Folic Acid (Folic Acid) 1 mg PO DAILY@0800 [facility] Last Admin: 12/10/19 09:18 Dose: 1 mg Documented by: Glucagon () 1 mg IM .X1 PRN PRN Reason: Hypoglycemia Guaifenesin (Mucinex) 1,200 mg PO BID [facility] Last Admin: 12/10/19 09:18 Dose: 1,200 mg Documented by: Heparin Sodium (Porcine) (Heparin Na) 5,000 unit SC Q12 [facility] Last Admin: 12/10/19 09:18 Dose: 5,000 unit Documented by: Sodium Chloride () 250 mls @ 15 mls/hr IV .[id number] PRN PRN Reason: Saline Flush Sodium Chloride () 250 mls @ 15 mls/hr IV .[id number] PRN PRN Reason: Additional IVPB Infusion Ceftriaxone Sodium (Rocephin) 1 gm in 50 mls @ 100 mls/hr IV Q24 [facility] Last Infusion: 12/10/19 09:59 Dose: Infused Documented by: Doxycycline Hyclate 100 mg/ (Dextrose) 260 mls @ 250 mls/hr IV Q12 [facility] Last Infusion: 12/10/19 12:03 Dose: Infused Documented by: Dextrose (Dextrose 10%-Water) 250 mls @ 999 mls/hr IV .Q16M PRN; Protocol PRN Reason: HYPOGLYCEMIA Sodium Chloride () 1,000 mls @ 60 mls/hr IV .[id number] [facility] Insulin Human Lispro (Humalog Kwikpen (Bkc)) 0 unit SC ACHS [facility]; Protocol Last Admin: 12/10/19 13:42 Dose: Not Given Documented by: Methylprednisolone (Solu-Medrol) 40 mg IV Q8 [facility] Last Admin: 12/10/19 13:40 Dose: 40 mg Documented by: Nitroglycerin (Nitrostat) 0.4 mg SUBLINGUAL Q5M PRN PRN Reason: CHEST Ondansetron HCl (Zofran) 4 mg IV Q8H PRN PRN PRN Reason: NAUSEA Sodium Chloride () 10 - 40 ml IV UD PRN PRN Reason: SALINE FLUSH Last Admin: 12/10/19 02:10 Dose: 20 ml Documented by: - Past Medical History Past Medical History (Chronic Problems): Chronic Problems (Last Reviewed 06/04/19 @ 14:11 by Nayeli Young) Pure hypercholesterolemia (Chronic) Chronic diastolic heart failure (Chronic) Respiratory failure (Chronic) Pulmonary hypertension (Chronic) RVSP 67 mmHg, likely WHO group 3 Tobacco abuse (Chronic) Essential hypertension (Chronic) Atherosclerotic heart disease of [place] coronary artery without angina pectoris (Chronic) Presence of stent in coronary artery (Chronic ~03/2002) PTCA/Stent of RCA 03/2002 COPD (chronic obstructive pulmonary disease) (Chronic) Chronic back pain (Chronic) Diabetes mellitus, type II (Chronic) - Past Surgical History Surgical History: cataract, hysterectomy, - - Coronary artery stent placement - Social History Smoking Status: Former smoker Alcohol: None Drugs: None - Family History Maternal Family History: Family History (Last Reviewed 12/09/19 @ 17:04 by GRACY Mon) Mother CAD (coronary artery disease) Myocardial infarction, Onset Age: 50 Diabetes Sister CAD (coronary artery disease) History of coronary artery bypass surgery Sister CAD (coronary artery disease) Sister History of coronary artery bypass surgery Other CVA (cerebral vascular accident) Cancer Hypertension History Items: Diabetes Paternal Family History: Family History (Last Reviewed 12/09/19 @ 17:04 by GRACY Mon) Mother CAD (coronary artery disease) Myocardial infarction, Onset Age: 50 Diabetes Sister CAD (coronary artery disease) History of coronary artery bypass surgery Sister CAD (coronary artery disease) Sister History of coronary artery bypass surgery Other CVA (cerebral vascular accident) Cancer Hypertension History Items: Cancer - Father w/ prostate CA. Review of Systems Constitutional: Reports: Anorexia, Weakness, Fatigue, - - recent fall. Denies: Chills, Fever Eyes: Denies: Vision Change Cardiovascular: Reports: Light Headedness. Denies: Chest Pain, Syncope - Physical Exam Vitals/I&O's: Vital Signs Temp Pulse Resp BP Pulse Ox 97.0 F L 78 24 H 121/71 H 89 12/10/19 10:30 12/10/19 13:02 12/10/19 13:02 12/10/19 10:30 12/10/19 13:02 Oxygen Flow Rate (L/min) 8 Oxygen Delivery Method Nasal Cannula Weight: 57.5 kg Body Mass Index (BMI) 22.4 Intake and Output for Last 24 Hours 12/08/19 12/09/19 12/10/19 23:59 23:59 23:59 Intake Total 2430.00 / 2430.00 1868.33 / 1868.33 Output Total 75 / 75 30 / 30 Balance 2355.00 / 2355.00 1838.33 / 1838.33 General: Alert, Oriented x3, Cooperative, - - mild dyspnea, thin cachectic HEENT: PERRLA, EOMI Oral: Dry Mucosa Neck: Supple Lungs: Rales - dry crackles diffuse, Rhonchi Abdomen: Bowel Sounds Present, Soft, Non Tender Extremities: No edema Musculoskeletal: Muscle Wasting Neurological: Cranial nerves II-XII grossly intact, - - no tremor Psych/Mental Status: Normal Affect, Appropriate, Alert and oriented to time, place, person, mood and affect Microbiology Past 72 Hours 12/10/19 09:55 Stool Enteric Bacteriology - Final 12/10/19 09:55 Stool C. difficile DNA Amplification - Final 12/09/19 21:25 Mucosa - Nasopharyngeal Respiratory Panel (PCR) - Final 12/09/19 20:05 Urine Catheter - Hauser Legionella Antigen - Final 12/09/19 20:05 Urine Catheter - Hauser Streptococcus pneumoniae Antigen (M - Final 12/09/19 15:58 Mucosa - Nasopharyngeal Influenza Types A,B Direct FA (ZONIA) - Final Laboratory Results 12/09/19 14:55: WBC 9.3, RBC 5.61 H, Hgb 17.5 H, Hct 53.8 H, MCV 95.9, MCH 31.2, MCHC 32.5, RDW Std Deviation 57.2 H, RDW Coeff of Dipika 16.3 H, Plt Count 145 L, MPV 12.0, Immature Gran % (Auto) 0.600, Neut % (Auto) 86.3 H, Lymph % (Auto) 6.8 L, Sharkey % (Auto) 6.0, Eos % (Auto) 0.1, Baso % (Auto) 0.2, Absolute Neuts (auto) 8.0 H, Absolute Lymphs (auto) 0.63 L, Nucleated RBC % 0 12/09/19 14:55: Sodium Cancelled, Potassium Cancelled, Chloride Cancelled, Carbon Dioxide Cancelled, Anion Gap Cancelled, BUN Cancelled, Creatinine Cancelled, Estim Creat Clear Calc Cancelled, Est GFR (MDRD) Af Amer Cancelled, Est GFR (MDRD) Non-Af Cancelled, BUN/Creatinine Ratio Cancelled, Glucose Cancelled, Calcium Cancelled, Total Bilirubin Cancelled, AST Cancelled, ALT Cancelled, Alkaline Phosphatase Cancelled, Troponin I Cancelled, Total Protein Cancelled, Albumin Cancelled, Globulin Cancelled, Albumin/Globulin Ratio Cancelled 12/09/19 14:55: Lactic Acid Cancelled 12/09/19 15:38: Lactic Acid Cancelled 12/09/19 15:38: Sodium Cancelled, Potassium Cancelled, Chloride Cancelled, Carbon Dioxide Cancelled, Anion Gap Cancelled, BUN Cancelled, Creatinine Cancelled, Estim Creat Clear Calc Cancelled, Est GFR (MDRD) Af Amer Cancelled, Est GFR (MDRD) Non-Af Cancelled, BUN/Creatinine Ratio Cancelled, Glucose Cancelled, Calcium Cancelled, Total Bilirubin Cancelled, AST Cancelled, ALT Cancelled, Alkaline Phosphatase Cancelled, Troponin I Cancelled, Total Protein Cancelled, Albumin Cancelled, Globulin Cancelled, Albumin/Globulin Ratio Cancelled 12/09/19 15:53: Urine Color Yellow, Urine Clarity Sl. Cloudy, Urine pH 5.0, Ur Specific [place] 1.020, Urine Protein 100 H, Urine Glucose (UA) 250 H, Urine Ketones 5 H, Urine Occult Blood 10 H, Urine Nitrite Negative, Urine Bilirubin Negative, Urine Urobilinogen Normal, Ur Leukocyte Esterase 25 H, Urine RBC 0-5 SEEN, Urine WBC 0-5 SEEN, Ur Squamous Epith Cells 0-5 SEEN, Amorphous Sediment 1+ URATE, Urine Bacteria 0 SEEN, Urine Mucus 0 SEEN 12/09/19 16:25: Sodium 127 L, Potassium 4.9, Chloride 90 L, Carbon Dioxide 23.0, Anion Gap 14, BUN 64 H, Creatinine 4.20 H, Estim Creat Clear Calc 8.59, Est GFR (MDRD) Af Amer 13 L, Est GFR (MDRD) Non-Af 11 L, BUN/Creatinine Ratio 15.2, Glucose 64 L, Calcium 7.6 L, Total Bilirubin 0.80, AST 37, ALT 27, Alkaline Phosphatase 90, Troponin I 0.340 H, Total Protein 6.3 L, Albumin 2.5 L, Globulin 3.8, Albumin/Globulin Ratio 0.7 L 12/09/19 16:25: Lactic Acid 4.5 H* 12/09/19 20:33: Troponin I 0.345 H 12/09/19 20:33: Lactic Acid 4.2 H* 12/09/19 21:31: POC Glucose 148 H 12/09/19 23:55: Troponin I 0.426 H 12/10/19 02:05: WBC 9.6, RBC 5.03, Hgb 15.6 H, Hct 49.0 H, MCV 97.4, MCH 31.0, MCHC 31.8 L, RDW Std Deviation 58.0 H, RDW Coeff of [place]ika 16.1 H, Plt Count 143 L, MPV 11.4, Immature Gran % (Auto) 0.500, Neut % (Auto) 94.8 H, Lymph % (Auto) 2.7 L, Sharkey % (Auto) 1.9, Eos % (Auto) 0.0, Baso % (Auto) 0.1, Absolute Neuts (auto) 9.1 H, Absolute Lymphs (auto) 0.26 L, Nucleated RBC % 0, Differential Comment SCANNED 12/10/19 02:05: Sodium 127 L, Potassium 4.5, Chloride 92 L, Carbon Dioxide 21.0, Anion Gap 14, BUN 66 H, Creatinine 4.17 H, Estim Creat Clear Calc 8.65, Est GFR (MDRD) Af Amer 13 L, Est GFR (MDRD) Non-Af 11 L, BUN/Creatinine Ratio 15.8, Glucose 160 H, Calcium 6.7 L, Total Bilirubin 0.70, AST 61 H, ALT 41, Alkaline Phosphatase 110, Total Protein 6.0 L, Albumin 2.3 L, Globulin 3.7, Albumin/Globulin Ratio 0.6 L 12/10/19 02:05: Troponin I 0.466 H 12/10/19 02:05: Lactic Acid 2.1 H* 12/10/19 06:33: POC Glucose 148 H 12/10/19 08:00: Troponin I 0.653 H* 12/10/19 09:47: Specimen Type ART, Sample Site L Brachial, pH 7.22 L, Bicarbonate Actual 18.4 L, POC Total CO2 20, Base Excess -9 L, O2 Saturation 69 L, ABG pCO2 45.2 H, ABG pO2 43 L, Patrick Test POS, O2 Delivery Device Nasal Can, Liter Flow 5.0, Blood Gas Notified Whom RN, Blood Gas Notified Time 947 12/10/19 11:42: POC Glucose 260 H 12/10/19 13:50: Urine Urea Nitrogen 144 12/10/19 13:50: Urine Creatinine 71.20 12/10/19 13:50: U Random Total Protein Pending 12/10/19 13:50: Ur Random Sodium 46 Clinical Impression(s) from Imaging Studies Chest X-Ray 12/09/19 14:19 IMPRESSION: Left lower lobe infiltrate. Electronically Signed: Larry Epstein, at 17:05 EST Tel , Service support , Renal Ultrasound 12/09/19 18:44 IMPRESSION: Left-sided multiple renal cysts as described above, otherwise unremarkable retroperitoneal ultrasound. Electronically Signed: Lia Estrada MD at 0:46 EST , Service support , Chest X-Ray 12/10/19 08:44 IMPRESSION: 1. Interval placement of right upper extremity PICC with tip of the catheter overlying the junction of the right atrium and superior vena cava. 2. Poor inspiration with some bibasilar atelectasis. Electronically Signed: Will Delacruz MD at 9:27 EST Tel , Service support , Current Medications Acetaminophen (Tylenol) 650 mg PO Q6H PRN PRN PRN Reason: Pain Score 1-10/Temp > 100.7 F Albuterol Sulfate (Ventolin Aerosols) 2.5 mg INHALATION Q2H PRN PRN PRN Reason: SHORTNESS OF BREATH Last Admin: 12/10/19 01:38 Dose: 2.5 mg Documented by: Albuterol/Ipratropium (Duoneb) 3 ml INHALATION Q4H.RT [facility] Last Admin: 12/10/19 11:41 Dose: 3 ml Documented by: Aspirin (Aspirin, Baby) 81 mg PO DAILY@0800 [facility] Last Admin: 12/10/19 09:18 Dose: 81 mg Documented by: Clopidogrel Bisulfate (Plavix) 75 mg PO DAILY [facility] Last Admin: 12/10/19 09:18 Dose: 75 mg Documented by: Folic Acid (Folic Acid) 1 mg PO DAILY@0800 [facility] Last Admin: 12/10/19 09:18 Dose: 1 mg Documented by: Glucagon () 1 mg IM .X1 PRN PRN Reason: Hypoglycemia Guaifenesin (Mucinex) 1,200 mg PO BID [facility] Last Admin: 12/10/19 09:18 Dose: 1,200 mg Documented by: Heparin Sodium (Porcine) (Heparin Na) 5,000 unit SC Q12 [facility] Last Admin: 12/10/19 09:18 Dose: 5,000 unit Documented by: Sodium Chloride () 250 mls @ 15 mls/hr IV .[id number] PRN PRN Reason: Saline Flush Sodium Chloride () 250 mls @ 15 mls/hr IV .[id number] PRN PRN Reason: Additional IVPB Infusion Ceftriaxone Sodium (Rocephin) 1 gm in 50 mls @ 100 mls/hr IV Q24 [facility] Last Infusion: 12/10/19 09:59 Dose: Infused Documented by: Doxycycline Hyclate 100 mg/ (Dextrose) 260 mls @ 250 mls/hr IV Q12 [facility] Last Infusion: 12/10/19 12:03 Dose: Infused Documented by: Dextrose (Dextrose 10%-Water) 250 mls @ 999 mls/hr IV .Q16M PRN; Protocol PRN Reason: HYPOGLYCEMIA Sodium Chloride () 1,000 mls @ 60 mls/hr IV .[id number] [facility] Insulin Human Lispro (Humalog Kwikpen (Bkc)) 0 unit SC ACHS [facility]; Protocol Last Admin: 12/10/19 13:42 Dose: Not Given Documented by: Methylprednisolone (Solu-Medrol) 40 mg IV Q8 [facility] Last Admin: 12/10/19 13:40 Dose: 40 mg Documented by: Nitroglycerin (Nitrostat) 0.4 mg SUBLINGUAL Q5M PRN PRN Reason: CHEST Ondansetron HCl (Zofran) 4 mg IV Q8H PRN PRN PRN Reason: NAUSEA Sodium Chloride () 10 - 40 ml IV UD PRN PRN Reason: SALINE FLUSH Last Admin: 12/10/19 02:10 Dose: 20 ml Documented by: Assessment/Plan All Active Problems (Last Reviewed 06/04/19 @ 14:11 by Nayeli Young) History of myocardial infarction (Acute) Constipation (Resolved) Decreased stool caliber (Resolved) 1. YUDI anuric with rising creatinine due to ischemic ATN from hypotension. Creatinine 1.36 in February 2019 to 4.2 on admit, 4.1 today. Remains anuric despite iv fluids. Pt is a poor dialysis candidate due to hypotension, poor respiratory status, comorbid conditions. Overall prognosis poor. Hospice has been consulted. 2. Severe COPD with cor pulmonale on oxygen at home. Refuses BIPAP, no CPR. Hospice consulted. Remains hypoxic, dyspneic 3. Weakness s/p fall 4. CAD s/p stent, [place] x2 5. Tobacco abuse 6. Hypotension persists. Blood cx no growth 7. Diarrhea cx negative 8. Cough resp panel negative. DW primary service
[2019-12-10 15:04] LABS: Protein, Urine (Random) 818.5 mg/dL (<11.9)
--- NOTE | 2019-12-10 15:35 | DS.PCM_ITS ---
<Rhonda Hamlin - Last Filed: 12/10/19 15:52> Discharge Date and Diagnosis Date of Admission: 12/09/19 Date of Discharge: 12/10/19 - Primary Discharge Diagnosis 1. Severe sepsis secondary to community-acquired left lower lobe pneumonia 2. Acute on chronic combined hypoxic and hypercapnic respiratory failure secondary to #1 and acute exacerbation of chronic COPD 3. Acute kidney injury on chronic kidney disease stage II 4. Lactic acidosis 5. Hypovolemic hyponatremia 6. Hypotension 7. Suspected viral gastroenteritis 8. NSTEMI 9. Chronic diastolic CHF 10. Severe Pulmonary Hypertension with cor pulmonale 11. Chronic polycythemia 12. Type 2 diabetes mellitus 13. CAD status post PCI to RCA 14. Hypertension 15. Hyperlipidemia 16. Tobacco dependence 17. Moderate to severe protein calorie malnutrition - Secondary Discharge Diagnosis Chronic Problems (Last Reviewed 06/04/19 @ 14:11 by Nayeli Young) Pure hypercholesterolemia (Chronic) Chronic diastolic heart failure (Chronic) Respiratory failure (Chronic) Pulmonary hypertension (Chronic) RVSP 67 mmHg, likely WHO group 3 Tobacco abuse (Chronic) Essential hypertension (Chronic) Atherosclerotic heart disease of [place] coronary artery without angina pectoris (Chronic) Presence of stent in coronary artery (Chronic ~03/2002) PTCA/Stent of RCA 03/2002 COPD (chronic obstructive pulmonary disease) (Chronic) Chronic back pain (Chronic) Diabetes mellitus, type II (Chronic) Hospital Course and Treatment Imaging Results: Diagnostic Data Renal Ultrasound 12/09/19 18:44 IMPRESSION: Left-sided multiple renal cysts as described above, otherwise unremarkable retroperitoneal ultrasound. Electronically Signed: Lia Estrada MD at 0:46 EST , Service support , Chest X-Ray 12/10/19 08:44 IMPRESSION: 1. Interval placement of right upper extremity PICC with tip of the catheter overlying the junction of the right atrium and superior vena cava. 2. Poor inspiration with some bibasilar atelectasis. Electronically Signed: Will Delacruz MD at 9:27 EST Tel , Service support , Dr. Walton- Nephrology Operations: None Summary of Care Provided: The patient is a 79 year old F admitted 12/09/2019 due to poor urine output, weakness and malaise. 1. Severe sepsis secondary to community-acquired left lower lobe pneumonia- chest x-ray admission with left lower lobe infiltrate. Urine negative for strep and Legionella. Obtain sputum culture. Albuterol and DuoNeb aerosols. IV azithromycin and IV Rocephin. Further treatment per hospice discretion. 2. Acute on chronic combined hypoxic and hypercapnic respiratory failure secondary to #1 and acute exacerbation of chronic COPD-patient wears 3 L nasal cannula continuously at baseline. Patient with persistent hypoxia despite high flow oxygen. BiPAP attempted however patient did not tolerate and did not wish to continue BiPAP use. Patient stated she did not want to be intubated. Discussed hospice and patient and family agreeable for hospice transition. 3. Acute kidney injury on chronic kidney disease stage II-no significant improvement thus far with IV fluids, trend BMP. Hauser in place. Diuretic r egimen on hold. Nephrology consult placed. Renal ultrasound unremarkable. Patient is a poor candidate for dialysis due to hypotension and comorbidities. 4. Lactic acidosis-improved, treatment per #1. 5. Hypovolemic hyponatremia-IV fluids, trend BMP. 6. Hypotension-improved with IV fluids, monitor BP. 7. Suspected viral gastroenteritis-patient reports nausea, vomiting and diarrhea x1 week. No recent antibiotic use. Stool negative for enteric pathogen and C. difficile. 8. NSTEMI-patient denies chest pain. Unclear etiology. Continue medical management with aspirin, Plavix, statin. Beta-mark, losartan on hold due to hypotension. 9. Chronic diastolic CHF-Echocardiogram January 2019 demonstrated an EF of 65%, moderate global right ventricular systolic dysfunction, moderate tricuspid valve insufficiency, RVSP estimated to be 67 mmHg. Monitor for fluid overload given aggressive hydration due to renal failure. 10. Severe Pulmonary Hypertension with cor pulmonale- Echo with RVSP 67 mmHg as noted above. Follows with pulmonary medicine as outpatient. 11. Chronic polycythemia-secondary to chronic hypoxia. 12. Type 2 diabetes mellitus-hold oral regimen. Accu-Cheks with sliding scale insulin. 13. CAD status post PCI to RCA-continue aspirin, statin, Plavix. 14. Hypertension-hold BP regimen given hypotension. 15. Hyperlipidemia-continue statin. 16. Tobacco dependence-encouraged smoking cessation. 17. Moderate to severe protein calorie malnutrition-as evidenced by cachectic appearance, recent weight loss. Nutrition consult. General: Alert, Oriented x3, Cooperative HEENT: Atraumatic, PERRLA, EOMI, Normocephalic Oral: Dry Mucosa Neck: Supple, No JVD, Negative Carotid Bruits Lungs: Clear to auscultation, Diminished Cardiovascular: Regular rate, Regular Rhythm, Normal S1, Normal S2, No murmurs Abdomen: Bowel Sounds Present, Soft, Non Tender, Non-Distended Extremities: No clubbing, No cyanosis, Capillary Refill Less than 3 Seconds, Edema - Bilateral lower extremity Skin: No rashes, No breakdown Musculoskeletal: No Tenderness to Palpation of Joints or Extremities Neurological: Cranial nerves II-XII grossly intact, Neuro grossly intact Psych/Mental Status: Normal Affect, Appropriate Patient seen and examined prior to discharge. Physical assessment as noted above. Patient and family agreeable to focus on comfort measures and transition to hospice services. Given patient's declining respiratory and renal status, patient found to be appropriate for inpatient hospice unit. This patient was seen by GRACY Mon under the supervision of Dr. Johansen. - Physical Exam Vitals/I&O's: Vital Signs Temp Pulse Resp BP Pulse Ox 97.0 F L 71 24 H 121/71 H 89 12/10/19 10:30 12/10/19 15:15 12/10/19 13:02 12/10/19 10:30 12/10/19 13:02 Oxygen Flow Rate (L/min) 8 Oxygen Delivery Method Nasal Cannula Weight: 126 lb 12.253 oz Body Mass Index (BMI) 22.4 Intake and Output for Last 24 Hours 12/08/19 12/09/19 12/10/19 23:59 23:59 23:59 Intake Total 2430.00 / 2430.00 2108.33 / 2108.33 Output Total 75 / 75 40 / 40 Balance 2355.00 / 2355.00 2068.33 / 2068.33 Microbiology Past 72 Hours 12/10/19 09:55 Stool Enteric Bacteriology - Final 12/10/19 09:55 Stool C. difficile DNA Amplification - Final 12/09/19 21:25 Mucosa - Nasopharyngeal Respiratory Panel (PCR) - Final 12/09/19 20:05 Urine Catheter - Hauser Legionella Antigen - Final 12/09/19 20:05 Urine Catheter - Hauser Streptococcus pneumoniae Antigen (M - Final 12/09/19 15:58 Mucosa - Nasopharyngeal Influenza Types A,B Direct FA (ZONIA) - Final Laboratory Results 12/09/19 15:38: Lactic Acid Cancelled 12/09/19 15:38: Sodium Cancelled, Potassium Cancelled, Chloride Cancelled, Carbon Dioxide Cancelled, Anion Gap Cancelled, BUN Cancelled, Creatinine Cancelled, Estim Creat Clear Calc Cancelled, Est GFR (MDRD) Af Amer Cancelled, Est GFR (MDRD) Non-Af Cancelled, BUN/Creatinine Ratio Cancelled, Glucose Cancelled, Calcium Cancelled, Total Bilirubin Cancelled, AST Cancelled, ALT Cancelled, Alkaline Phosphatase Cancelled, Troponin I Cancelled, Total Protein Cancelled, Albumin Cancelled, Globulin Cancelled, Albumin/Globulin Ratio Cancelled 12/09/19 15:53: Urine Color Yellow, Urine Clarity Sl. Cloudy, Urine pH 5.0, Ur Specific [place] 1.020, Urine Protein 100 H, Urine Glucose (UA) 250 H, Urine Ketones 5 H, Urine Occult Blood 10 H, Urine Nitrite Negative, Urine Bilirubin Negative, Urine Urobilinogen Normal, Ur Leukocyte Esterase 25 H, Urine RBC 0-5 SEEN, Urine WBC 0-5 SEEN, Ur Squamous Epith Cells 0-5 SEEN, Amorphous Sediment 1+ URATE, Urine Bacteria 0 SEEN, Urine Mucus 0 SEEN 12/09/19 16:25: Sodium 127 L, Potassium 4.9, Chloride 90 L, Carbon Dioxide 23.0, Anion Gap 14, BUN 64 H, Creatinine 4.20 H, Estim Creat Clear Calc 8.59, Est GFR (MDRD) Af Amer 13 L, Est GFR (MDRD) Non-Af 11 L, BUN/Creatinine Ratio 15.2, Glucose 64 L, Calcium 7.6 L, Total Bilirubin 0.80, AST 37, ALT 27, Alkaline Phosphatase 90, Troponin I 0.340 H, Total Protein 6.3 L, Albumin 2.5 L, Globulin 3.8, Albumin/Globulin Ratio 0.7 L 12/09/19 16:25: Lactic Acid 4.5 H* 12/09/19 20:33: Troponin I 0.345 H 12/09/19 20:33: Lactic Acid 4.2 H* 12/09/19 21:31: POC Glucose 148 H 12/09/19 23:55: Troponin I 0.426 H 12/10/19 02:05: WBC 9.6, RBC 5.03, Hgb 15.6 H, Hct 49.0 H, MCV 97.4, MCH 31.0, MCHC 31.8 L, RDW Std Deviation 58.0 H, RDW Coeff of Dipika 16.1 H, Plt Count 143 L, MPV 11.4, Immature Gran % (Auto) 0.500, Neut % (Auto) 94.8 H, Lymph % (Auto) 2.7 L, [place] % (Auto) 1.9, Eos % (Auto) 0.0, Baso % (Auto) 0.1, Absolute Neuts (auto) 9.1 H, Absolute Lymphs (auto) 0.26 L, Nucleated RBC % 0, Differential Comment SCANNED 12/10/19 02:05: Sodium 127 L, Potassium 4.5, Chloride 92 L, Carbon Dioxide 21.0, Anion Gap 14, BUN 66 H, Creatinine 4.17 H, Estim Creat Clear Calc 8.65, Est GFR (MDRD) Af Amer 13 L, Est GFR (MDRD) Non-Af 11 L, BUN/Creatinine Ratio 15.8, Glucose 160 H, Calcium 6.7 L, Total Bilirubin 0.70, AST 61 H, ALT 41, Alkaline Phosphatase 110, Total Protein 6.0 L, Albumin 2.3 L, Globulin 3.7, Albumin/Globulin Ratio 0.6 L 12/10/19 02:05: Troponin I 0.466 H 12/10/19 02:05: Lactic Acid 2.1 H* 12/10/19 06:33: POC Glucose 148 H 12/10/19 08:00: Troponin I 0.653 H* 12/10/19 09:47: Specimen Type ART, Sample Site L Brachial, pH 7.22 L, Bicarbonate Actual 18.4 L, POC Total CO2 20, Base Excess -9 L, O2 Saturation 69 L, ABG pCO2 45.2 H, ABG pO2 43 L, Patrick Test POS, O2 Delivery Device Nasal Can, Liter Flow 5.0, Blood Gas Notified Whom RN, Blood Gas Notified Time 947 12/10/19 11:42: POC Glucose 260 H 12/10/19 13:50: Urine Urea Nitrogen 144 12/10/19 13:50: Urine Creatinine 71.20 12/10/19 13:50: U Random Total Protein 818.5 H 12/10/19 13:50: Ur Random Sodium 46 Current Medications Acetaminophen (Tylenol) 650 mg PO Q6H PRN PRN PRN Reason: Pain Score 1-10/Temp > 100.7 F Albuterol Sulfate (Ventolin Aerosols) 2.5 mg INHALATION Q2H PRN PRN PRN Reason: SHORTNESS OF BREATH Last Admin: 12/10/19 01:38 Dose: 2.5 mg Documented by: Albuterol/Ipratropium (Duoneb) 3 ml INHALATION Q4H.RT [facility] Last Admin: 12/10/19 15:09 Dose: Not Given Documented by: Aspirin (Aspirin, Baby) 81 mg PO DAILY@0800 [facility] Last Admin: 12/10/19 09:18 Dose: 81 mg Documented by: Clopidogrel Bisulfate (Plavix) 75 mg PO DAILY [facility] Last Admin: 12/10/19 09:18 Dose: 75 mg Documented by: Folic Acid (Folic Acid) 1 mg PO DAILY@0800 [facility] Last Admin: 12/10/19 09:18 Dose: 1 mg Documented by: Glucagon () 1 mg IM .X1 PRN PRN Reason: Hypoglycemia Guaifenesin (Mucinex) 1,200 mg PO BID [facility] Last Admin: 12/10/19 09:18 Dose: 1,200 mg Documented by: Heparin Sodium (Porcine) (Heparin Na) 5,000 unit SC Q12 [facility] Last Admin: 12/10/19 09:18 Dose: 5,000 unit Documented by: Sodium Chloride () 250 mls @ 15 mls/hr IV .[id number] PRN PRN Reason: Saline Flush Sodium Chloride () 250 mls @ 15 mls/hr IV .[id number] PRN PRN Reason: Additional IVPB Infusion Ceftriaxone Sodium (Rocephin) 1 gm in 50 mls @ 100 mls/hr IV Q24 [facility] Last Infusion: 12/10/19 09:59 Dose: Infused Documented by: Doxycycline Hyclate 100 mg/ (Dextrose) 260 mls @ 250 mls/hr IV Q12 [facility] Last Infusion: 12/10/19 12:03 Dose: Infused Documented by: Dextrose (Dextrose 10%-Water) 250 mls @ 999 mls/hr IV .Q16M PRN; Protocol PRN Reason: HYPOGLYCEMIA Sodium Chloride () 1,000 mls @ 60 mls/hr IV .[id number] [facility] Insulin Human Lispro (Humalog Kwikpen (Bkc)) 0 unit SC ACHS [facility]; Protocol Last Admin: 12/10/19 13:42 Dose: Not Given Documented by: Methylprednisolone (Solu-Medrol) 40 mg IV Q8 ION Last Admin: 12/10/19 13:40 Dose: 40 mg Documented by: Nitroglycerin (Nitrostat) 0.4 mg SUBLINGUAL Q5M PRN PRN Reason: CHEST Ondansetron HCl (Zofran) 4 mg IV Q8H PRN PRN PRN Reason: NAUSEA Sodium Chloride () 10 - 40 ml IV UD PRN PRN Reason: SALINE FLUSH Last Admin: 12/10/19 02:10 Dose: 20 ml Documented by: Home Medications: Medications to take at Discharge Aspirin [Aspirin, Baby] 81 mg PO DAILY@0800 04/30/15 Clopidogrel Bisulfate [Plavix] 75 mg PO DAILY 04/30/15 Folic Acid 0.8 mg PO DAILY@0800 04/30/15 Nitroglycerin (INPATIENT USE) [Nitrostat] 0.4 mg SUBLINGUAL Q5M PRN 04/30/15 Rosuvastatin Calcium [Crestor] 40 mg PO DAILY 04/30/15 glipiZIDE [Glucotrol] 10 mg PO BID #60 tab 02/03/19 cholecalciferol (vitamin D3) 125 mcg (5,000 unit) capsule 5,000 unit PO DAILY cap 02/25/19 empagliflozin 10 mg tablet 10 mg PO DAILY 02/25/19 insulin glargine U-300 conc 300 unit/mL (1.5 mL) subcutaneous pen 10 unit SC DAILY 90 Days #2.7 ml 02/25/19 omega-3 fatty acids 1,000 mg capsule 1,000 mg PO DAILY 02/25/19 furosemide 20 mg tablet 10 mg PO DAILY tab 06/04/19 metformin 500 mg tablet 500 mg PO BID tab 06/04/19 metoprolol succinate 100 mg tablet,extended release 24 hr 100 mg PO BID tab 06/04/19 sitagliptin 100 mg tablet 100 mg PO DAILY 06/04/19 spironolactone 25 mg tablet 12.5 mg PO DAILY tab 06/04/19 Losartan Potassium 50 mg PO DAILY 12/09/19 Naproxen Sodium [Aleve] 440 mg PO BID PRN PRN 12/09/19 Primary Care Physician: No Espinoza DO [Primary Care Provider] - Disposition: Hospice Medical Facility Minutes spent on discharge:: 35 Patient Condition:: Guarded Medical Necessity - Tobacco Use Smoking Status: Former smoker Meaningful Use Info Meaningful Use Diagnoses (Choose all that apply): None applicable <Carlyle Johansen - Last Filed: 12/10/19 16:20> Discharge Date and Diagnosis - Primary Discharge Diagnosis Assessement 1. severe sepsis 2. acute on chronic hypoxic and hypercapnic respiratory failure 3. acute pneumococcal pneumonia, suspected 4. YUDI, suspect prerenal 5. NSTEMI, suspect type II (demand) 6. 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 Multiple medical comorbidities: severe pulmonary HTN, HFpEF, polycythemia, DM2, CAD, moderate to sever protein calorie malnutrition - Secondary Discharge Diagnosis Chronic Problems (Last Reviewed 06/04/19 @ 14:11 by Nayeli Young) Pure hypercholesterolemia (Chronic) Chronic diastolic heart failure (Chronic) Respiratory failure (Chronic) Pulmonary hypertension (Chronic) RVSP 67 mmHg, likely WHO group 3 Tobacco abuse (Chronic) Essential hypertension (Chronic) Atherosclerotic heart disease of [place] coronary artery without angina pectoris (Chronic) Presence of stent in coronary artery (Chronic ~03/2002) PTCA/Stent of RCA 03/2002 COPD (chronic obstructive pulmonary disease) (Chronic) Chronic back pain (Chronic) Diabetes mellitus, type II (Chronic) Hospital Course and Treatment Imaging Results: 12/10/19 08:44 CXR [Chest 1 View (Portable)] [RAD] Stat Operations: None Summary of Care Provided: Patient seen and examined independently. Data reviewed. I agree with the above note by the nurse practitioner. The patient is a 79 year old F presents with shortness of breath. Patient with significant medical complexity with severe sepsis, acute on chronic resp failure, possible pneumonia, YUDI, NSTEMI, severe pulmonary HTN. Patient treated with abx and IVF. Failed to progress. Intubation addressed as pt did not tolerate BiPAP. Patient was agreeable to hospice. To be discharged to hospice unit today. [] - Physical Exam Vitals/I&O's: Vital Signs Temp Pulse Resp BP Pulse Ox 36.4 C L 71 20 H 95/44 L 83 02/05/20 15:00 12/10/19 15:15 12/10/19 15:00 12/10/19 15:00 12/10/19 15:00 Oxygen Flow Rate (L/min) 10 Oxygen Delivery Method Nasal Cannula Weight: 57.5 kg Body Mass Index (BMI) 22.4 Intake and Output for Last 24 Hours 12/08/19 12/09/19 12/10/19 23:59 23:59 23:59 Intake Total 2430.00 / 2430.00 2108.33 / 2108.33 Output Total 75 / 75 40 / 40 Balance 2355.00 / 2355.00 2068.33 / 2068.33 Microbiology Past 72 Hours 12/10/19 09:55 Stool Enteric Bacteriology - Final 12/10/19 09:55 Stool C. difficile DNA Amplification - Final 12/09/19 21:25 Mucosa - Nasopharyngeal Respiratory Panel (PCR) - Final 12/09/19 20:05 Urine Catheter - Hauser Legionella Antigen - Final 12/09/19 20:05 Urine Catheter - Hauser Streptococcus pneumoniae Antigen (M - Final 12/09/19 15:58 Mucosa - Nasopharyngeal Influenza Types A,B Direct FA (ZONIA) - Final Laboratory Results 12/09/19 15:53: Urine Color Yellow, Urine Clarity Sl. Cloudy, Urine pH 5.0, Ur Specific [place] 1.020, Urine Protein 100 H, Urine Glucose (UA) 250 H, Urine Ketones 5 H, Urine Occult Blood 10 H, Urine Nitrite Negative, Urine Bilirubin Negative, Urine Urobilinogen Normal, Ur Leukocyte Esterase 25 H, Urine RBC 0-5 SEEN, Urine WBC 0-5 SEEN, Ur Squamous Epith Cells 0-5 SEEN, Amorphous Sediment 1+ URATE, Urine Bacteria 0 SEEN, Urine Mucus 0 SEEN 12/09/19 16:25: Sodium 127 L, Potassium 4.9, Chloride 90 L, Carbon Dioxide 23.0, Anion Gap 14, BUN 64 H, Creatinine 4.20 H, Estim Creat Clear Calc 8.59, Est GFR (MDRD) Af Amer 13 L, Est GFR (MDRD) Non-Af 11 L, BUN/Creatinine Ratio 15.2, Glucose 64 L, Calcium 7.6 L, Total Bilirubin 0.80, AST 37, ALT 27, Alkaline Phosphatase 90, Troponin I 0.340 H, Total Protein 6.3 L, Albumin 2.5 L, Globulin 3.8, Albumin/Globulin Ratio 0.7 L 12/09/19 16:25: Lactic Acid 4.5 H* 12/09/19 20:33: Troponin I 0.345 H 12/09/19 20:33: Lactic Acid 4.2 H* 12/09/19 21:31: POC Glucose 148 H 12/09/19 23:55: Troponin I 0.426 H 12/10/19 02:05: WBC 9.6, RBC 5.03, Hgb 15.6 H, Hct 49.0 H, MCV 97.4, MCH 31.0, MCHC 31.8 L, RDW Std Deviation 58.0 H, RDW Coeff of Dipika 16.1 H, Plt Count 143 L, MPV 11.4, Immature Gran % (Auto) 0.500, Neut % (Auto) 94.8 H, Lymph % (Auto) 2.7 L, [place] % (Auto) 1.9, Eos % (Auto) 0.0, Baso % (Auto) 0.1, Absolute Neuts (auto) 9.1 H, Absolute Lymphs (auto) 0.26 L, Nucleated RBC % 0, Differential Comment SCANNED 12/10/19 02:05: Sodium 127 L, Potassium 4.5, Chloride 92 L, Carbon Dioxide 21.0, Anion Gap 14, BUN 66 H, Creatinine 4.17 H, Estim Creat Clear Calc 8.65, Est GFR (MDRD) Af Amer 13 L, Est GFR (MDRD) Non-Af 11 L, BUN/Creatinine Ratio 15.8, Glucose 160 H, Calcium 6.7 L, Total Bilirubin 0.70, AST 61 H, ALT 41, Alkaline P hosphatase 110, Total Protein 6.0 L, Albumin 2.3 L, Globulin 3.7, Albumin/Globulin Ratio 0.6 L 12/10/19 02:05: Troponin I 0.466 H 12/10/19 02:05: Lactic Acid 2.1 H* 12/10/19 06:33: POC Glucose 148 H 12/10/19 08:00: Troponin I 0.653 H* 12/10/19 09:47: Specimen Type ART, Sample Site L Brachial, pH 7.22 L, Bicarbonate Actual 18.4 L, POC Total CO2 20, Base Excess -9 L, O2 Saturation 69 L, ABG pCO2 45.2 H, ABG pO2 43 L, Patrick Test POS, O2 Delivery Device Nasal Can, Liter Flow 5.0, Blood Gas Notified Whom RN, Blood Gas Notified Time 947 12/10/19 11:42: POC Glucose 260 H 12/10/19 13:50: Urine Urea Nitrogen 144 12/10/19 13:50: Urine Creatinine 71.20 12/10/19 13:50: U Random Total Protein 818.5 H 12/10/19 13:50: Ur Random Sodium 46 Current Medications Acetaminophen (Tylenol) 650 mg PO Q6H PRN PRN PRN Reason: Pain Score 1-10/Temp > 100.7 F Albuterol Sulfate (Ventolin Aerosols) 2.5 mg INHALATION Q2H PRN PRN PRN Reason: SHORTNESS OF BREATH Last Admin: 12/10/19 01:38 Dose: 2.5 mg Documented by: Albuterol/Ipratropium (Duoneb) 3 ml INHALATION Q4H.RT [facility] Last Admin: 12/10/19 15:09 Dose: Not Given Documented by: Aspirin (Aspirin, Baby) 81 mg PO DAILY@0800 [facility] Last Admin: 12/10/19 09:18 Dose: 81 mg Documented by: Clopidogrel Bisulfate (Plavix) 75 mg PO DAILY [facility] Last Admin: 12/10/19 09:18 Dose: 75 mg Documented by: Folic Acid (Folic Acid) 1 mg PO DAILY@0800 [facility] Last Admin: 12/10/19 09:18 Dose: 1 mg Documented by: Glucagon () 1 mg IM .X1 PRN PRN Reason: Hypoglycemia Guaifenesin (Mucinex) 1,200 mg PO BID [facility] Last Admin: 12/10/19 09:18 Dose: 1,200 mg Documented by: Heparin Sodium (Porcine) (Heparin Na) 5,000 unit SC Q12 [facility] Last Admin: 12/10/19 09:18 Dose: 5,000 unit Documented by: Sodium Chloride () 250 mls @ 15 mls/hr IV .[id number] PRN PRN Reason: Saline Flush Sodium Chloride () 250 mls @ 15 mls/hr IV .[id number] PRN PRN Reason: Additional IVPB Infusion Ceftriaxone Sodium (Rocephin) 1 gm in 50 mls @ 100 mls/hr IV Q24 [facility] Last Infusion: 12/10/19 09:59 Dose: Infused Documented by: Doxycycline Hyclate 100 mg/ (Dextrose) 260 mls @ 250 mls/hr IV Q12 [facility] Last Infusion: 12/10/19 12:03 Dose: Infused Documented by: Dextrose (Dextrose 10%-Water) 250 mls @ 999 mls/hr IV .Q16M PRN; Protocol PRN Reason: HYPOGLYCEMIA Sodium Chloride () 1,000 mls @ 60 mls/hr IV .[id number] [facility] Insulin Human Lispro (Humalog Kwikpen (Bkc)) 0 unit SC ACHS [facility]; Protocol Last Admin: 12/10/19 13:42 Dose: Not Given Documented by: Methylprednisolone (Solu-Medrol) 40 mg IV Q8 [facility] Last Admin: 12/10/19 13:40 Dose: 40 mg Documented by: Nitroglycerin (Nitrostat) 0.4 mg SUBLINGUAL Q5M PRN PRN Reason: CHEST Ondansetron HCl (Zofran) 4 mg IV Q8H PRN PRN PRN Reason: NAUSEA Sodium Chloride () 10 - 40 ml IV UD PRN PRN Reason: SALINE FLUSH Last Admin: 12/10/19 02:10 Dose: 20 ml Documented by: Discharge Diet: No Restrictions Disposition: Hospice Medical Facility Minutes spent on discharge:: 35 Patient Condition:: Poor Meaningful Use Info Meaningful Use Diagnoses (Choose all that apply): None applicable Code Visit Inpatient E&M: 52724 Disch Hosp
--- NOTE | 2019-12-10 16:18 | NURSING ---
called [facility], report given to Tawny
== END 2019-12-10 16:31 | disposition hospice, inpatient (51) | DRG 871 ==
LOC: ED 14:37 → PCU 18:12
PROVIDERS: Hospitalist; Internal Medicine Nephrology; Admitting Provider Internal Medicine; Emergency Provider Emergency Medicine; PCP Internal Medicine
DX: A41.9 Sepsis, unspecified organism (principal); J13 Pneumonia due to Streptococcus pneumoniae; J96.21 Acute and chronic respiratory failure with hypoxia; J96.22 Acute and chronic respiratory failure with hypercapnia; N17.0 Acute kidney failure with tubular necrosis; E43 Unspecified severe protein-calorie malnutrition; I21.A1 Myocardial infarction type 2; J44.0 Chronic obstructive pulmonary disease with (acute) lower respiratory infection; I50.32 Chronic diastolic (congestive) heart failure; E87.2 Acidosis; E87.1 Hypo-osmolality and hyponatremia; I11.0 Hypertensive heart disease with heart failure; R65.20 Severe sepsis without septic shock; E11.22 Type 2 diabetes mellitus with diabetic chronic kidney disease; N18.2 Chronic kidney disease, stage 2 (mild); I27.29 Other secondary pulmonary hypertension; I27.81 Cor pulmonale (chronic); I25.10 Atherosclerotic heart disease of native coronary artery without angina pectoris; E11.51 Type 2 diabetes mellitus with diabetic peripheral angiopathy without gangrene; E86.0 Dehydration; I95.9 Hypotension, unspecified; E86.1 Hypovolemia; A08.4 Viral intestinal infection, unspecified; D75.1 Secondary polycythemia; E78.5 Hyperlipidemia, unspecified; F41.9 Anxiety disorder, unspecified; M54.9 Dorsalgia, unspecified; G89.29 Other chronic pain; Z68.22 Body mass index [BMI] 22.0-22.9, adult; Z79.02 Long term (current) use of antithrombotics/antiplatelets; Z79.84 Long term (current) use of oral hypoglycemic drugs; Z99.81 Dependence on supplemental oxygen; Z79.82 Long term (current) use of aspirin; Z79.4 Long term (current) use of insulin; Z79.899 Other long term (current) drug therapy; Z86.73 Personal history of transient ischemic attack (TIA), and cerebral infarction without residual deficits; I25.2 Old myocardial infarction; Z87.891 Personal history of nicotine dependence; Z95.5 Presence of coronary angioplasty implant and graft; Z90.49 Acquired absence of other specified parts of digestive tract
CPT/HCPCS: 36415; 36569; 36600; 51702; 71045; 71046; 76770; 80053; 81001; 82570; 82803; 82962; 83605; 84156; 84300; 84484; 84540; 85025; 87040; 87449; 87493; 87506; 87633; 87804; 93005; 93970; 94002; 94640; 97802; 99251; 99285; J7030; J7050; A4216; G0463; J2405